=== PATIENT | female | born 1945 | race Caucasian/White ===

== ENCOUNTER → 2020-05-18 10:53 | Outpatient (CLI) | payer OTHER, SELFPAY ==
--- NOTE | ~2020-05-18 | CT_ITS ---
EXAMINATION: CT lung screening DATE: 05/18/2020 11:32 INDICATION: Personal history of tobacco dependence, current smoker with 56 pack year history TECHNIQUE: Computed tomography (CT) of the chest was performed without intravenous contrast. The dose -length product (DLP) was 35.74 mGy-cm. Automated exposure control and iterative reconstruction techn ique were employed. COMPARISON: 11/15/2017 FINDINGS: The previously described 12 mm subsolid nodule of the left lower lobe has enlarged and is n ow predominantly solid measuring 1.7 x 1.5 cm. An approximately 7 mm subsolid nodule adjacent to the major fissure in the superior segment of the left lower lobe is not significantly changed in size. Sc arring is present in the lung apices. There are subsolid nodules of the right middle lobe measuring 4 mm and 5 mm on images 72 and 78, respectively. There is no pleural effusion or pneumothorax. The hea rt size is normal. There is calcified coronary artery atherosclerosis. No pathologically enlarged tho racic lymph nodes are identified. There is mild thoracic spondylosis. IMPRESSION: 1. Lung-RADS category 4B: Findings for which additional diagnostic testing and/or tissue sampling is recommended. PET/CT and/or CT-guided biopsy of the enlarging left lower lobe nodule is recommended. These findings and recommendations were discussed with Tiffany Padilla NP at 1317 hours on 05/18/2020 . Reviewed, dictated and finalized at location A. IMPRESSION: 1. Lung-RADS category 4B: Findings for which additional diagnostic testing and/ or tissue sampling is recommended. PET/CT and/or CT-guided biopsy of the enlarg ing left lower lobe nodule is recommended. These findings and recommendations were discussed with Tiffany Padilla NP at 13 17 hours on 05/18/2020.
== END ==
PROVIDERS: PCP Nurse Practitioner; Visit Provider Nurse Practitioner Family
DX: Z12.2 Encounter for screening for malignant neoplasm of respiratory organs (principal); Z87.891 Personal history of nicotine dependence; R91.1 Solitary pulmonary nodule
CPT/HCPCS: G0297

== ENCOUNTER 2020-05-26 01:31 | Outpatient (CLI) | payer OTHER, SELFPAY ==
[2020-05-26 18:17] LABS: SARS-CoV-2 RNA PCR Negative
== END 2020-05-26 01:32 | disposition home or self-care (01) ==
LOC: ANHCOVIDDT 01:32
PROVIDERS: PCP Nurse Practitioner; Visit Provider Nurse Practitioner Family
DX: Z01.812 Encounter for preprocedural laboratory examination (principal); Z20.828 Contact with and (suspected) exposure to other viral communicable diseases
CPT/HCPCS: 87635; C9803; U0003

== ENCOUNTER 2020-05-28 08:57 | Outpatient (CLI) | payer OTHER, SELFPAY ==
[2020-05-21 14:13] VITALS: BMI 16.7
[2020-05-28] VITALS (11 sets, daily range): BP systolic 129–168; BP diastolic 67–83; PULSE 55–69; RESP 16–18; O2SAT 96–100
--- NOTE | ~2020-05-28 | XR_ITS ---
EXAMINATION: XR chest 1V portable DATE: 05/28/2020 14:45 INDICATION: Left lung nodule status post percutaneous biopsy. TECHNIQUE: A single frontal view of the chest was obtained. COMPARISON: Chest single view at 12:35 PM FINDINGS: There are mild airspace opacities in left lower lobe. No pleural effusion or pneumothorax. The heart size is normal. IMPRESSION: 1. Mild airspace opacities in left lower lobe with interval improvement, consistent with iatrogenic h emorrhage. Reviewed, dictated and finalized at location A. IMPRESSION: 1. Mild airspace opacities in left lower lobe with interval improvement, consis tent with iatrogenic hemorrhage.
--- NOTE | ~2020-05-28 | CT_ITS ---
EXAMINATION: CT biopsy lung DATE: 05/28/2020 12:00 INDICATION: Left lung lower lobe nodule. TECHNIQUE: The procedure including the risks, benefits, and alternatives and possibility of chest tub e placement were discussed with the patient. Risks discussed included infection, approximately 1/20 r isk of symptomatic hemorrhage beyond mild hemoptysis, approximately 1/3 risk of pneumothorax, approxi mately 1/10 risk of pneumothorax severe enough to warrant chest tube placement, and rarely . The patient understood the risks and agreed to proceed. The patient was placed prone. The skin overlyin g the left lung lower lobe was prepped and draped in sterile fashion. Anesthetic was administered wi th 1% lidocaine subcutaneously. A 19 gauge outer needle was advanced under CT guidance to the lesion of interest. A 20 gauge core biopsy needle was then used to obtain 2 core biopsy specimens. The need le was removed and the entry site was cleaned and dressed. The mA was adjusted according to patient s ize. Iterative reconstruction technique was employed. The dose-length product was 146.31 mGy-cm. The re were no immediate complications. FINDINGS: CT images demonstrate the outer needle tip adjacent to a 1.7 cm nodule in left lung lower l obe. IMPRESSION: 1. CT-guided core needle biopsy of a nodule in left lung lower lobe. Reviewed, dictated and finalized at location A.
--- NOTE | ~2020-05-28 | XR_ITS ---
EXAMINATION: XR chest 1V portable DATE: 05/28/2020 12:47 INDICATION: Left lung nodule status post percutaneous biopsy. TECHNIQUE: A single frontal view of the chest was obtained on 2 radiographs. COMPARISON: Chest single view at 11:46 AM FINDINGS: There are airspace opacities in left lower lobe. No pleural effusion or pneumothorax. The h eart size is normal. IMPRESSION: 1. Mildly worsened airspace opacities in left lower lobe, consistent with iatrogenic hemorrhage. Reviewed, dictated and finalized at location A. IMPRESSION: 1. Mildly worsened airspace opacities in left lower lobe, consistent with iatro genic hemorrhage.
--- NOTE | ~2020-05-28 | XR_ITS ---
EXAMINATION: XR chest 1V DATE: 05/28/2020 11:50 INDICATION: Left lung lower lobe nodule status post percutaneous biopsy. TECHNIQUE: A single frontal view of the chest was obtained. COMPARISON: Chest CT 04/2520 FINDINGS: There is mild scarring at the lung apices. Skinfolds overlie left chest. There are airspace opacities in superior segment left lower lobe. No pleural effusion or pneumothorax. The heart size i s normal. IMPRESSION: 1. Airspace opacities in superior segment left lower lobe, consistent with iatrogenic hemorrhage. Reviewed, dictated and finalized at location A. IMPRESSION: 1. Airspace opacities in superior segment left lower lobe, consistent with iatr ogenic hemorrhage.
[2020-05-28 09:27] LABS: Platelet Count Result 329 k/mm3 (150-375)
[2020-05-28 09:36] LABS: INR 0.9; Prothrombin Time 12.3 Seconds (11.1-14.7)
--- NOTE | 2020-05-28 18:07 | SUR.PHASEII ---
0781 DR ELLIS WAS NOTIFIED THAT PT IS STABLE AND DRESSING ON RIGHT UPPER BACK IS STILL CLEAN WITH ONLY SMALL AMOUNT OF SHADOWING THE SIZE OF A PENCIL ERASER THAT HAS REMAINED STABLE.
== END 2020-05-28 15:00 | disposition home or self-care (01) ==
PROVIDERS: Radiology Diagnostic Radiology; PCP Family Medicine; Visit Provider Nurse Practitioner Family
DX: R91.1 Solitary pulmonary nodule (principal)
CPT/HCPCS: 32405; 36415; 71045; 77012; 85049; 85610; 88305

== ENCOUNTER 2020-06-14 12:41 | Outpatient (CLI) | payer OTHER, SELFPAY ==
[2020-06-14 12:55] LABS: Basophils Percent Auto 0.5 % (0.2-1.2); Eosinophils Percent Auto 0.4 % (0-4.4); Hematocrit 40.8 % (37.0-47.0); Hemoglobin 13.3 g/dL (12.0-15.0); Immature Granulocyte Absolute 0.02 K/mm3 (0.00-0.031); Immature Granulocyte Percent A 0.3 % (0-0.5); Lymphocytes Absolute Auto 1.51 K/mm3 (0.9-3.2); Lymphocytes Percent Auto 19.2 % (18.3-44.2); Mean Corpuscular HGB Conc 32.6 g/dl (32-36); Mean Corpuscular Hemoglobin 31.3 pg (26-34); Mean Platelet Volume 8.6 fl (7.4-10.4); Monocytes Absolute Auto 0.5 K/mm3 (0.1-0.6); Monocytes Percent Auto 6.9 % (2.6-8.5); Neutrophils Absolute Auto 5.7 K/mm3 (1.3-6.7); Neutrophils Percent Auto 72.7 % (45.5-73.1); Platelet Count Result 356 k/mm3 (150-375); Red Blood Count 4.25 M/mm3 (4.2-5.4); Red Cell Distribution Width 13.7 % (11.5-14.5); White Blood Count 7.9 K/mm3 (4.5-10.0)
[2020-06-14 16:33] LABS: Alanine Aminotransferase 46 U/L (4-35); Albumin Level 4.5 g/dL (3.5-5.1); Alkaline Phosphatase 114 U/L (38-126); Anion Gap 6 mmol/L (8-16); Aspartate Amino Transferase 42 U/L (14-36); Bilirubin,Total 0.4 mg/dL (0.2-1.3); Blood Urea Nitrogen 14 mg/dL (7-17); Calcium 10.3 mg/dL (8.4-10.2); Carbon Dioxide 33 mmol/L (22-30); Chloride 100 mmol/L (98-107); Estimated Glomerular Filt Rate > 60; Glucose 92 mg/dL (65-105); Potassium 4.6 mmol/L (3.4-5.0); Sodium 139 mmol/L (137-145)
== END 2020-06-14 12:42 | disposition home or self-care (01) ==
LOC: ANHLAB 12:42
PROVIDERS: PCP Family Medicine; Visit Provider Internal Medicine Hematology & Oncology
DX: C34.32 Malignant neoplasm of lower lobe, left bronchus or lung (principal)
CPT/HCPCS: 36415; 80053; 85025

== ENCOUNTER 2020-07-06 08:58 | Outpatient (CLI) | payer OTHER, SELFPAY ==
--- NOTE | ~2020-07-06 | PE_ITS ---
EXAMINATION: PET skull to mid thigh DATE: 07/06/2020 12:20 INDICATION: Malignant neoplasm of the left lower lobe TECHNIQUE: Blood glucose level was 98 mg/dL. 10.671 mCi of 18-fluorodeoxyglucose (18-FDG) was adminis tered i.v. Low dose computed tomography (CT) images were acquired from the base of the brain to the p roximal thighs for attenuation correction and anatomic localization. Positron emission tomography (PE T) images were acquired in the same distribution beginning 61 minutes after injection. The dose-lengt h product (DLP) was 202.54 mGy-cm. COMPARISON: 05/28/2020 FINDINGS: Head/neck: No abnormal FDG uptake is identified. Chest: There is a 1.8 x 1.5 cm left lower lobe nodule with abnormal FDG uptake and SUV max of 3.8. No additional suspicious abnormal FDG uptake is identified. Tiny groundglass nodules of the right lung described on the comparison CT are stable and without FDG uptake. Also seen is a stable cavitary nodu le in the superior segment of the left lower lobe without FDG uptake. There is no pleural effusion or pneumothorax. No pathologically enlarged thoracic lymph nodes are identified. The heart size is norm al. Calcified coronary artery atherosclerosis is present. Abdomen/pelvis/proximal thighs: No abnormal FDG uptake is identified. Physiologic FDG activity is pre sent in the bowel and urinary tract. The liver, spleen, pancreas, gallbladder, and adrenal glands are normal. The kidneys are unremarkable. No pathologically enlarged abdominal or pelvic lymph nodes are identified. There is calcified atherosclerosis of the aorta and many of the other arteries. There is no free intraperitoneal gas or evidence of bowel obstruction. Musculoskeletal: No abnormal FDG uptake is identified. IMPRESSION: 1. Left lower lobe nodule with abnormal FDG uptake, consistent with biopsy-proven adenocarcinoma. No evidence of metastatic disease although absence of FDG uptake in small subsolid nodules could relate to their size and composition and attention on follow-up examination is recommended. Reviewed, dictated and finalized at location A. [employer] TRIAL SPECIALIST IMPRESSION: 1. Left lower lobe nodule with abnormal FDG uptake, consistent with biopsy-prov en adenocarcinoma. No evidence of metastatic disease although absence of FDG up take in small subsolid nodules could relate to their size and composition and a ttention on follow-up examination is recommended.
[2020-07-06 10:53] LABS: Glucose Point of Care 98 (65-105)
--- NOTE | 2020-07-16 12:19 | WPDPFTINT ---
PFT Interpretation PFT Interpretation: This PFT met all criteria for ATS standards and reproducibility FEV/FVC 66% FEV1 60% or 1.26 liters FVC 64% or 1.92 liters No bronchodilator challenge was given TLC 114% RV 189% RV/TLC 68% DLCO 72% when adjusted for alveolar volume but not adjusted for hemoglobin Flow volume loops showed significant expiratory coving Impression: Moderate airflow obstruction with air trapping and mildly decreased diffusion capacity. No bronchodilator challenge was given. This pattern is suggestive of COPD but I cannot rule out an Asthma component. Clinical correlation is advised.
== END 2020-07-06 08:59 | disposition home or self-care (01) ==
PROVIDERS: PCP Family Medicine; Visit Provider Internal Medicine Hematology & Oncology
DX: C34.32 Malignant neoplasm of lower lobe, left bronchus or lung (principal)
CPT/HCPCS: 78815; 94375; 94726; 94729; A9552

== ENCOUNTER 2020-08-10 08:04 | Outpatient (CLI) | payer OTHER, SELFPAY ==
--- NOTE | 2020-08-10 08:10 | ECHO_ITS ---
Patient Info Name: Sharmila Azevedo Age: 75 years : 1945 Gender: Female Ht: 66 in Wt: 104 lbs BSA: 1.47 m2 HR: 67 bpm BP: 132 / 66 mmHg Technical Quality: Good Exam Date: 08/10/2020 8:26 AM Exam Location: [facility] Patient Status: Outpatient Admit Date: 08/10/2020 Staff Ordering Physician: Tiffany Padilla NP Network Support: Cristobal Murcia RDCS, RT Attending Provider: Tiffany Padilla NP Referring Physician: Valerie DELGADO; Exam Type: CA echo doppler color flow Study Info Indications R60.9 - Edema, unspecified Complete two-dimensional, color flow and Doppler transthoracic echocardiogram is performed. Strain analysis performed. Summary 1. Complete two-dimensional, color flow and Doppler transthoracic echocardiogram is performed. 2. Left ventricular chamber dimension is normal. 3. Left ventricular systolic function is normal, estimated at 65-70%. 4. The left ventricular diastolic function is grade I diastolic dysfunction. 5. E/e' 19 is elevated. 6. Global longitudinal strain is normal at -18.4%. 7. Left atrial chamber dimension is moderately enlarged. 8. There is mild aortic valve sclerosis. 9. The mitral valve has moderately calcified annulus. 10. There is mild to moderate mitral valve regurgitation. 11. There is mild to moderate tricuspid valve regurgitation. 12. Mild pulmonary hypertension, estimated pulmonary arterial systolic pressure is 42 mmHg. 13. There is trace pulmonic regurgitation. 14. Normal inferior vena cava with <50% collapse upon inspiration consistent with elevated right atrial pressure, 10 mmHg. Left Ventricle E/e' 19 is elevated. Global longitudinal strain is normal at -18.4%. Left ventricular chamber dimension is normal. Left ventricular systolic function is normal, estimated at 65-70%. The left ventricular diastolic function is grade I diastolic dysfunction. Right Ventricle Right ventricular chamber dimension is normal. Right ventricular systolic function is normal. Left Atria Left atrial chamber dimension is moderately enlarged. Right Atria Right atrial chamber dimension is normal. Aortic Valve The aortic valve is trileaflet. There is mild aortic valve sclerosis. There is no aortic valve stenosis. There is no aortic valve regurgitation. Pulmonic Valve There is trace pulmonic regurgitation. Mitral Valve The mitral valve has moderately calcified annulus. There is no mitral valve stenosis. There is mild to moderate mitral valve regurgitation. Tricuspid Valve There is mild to moderate tricuspid valve regurgitation. Mild pulmonary hypertension, estimated pulmonary arterial systolic pressure is 42 mmHg. Pericardium/Pleural There is no pericardial effusion. Inferior Vena Cava Normal inferior vena cava with <50% collapse upon inspiration consistent with elevated right atrial pressure, 10 mmHg. Aorta The aortic root size at the sinus of Valsalva is normal. Left Ventricular Outflow Tract Name Value Normal LVOT 2D LVOT Diameter 2.0 cm LVOT Doppler LVOT Peak Gradient 6 mmHg LVOT Mean Gradient 3
== END 2020-08-10 08:05 | disposition home or self-care (01) ==
PROVIDERS: PCP Family Medicine; Visit Provider Nurse Practitioner Family
DX: M79.89 Other specified soft tissue disorders (principal); I08.3 Combined rheumatic disorders of mitral, aortic and tricuspid valves
CPT/HCPCS: 93306

== ENCOUNTER 2020-10-04 01:13 | Day surgery (SDC) | payer OTHER, SELFPAY ==
[2020-09-29 15:16] VITALS: BMI 16.9
[2020-10-04] VITALS (15 sets, daily range): BP systolic 133–181; BP diastolic 57–80; PULSE 62–80; RESP 16–20; TEMP 35.9–36.9; O2SAT 84–100; BMI 16.5
--- NOTE | ~2020-10-04 | XR_ITS ---
EXAMINATION: XR chest 2V DATE: 10/05/2020 08:45 INDICATION: Right pneumothorax TECHNIQUE: AP and lateral views of the chest are obtained. COMPARISON: 10/04/2020 FINDINGS: There is a tiny persistent right apical pneumothorax without significant change. A right ch est tube is partially retracted. The chest tube demonstrates to side ports, one of which is in the pl eural space and the other is in the right chest wall. A right internal jugular Port-A-Cath ends with its tip in the distal superior vena cava. There are stable left basilar airspace opacities. A small l eft pleural effusion is present. The cardiomediastinal silhouette is normal. There is severe thoracic spondylosis. IMPRESSION: 1. Persistent small right apical pneumothorax without significant change. Right chest drain has been partially retracted with one of two side port is now seen in the chest wall. 2. Small left pleural effusion. 3. Stable left basilar airspace opacities, consistent with atelectasis versus pneumonia. Reviewed, dictated and finalized at location A. LE WRAPPER IMPRESSION: 1. Persistent small right apical pneumothorax without significant change. Right chest drain has been partially retracted with one of two side port is now seen in the chest wall. 2. Small left pleural effusion. 3. Stable left basilar airspace opacities, consistent with atelectasis versus p neumonia.
--- NOTE | ~2020-10-04 | XR_ITS ---
EXAMINATION: XR chest port-a-cath/central DATE: 10/04/2020 13:40 INDICATION: Port placement. TECHNIQUE: A single frontal view of the chest was obtained. COMPARISON: Chest single view 05/28/2020 FINDINGS: There is volume loss of left hemithorax, likely from left lower lobectomy. There is a small left pleural effusion. There is mild scarring at left lung apex. There are airspace opacities at lef t lung base. There is a small right pneumothorax. The heart size is normal. There is a right internal jugular port with tip in superior vena cava. IMPRESSION: 1. Small right pneumothorax. 2. Small left pleural effusion. 3. Airspace opacities at left lung base, consistent with atelectasis versus pneumonia. 4. Mild scarring at left lung apex. 5. Right internal jugular port with tip in superior vena cava. Reviewed, dictated and finalized at location A. RTISING CONSULTANT IMPRESSION: 1. Small right pneumothorax. 2. Small left pleural effusion. 3. Airspace opacities at left lung base, consistent with atelectasis versus pne umonia. 4. Mild scarring at left lung apex. 5. Right internal jugular port with tip in superior vena cava.
--- NOTE | ~2020-10-04 | XR_ITS ---
XR chest-chest tube insert/pos 10/04/2020 17:36 Indication: Post chest tube placement. Evaluate pneumothorax. Procedure: AP portable chest Comparison: Comparison to multiple prior studies sequentially, with oldest reviewed study dated 05/01. Findings: Interval placement of right chest tube with significantly decreased size of right pneumotho rax. Portacatheter tip in the SVC. Stable cardiomediastinal silhouette. There is focal consolidation the left lower lung with small left pleural effusion. Impression: 1: Decreased size of right pneumothorax post chest tube placement. 2: Left lower lobe airspace disease which may represent atelectasis and/or pneumonia. 3: Small left pleural effusion. Reviewed, dictated and finalized at location A. APEUTIC SPECIALIST Impression: 1: Decreased size of right pneumothorax post chest tube placement. 2: Left lower lobe airspace disease which may represent atelectasis and/or pneu monia. 3: Small left pleural effusion.
--- NOTE | ~2020-10-04 | XR_ITS ---
EXAMINATION: XR chest 2V DATE: 10/05/2020 12:04 INDICATION: Right pneumothorax TECHNIQUE: PA and lateral views of the chest are obtained. COMPARISON: 0843 hours FINDINGS: A small right apical pneumothorax persists without significant change. A right-sided chest tube is again seen with one side port remaining in the subcutaneous tissues of the right chest wall. The tip of the tube is within the thorax. The heart size is normal. A small left pleural effusions un changed. Left basilar airspace opacities are stable. Severe thoracic spondylosis is noted. IMPRESSION: 1. Small right apical pneumothorax without significant change. 2. Stable small left pleural effusion. Repeat. Stable left basilar airspace opacity, consistent with atelectasis versus pneumonia. Reviewed, dictated and finalized at location A. ENSARY TECHNICIAN IMPRESSION: 1. Small right apical pneumothorax without significant change. 2. Stable small left pleural effusion. Repeat. Stable left basilar airspace opa city, consistent with atelectasis versus pneumonia.
--- NOTE | ~2020-10-04 | XR_ITS ---
EXAMINATION: XR fl guide central line place EXAM DATE: 10/04/2020 13:29 INDICATION: Right-sided portacatheter placement. TECHNIQUE: Fluoroscopy used during XR fl guide central line place performed by Dr. Rhett Villareal MD. The DAP for this procedure was 0.02 mGym2. FINDINGS: Right IJ approach portacatheter identified, tip at the cavoatrial junction. Correlate wit h procedure note. IMPRESSION: Fluoroscopy used during portacatheter placement.. Reviewed, dictated and finalized at location B. TICE PERFORMANCE MANAGER
--- NOTE | ~2020-10-04 | XR_ITS ---
XR chest 1V portable 10/04/2020 15:34 Indication: AP portable chest Procedure: Comparison to multiple prior studies sequentially, with oldest reviewed study dated 05/28. Comparison: Comparison to multiple prior studies sequentially, with oldest reviewed study dated 05/01. Findings: Significant enlargement of large right pneumothorax shift to the left. Small left pleural e ffusion. Mild interstitial edema. Portacatheter tip in the SVC. Small amount of subcutaneous gas in t he left supraclavicular region correlate for recent intervention. Impression: 1: Enlarging right pneumothorax with mediastinal shift to the left. 2: Mild interstitial edema. 3: Small left pleural effusion. Reviewed, dictated and finalized at location A. COOK Impression: 1: Enlarging right pneumothorax with mediastinal shift to the left. 2: Mild interstitial edema. 3: Small left pleural effusion.
--- NOTE | 2020-10-04 08:25 | PM.HPGS ---
History of Present Illness History of Present Illness Consent: Risks, benefits, and alternatives of placement of a Port-A-Cath have been discussed and questions answered. Patient agrees to proceed with procedure. Chief complaint: Malignant Neoplasm LLL Of Lung Narrative: Sharmila Azevedo is a 75 year old female who was recently found to have a malignant neoplasm of the lower lobe left lung. Further treatment including chemotherapy is planned. Therefore she has been referred for placement of a Port-A-Cath. Pt has had a lung lobectomy on the left about 3 weeks ago and has recovered well form that. She has some Tramadol at home to use for pain. Review of Systems Constitutional: Constitutional: Reports no additional constitutional complaints, Reports fatigue and Denies malaise Eyes: Eyes: Denies change in vision and Denies loss of vision ENT: Reports Normal hearing present, Denies change in voice, Denies dizziness, Denies hoarseness, Denies sore throat and Reports other (no scars from previous surgery. ) Cardiovascular: Cardiovascular: Denies chest pain, Denies leg edema and Denies dyspnea Respiratory: Respiratory: Denies cough, Reports dyspnea ( Mild with exertion) and Denies wheezing Comments: Long history of smoking 1 pack a day. Pt had a Thorocospy and left lower lobe lung resection for CAncer at [facility] in [facility] about 3 weeks ago. Gastrointestinal: Gastrointestinal: Denies hematochezia, Denies change in bowel habits and Denies heartburn Genitourinary: Genitourinary: Denies urinary frequency and Denies urinary incontinence Neurologic: Reports Normal hearing present, Denies confusion, Denies dizziness, Denies loss of vision, Denies memory loss and Denies seizure-like activity Psychiatric: Psychiatric: Denies confusion, Denies depression and Denies memory loss Endocrine: Endocrine: Denies cold intolerance and Reports fatigue Hematologic/Lymphatic: Hematologic/Lymphatic: Denies easy bleeding and Denies easy bruising Allergic/Immunologic: Allergic/Immunologic: Denies wheezing PMFSH Past Medical History Medical History Abnormal echocardiogram Adenocarcinoma of lung (~07/2020) Chronic migraine with aura Essential hypertension (Unknown) Surgical History Surgical History History of colonoscopy with polypectomy (~07/2018) Dr Ritter - repeat in 5 years History of lung biopsy (~05/2020) Family History Family History Mother Hypertension Cerebrovascular accident Sibling Asthma Social History Social History Smoking status: Former smoker Tobacco type: cigarettes Second hand tobacco smoke exposure: Yes Additional smoking assessment comments: STATES 1PK/DAY/SINCE AGE 18 - NONE SINCE 09/12/20 Alcohol intake: former Drinks per week: 10 Alcohol use details: STATES NONE SINCE 09/12/20 Substance use: never Substance use type: does not use Living arrangements: alone Additional living arrangements comments: [facility] CURRENT[facility] IN [facility] Spiritual care concerns: No Meds Home Medications and Allergies Home Medications Medication Instructions Recorded Confirmed Type aspirin 81 mg chewable tablet 81 mg PO DAILY #30 tablet 06/04/19 10/04/20 Rx alendronate 70 mg tablet 70 mg PO WEEKLY #14 tablet 03/30/20 10/04/20 Rx calcium carbonate [Calcium 600] 1,200 mg PO DAILY 05/21/20 10/04/20 History cholecalciferol (vitamin D3) 50 50 mcg PO DAILY 07/15/20 10/04/20 History mcg (2,000 unit) capsule B-complex with vitamin C [Vitamin 1 tablet PO DAILY 09/29/20 10/04/20 History B Complex-C] acetaminophen [Tylenol] 650 mg PO Q6H PRN 09/29/20 10/04/20 History apixaban [Eliquis] See Rx Instructions .ROUTE .COMPLEX 09/29/20 10/04/20 History docusate sodium [Colace] 100 mg PO B
--- NOTE | 2020-10-04 08:56 | ECG_ITS ---
Measurements Intervals [place] Rate: 68 P: 62 LA: 137 QRS: 68 QRSD: 87 T: 66 QT: 406 QTc: 432 Interpretive Statements SINUS RHYTHM WITH SINUS ARRHYTHMIA POSSIBLE LEFT ATRIAL ENLARGEMENT BASELINE ARTIFACT- I, III, AVR, AVL, AVF BORDERLINE ECG Electronically Signed On 10-04-2020 11:48:55 CITY EDITOR by Abdoulaye Amaro D.O.
[2020-10-04] MEDS: KETOROLAC 15 MG/ML VIAL (*BKC) IV PUSH (11:24)
[2020-10-04] MEDS: LACTATED RINGERS 1,000 ML 30 ML IV CONT (11:24)
[2020-10-04 11:38] LABS: INR 0.9; Prothrombin Time 12.3 Seconds (11.1-14.7)
[2020-10-04 11:39] LABS: Partial Thromboplastin Time 29.5 SECONDS (22.3-36.8)
--- NOTE | 2020-10-04 12:13 | WPDANESEPPF ---
Anes - Initial Pre Proc Eval Procedure: Operation Date: 10/04/20 12:30 Proposed Procedures p Insertion Kenna Cath - Rhett Villareal MD Date/Time: 10/04/20 12:13 Surgeon: Rhett Villareal MD Pre Op Diagnosis: Malignant Neoplasm LLL Of Lung Patient Data Age: 75 Gender: F Height: 5 ft 6 in Weight: 44.25 kg Last Vital Signs Temp 36.8 C 10/04/20 10:48 Pulse 76 10/04/20 10:48 Resp 16 10/04/20 10:48 BP 133/57 L 10/04/20 10:48 Pulse Ox 100 10/04/20 10:48 Allergies Allergy/AdvReac Type Severity Reaction Status Date / Time No Known Allergies Allergy Unverified 10/04/20 11:00 Home Medications Medication Instructions Recorded Confirmed Type aspirin 81 mg chewable tablet 81 mg PO DAILY #30 tablet 06/04/19 10/04/20 Rx alendronate 70 mg tablet 70 mg PO WEEKLY #14 tablet 03/30/20 10/04/20 Rx calcium carbonate [Calcium 600] 1,200 mg PO DAILY 05/21/20 10/04/20 History cholecalciferol (vitamin D3) 50 50 mcg PO DAILY 07/15/20 10/04/20 History mcg (2,000 unit) capsule B-complex with vitamin C [Vitamin 1 tablet PO DAILY 09/29/20 10/04/20 History B Complex-C] acetaminophen [Tylenol] 650 mg PO Q6H PRN 09/29/20 10/04/20 History apixaban [Eliquis] See Rx Instructions .ROUTE .COMPLEX 09/29/20 10/04/20 History docusate sodium [Colace] 100 mg PO BID 09/29/20 10/04/20 History gabapentin 100 mg PO TID PRN 09/29/20 10/04/20 History lisinopril 5 mg PO DAILY 09/29/20 10/04/20 History Laboratory Tests 10/04/20 11:04 PT 12.3 Seconds Seconds (11.1-14.7) INR 0.9 APTT 29.5 SECONDS SECONDS (22.3-36.8) Patient hx anesthesia problems: none Family hx anesthesia problems: none PMFSH Past Medical History Medical History Abnormal echocardiogram Adenocarcinoma of lung (~07/2020) Chronic migraine with aura Essential hypertension (Unknown) Surgical History Surgical History History of colonoscopy with polypectomy (~07/2018) Dr Ritter - repeat in 5 years History of lung biopsy (~05/2020) Family History Family History Mother Hypertension Cerebrovascular accident Sibling Asthma Social History Social History Smoking status: Former smoker Tobacco type: cigarettes Second hand tobacco smoke exposure: Yes Additional smoking assessment comments: STATES 1PK/DAY/SINCE AGE 18 - NONE SINCE 09/12/20 Alcohol intake: former Drinks per week: 10 Alcohol use details: STATES NONE SINCE 09/12/20 Substance use: never Substance use type: does not use Living arrangements: alone Additional living arrangements comments: [facility] Spiritual care concerns: No Anes - Eval Final PreProcedure Day of Procedure 10/04/20 12:13 Patient weight: thin Heart: regular rate and rhythm Lungs: decreased breath sounds Airway: Mallampati scale class II Neurological: alert and oriented Last oral intake: >/= 8 hours ASA classification: III Emergent: no Anesthetic plan: proceed Anesthesia type and monitoring: general GIVS and standard monitoring Informed Consent: The patient's anesthetic plan and its attendant risks and benefits were discussed with the patient/family/POA. Questions were solicited and answers provided to the satisfaction of the patient/family/POA.
--- NOTE | 2020-10-04 12:42 | WPDHPUPDATE1 ---
History and Physical Update Update Date/Time: 10/04/20 12:42 History and Physical has been reviewed, including an updated exam of the patient. There are NO changes in the patient's condition. Risks, benefits, and alternatives of a US guided walker cath placement have been discussed and questions answered. Patient agrees to proceed with procedure.
[2020-10-04] MEDS: ceFAZolin 2 GM/D5W 50 ML 2 GM/50 ML BAG IVPB (12:48)
[2020-10-04] MEDS: BUPIVACAINE/EPINEPHRINE 0.5% 30 ML VIAL 50 ML INFILTRATE (13:25)
[2020-10-04] MEDS: HEPARIN SODIUM 5,000 UNITS/ML VIAL 5000 UNITS IRRIGATION (13:27)
--- NOTE | 2020-10-04 13:38 | PM.PROC ---
Procedure Note - Detailed Date of procedure: 10/04/20 Pre-op diagnosis: Malignant Neoplasm LLL Of Lung Post-op diagnosis: same Procedure performed: US guided placement of Port-A-Cath Description of procedure: Patient was seen and marked in the pre-op area prior to coming to the OR. Patient was brought to the operating room. He was placed supine on the operating table and general IV sedation was induced. The nurse vending technician provided oxygen and IV sedation. Patient's head was carefully turned to the left side while in the supine position and the patient's entire neck and anterior chest on both sides was prepped and draped in the usual sterile fashion. Following this the appropriate time-out was completed confirming procedure and patient. We confirmed that all the needed equipment was present in the room. Following this the ultrasound probe was draped into the field and using the probe we carefully identified the carotid artery and jugular vein on the right neck. I marked the skin directly over the Rt. internal jugular vein. Following this, using the continuous ultrasound guidance, a Cook needle was placed through the skin into this vein. I also did take 1 image X and saved to the chart with respect to the patient's right neck vascular anatomy. I then was able to draw back good dark blood. Once this was completed a guidewire using a J-tip was advanced through the needle and then the needle and the guidewire cover were withdrawn. C-arm fluoroscopy was used to confirm that the guidewire was nicely in the venous system. Once this was confirmed with the C - arm I preceded on by making the pocket for the port on the patient's anterior right chest approximately 3 centimeters below the clavicle overlying the chest wall. Local anesthetic was infiltrated into the skin where there was a transverse incision marked out. Incision was made and we made a pocket inferior to the incision with just a little dissection superior. The low-profile port was tried in the pocket and seemed to fit well. Following this the catheter which had been placed on a tunneling device was tunneled from the port site on the anterior right chest up to the right neck where a small incision had been made with an #11 blade knife. Then the catheter was pulled through so that we would have 15 centimeters to put into the central venous system once the dilation took place. Following this we placed the dilator and sheath over the guidewire in the jugular vein and carefully dilated the tract into the central venous system. The guidewire and dilator were then removed, carefully covering the end of the sheath to prevent air embolus. The end of the catheter which had been cut off straight across and the tip checked was then inserted into the sheath and into the neck. I then carefully pulled the 2 arms of the tear-away sheath away as the curriculum assistant principal held the catheter in position with a DeBakey forceps. Following this we checked the position of the catheter with C-arm fluoroscopy confirming that the tip seemed to be in the distal superior vena cava near the junction with the right atrium. I felt that it was in good position and so the rest of the catheter was pulled down toward the feet into the port site. We then measured to the appropriate position to cut the catheter to attach it to the port stem. Then the connector sealing device for the catheter port was placed onto the catheter and then the catheter cut to the appropriate length and inserted onto the stem of the port. Then the connector was advanced onto the stem over the catheter sealing it to the port. A single 3- 0 Prolene suture was also used during this to suture the connector to the port and to the underlying musculature. Following this at one other site the port was sutured to the underlying musculature with the 3-0 Proline. Both prior to connecting the catheter to the port and then using a straight Munoz needle following this connection, the port
--- NOTE | 2020-10-04 14:47 | SUR.PHASEII ---
1436 - pt called out for nursing staff in regards to SOB. after getting dressed, pt became SOB. o2 sat at 84% on RA. pt placed on 2l/nc. pt remains alert and oriented x3. dr. spears called and updated. orders received. daughter called and updated.
--- NOTE | 2020-10-04 15:08 | SUR.PHASEII ---
1505 - dr. spears called for update on pt. no change in pt status. o2 sat mainly between 90-94% on o2 at 2l/nc.
--- NOTE | 2020-10-04 16:01 | SUR.PHASEII ---
6472 - dr. patino called with chest xray results. dr. spears called 1600 - dr. spears in room talking with pt
--- NOTE | 2020-10-04 16:24 | SUR.OPER ---
Procedure done on an OR stretcher in the PACU
--- NOTE | 2020-10-04 16:24 | SUR.PHASEII ---
1620 - pt to PACU for chest tube placement.
[2020-10-04] MEDS: LIDO 1%/EPINEPHRINE 1:100,000 50 ML VIAL 10 ML INFILTRATE (16:29)
--- NOTE | 2020-10-04 17:05 | SUR.PHASEII ---
1700 s/p chest insertion. pt awake. pt narayan procedure well. pt states that she doesnt feel SOB like before. o2 sat maintaining at 100% on o2 at 2l/nc. waiting chest xray results and will transfer to floor. pt's daughter updated.
--- NOTE | 2020-10-04 17:11 | PM.PROC ---
Procedure Note - Detailed Date of procedure: 10/04/20 Pre-op diagnosis: Malignant Neoplasm LLL Of Lung 1. Right pneumothorax status post Port-A-Cath placement Post-op diagnosis: same Procedure performed: Placement of right-sided 16 [place] Thal Quick cath chest tube. Description of procedure: Patient was moved to the recovery room and a gown applied. New saline lock was placed by her nurse. Following this with the help of some of the OR staff we did a time-out and we prepped the entire right side of her chest from the nipple to the bed and into the axilla. Her right arm was up above her head. Following this after coaching the patient about local anesthetic, I used 2% xylocaine with epinephrine to instill some local anesthetic over about the 5th rib and around the mid axillary line parallel with the right nipple. Following this a small incision was made with 11 blade knife about half a cm. Following this the hemostat was used to spread the tissue and I felt the rib. I put more local anesthetic in and then we put 18 gauge needle just over this rib finding a good air green occurred and a guidewire was advanced into the chest cavity. Following this we used 3 dilators 12, 14, and 16 [place] and then a 16 [place] chest tube was placed over the wire into the chest cavity such that about 8 cm of the tube would be into the chesst past the last hole in the chest tube in the chest cavity on the right. Patient tolerated the procedure very well. Following this the inner cannulas were removed and the chest tube was connected to Pleur-Evac water-seal. With coughing the patient had good bubbling over through the Pleur-Evac chest tube system. Patient's shortness of breath resolved. She went from being about 92% O2 pulse oximetry on 4 L of oxygen to 100%. Chest tube was then sutured in the place with a 2- 0 silk suture in standard fashion throwing 1 throw and then wrapping the suture around the tube such that it will be used as a sealing suture when we remove the chest tube. Three pieces of nylon 1 inch tape were used to secure the chest tube to the chest wall after placing Xeroform gauze and a split 2 x 2 around the chest tube exit site. Patient tolerated the procedure well. Post procedure CXR ordered. Implants: 16 [place] chest tube right chest cavity Anesthesia: local (2% xylocaine with epinephrine) and other Surgeon: Rhett Villareal MD Outside Sales Representative: BERTRAND Nowak, OR 1st assist Estimated blood loss (mL): 2 Drains: Yes (Right 16 [place] chest tube tube Pleur-Evac and on the floor to suction.) Packing: No Pathology: none sent Complications: No immediate complications Condition: stable Disposition: PACU Findings: A green of air was achieved with needle catheterization laterally at the mid axillary line just over the 5th rib followed by guidewire followed by 2 dilators and then the 16 [place] chest tube sutured to the skin at approximately 8 cm from the last opening.
[2020-10-04] MEDS: ACETAMINOPHEN 500 MG TABLET 1000 MG PO (17:19)
--- NOTE | 2020-10-04 17:31 | PM.PNGS ---
Progress Note: A&P Assessment and Plan (1) Pneumothorax, right: Code(s): J93.9 - Pneumothorax, unspecified Status: Acute Assessment and Plan: This is most likely secondary to todays procedure even though I felt like I was high in the neck and did not draw back any air with aspiration while obtaining venous access. Will plan to check a 2 veiw CXR in AM with the CT on water seal. Pt knows we may need to wait one or two days for this air leak to seal. (2) Adenocarcinoma of lung: Onset Date: ~07/2020 Qualifiers: Laterality: left Qualified Code(s): C34.92 - Malignant neoplasm of unspecified part of left bronchus or lung Code(s): C34.90 - Malignant neoplasm of unspecified part of unspecified bronchus or lung Status: Acute Assessment and Plan: Currently 3 weeks S/P left lower lobectomy and planning for chemotheraphy. (3) Current tobacco use: Code(s): Z72.0 - Tobacco use Status: Acute (4) Essential hypertension: Onset Date: Unknown Code(s): I10 - Essential (primary) hypertension Status: Chronic Assessment and Plan: Continue pts. home medications. Subjective Subjective Date/Time Seen: 10/04/20 17:31 Post Op day: Same day o Patient reports: feels better Interval history: The patient was getting ready to leave the post-op area when she noticed some shortness of breath and on the postop chest x-ray a small right pneumothorax was noted by the Radiolgist. Therefore, she was watched for 1.5 hours and repeat chest x-ray showed a larger pneumothorax on the right with some left-sided shift. Therefore, I decided to put a right-sided chest tube in. This was discussed with the patient and her daughter and they consented for same. Chest tube was placed in the recovery room before the patient went to her room for an at least admission for overnight. Patient wants to be a full code. She is admitted overnight and I will repeat a chest x-ray tomorrow morning on water seal. Will keep the Pleur-Evac on suction overnight to let the lung completely re-expand. Postop chest x-ray was checked in the recovery room after tube placement by me and the Rt. pneumothorax and symptoms significantly resolved but not completely at the apex. (See radiology report to come later). Review of Systems Constitutional: Constitutional: Reports no additional constitutional complaints ENT: Reports other (Mucous Membranes moist.) Cardiovascular: Cardiovascular: Denies dyspnea Respiratory: Respiratory: Denies pain on inspiration and Denies dyspnea Musculoskeletal: Musculoskeletal: Reports other (No calf swelling or edema) Integumentary/Breasts: Skin/Breast: Reports system reviewed and no additional complaints, except as docu Exam Const: General: cooperative, no acute distress, alert and awake Orientation/consciousness: patient oriented x3 HENMT: Mouth: Yes moist mucous membranes Neck: Neck: normal visual inspection Chest: Chest palpation & inspection: normal inspection of the chest Breast/axilla palpation: other (No palpable crepitus) Other: Small right-sided chest tube in position and nicely sealed in place with dressing and nylon tape. Incisions from her previous Lt. throacoscopy and from today's Port-a- cath are dry and intact. Resp: Effort & Inspection: normal respiratory effort Auscultation: clear to auscultation bilaterally Cardio: Jugular venous distension: no JVD Rate: regular rate Rhythm: regular rhythm GI: Rectal Exam: deferred Neuro: General: patient oriented x3 and moves all extremities Speech: normal speech Extrem: General: normal exam except as noted Psych: Mental Status: mental status grossly normal Speech and movement: Normal speech and movement present Affect: normal affect Thought content: Yes Normal thought content present Objective Data Vital Signs Vital Signs: Vital Signs - 24 hr 10/04/20 10:48 10/04/20 13:40 10/04/20 14:00 Te
--- NOTE | 2020-10-04 17:52 | SUR.PHASEII ---
1750 - chest xray noted. pt to room
--- NOTE | 2020-10-04 18:03 | PC.NURSE ---
This patient, Sharmila Azevedo, was admitted to Medical Room 345-. Patient/family oriented to hospital policies and general routines including ID bracelet, bed and alarms, visiting hours, pain management, procedures, bathroom and other care routines, personal items, smoking policy, room service/diet, and visiting hours. Information on how to activate the Rapid Response Team has been discussed. Patient/Family are encouraged to report perceived risks to care and to ask questions if they do not understand what they are told or what they should do.
[2020-10-04] MEDS: DOCUSATE SODIUM 100 MG CAPSULE PO (18:49)
[2020-10-04] MEDS: GABAPENTIN 100 MG CAPSULE PO (21:27)
[2020-10-04] MEDS: HYDROcodone/acetaminophen (*CRX) 5-325 MG TABLET 1 TAB PO (22:21)
[2020-10-05] VITALS: BP 148/65; PULSE 64; RESP 16; TEMP 36.6; O2SAT 100
[2020-10-05 04:00] VITALS: BP 152/63; PULSE 63; RESP 16; TEMP 36.6; O2SAT 100
[2020-10-05] MEDS: HYDROcodone/acetaminophen (*CRX) 5-325 MG TABLET 1 TAB PO (05:12)
[2020-10-05 06:11] LABS: Basophils Absolute Auto 0.1 K/mm3 (0.0-0.1); Basophils Percent Auto 0.6 % (0.2-1.2); Eosinophils Absolute Auto 0.1 K/mm3 (0-0.3); Eosinophils Percent Auto 1.2 % (0-4.4); Hemoglobin 9.5 g/dL (12.0-15.0); Immature Granulocyte Absolute 0.06 K/mm3 (0.00-0.031); Immature Granulocyte Percent A 0.6 % (0-0.5); Lymphocytes Absolute Auto 1.19 K/mm3 (0.9-3.2); Mean Corpuscular HGB Conc 31.7 g/dl (32-36); Mean Corpuscular Hemoglobin 30.5 pg (26-34); Mean Corpuscular Volume 96.5 fl (80-100); Mean Platelet Volume 8.8 fl (7.4-10.4); Monocytes Absolute Auto 0.9 K/mm3 (0.1-0.6); Neutrophils Absolute Auto 8.5 K/mm3 (1.3-6.7); Neutrophils Percent Auto 78.6 % (45.5-73.1); Platelet Count Result 592 k/mm3 (150-375); Red Blood Count 3.11 M/mm3 (4.2-5.4); Red Cell Distribution Width 12.9 % (11.5-14.5); White Blood Count 10.8 K/mm3 (4.5-10.0)
[2020-10-05 06:20] LABS: Alanine Aminotransferase 28 U/L (4-35); Albumin Level 3.5 g/dL (3.5-5.1); Alkaline Phosphatase 242 U/L (38-126); Anion Gap 1 mmol/L (8-16); Aspartate Amino Transferase 30 U/L (14-36); Bilirubin,Total 0.3 mg/dL (0.2-1.3); Blood Urea Nitrogen 16 mg/dL (7-17); Calcium 8.4 mg/dL (8.4-10.2); Carbon Dioxide 32 mmol/L (22-30); Chloride 101 mmol/L (98-107); Estimated CRCL calculation 52 ml/min; Estimated Glomerular Filt Rate > 60; Glucose 87 mg/dL (65-105); Magnesium 2.1 mg/dL (1.6-2.3); Potassium 4.2 mmol/L (3.4-5.0); Sodium 134 mmol/L (137-145)
[2020-10-05 08:00] VITALS: O2SAT 99
[2020-10-05] MEDS: ASPIRIN 81 MG CHEWABLE TABLET PO (08:03)
[2020-10-05] MEDS: lisinopriL 5 MG TABLET PO (08:03)
[2020-10-05] MEDS: DOCUSATE SODIUM 100 MG CAPSULE PO (08:03)
[2020-10-05] MEDS: GABAPENTIN 100 MG CAPSULE PO ×2 (08:03→12:34)
--- NOTE | 2020-10-05 10:22 | PM.PNGS ---
Progress Note: A&P Assessment and Plan (1) Pneumothorax, right: Code(s): J93.9 - Pneumothorax, unspecified Status: Acute Assessment and Plan: Suspected to be secondary to port placement. Chest x-ray this morning showed persistent small right apical pneumothorax without significant change. The right chest tube appeared to be partially retracted with one of two side port now seen in the chest wall. Patient stable on exam. Will clamp the chest tube for 2 hours and repeat the chest x-ray. If the right pneumothorax is unchanged on the repeat chest x-ray, then we will remove it. Encouraged IS use. (2) Port-A-Cath in place: Code(s): Z95.828 - Presence of other vascular implants and grafts Status: Acute Assessment and Plan: POD#1 - Incisions look good today. Leave open to air. (3) Adenocarcinoma of lung: Onset Date: ~07/2020 Qualifiers: Laterality: left Qualified Code(s): C34.92 - Malignant neoplasm of unspecified part of left bronchus or lung Code(s): C34.90 - Malignant neoplasm of unspecified part of unspecified bronchus or lung Status: Acute Additional Plan Discussed the plan of care with Dr. Villareal. Subjective Subjective Date/Time Seen: 10/05/20 10:22 Post Op day: 1 Patient reports: no new complaints Interval history: Patient with no complaints of shortness of breath this morning. Reports having some pain at the chest tube that she felt made her nauseated once overnight, but no vomiting. No other complaints. Review of Systems Review of Systems: All systems reviewed & are unremarkable except as noted in HPI and below Exam Const: General: cooperative, comfortable and no acute distress Orientation/consciousness: patient oriented x3 Resp: Effort & Inspection: normal respiratory effort and able to speak in complete sentences Auscultation: clear to auscultation bilaterally Other: Right-sided chest tube on water seasl with dressing clean and dry. No air leak. No obvious crepitus. Chest tube at 10 cm just outside the skin on my exam. Cardio: Rate: regular rate Rhythm: regular rhythm Skin: General skin exam: normal color Other: Right chest and neck incision clean and dry, with glue intact. Mild ecchymosis at chest incision. Neuro: General: moves all extremities and no focal motor deficits Extrem: General: normal to inspection, no clubbing, cyanosis or edema and no calf tenderness Psych: Mental Status: mental status grossly normal Insight: Good insight present (Psych) Judgement: Good judgement present (Psych) Objective Data Vital Signs Vital Signs: Vital Signs - 24 hr 10/04/20 10:48 10/04/20 13:40 10/04/20 14:00 Temperature 98.2 F Pulse Rate 76 62 62 Respiratory Rate 16 16 20 Blood Pressure 133/57 L 133/68 147/71 H Pulse Oximetry 100 100 100 10/04/20 14:25 10/04/20 14:30 10/04/20 14:35 Temperature Pulse Rate 73 75 Respiratory Rate 20 20 20 Blood Pressure 148/60 H 150/80 H 150/77 H Pulse Oximetry 84 L 95 10/04/20 15:00 10/04/20 15:30 10/04/20 17:00 Temperature Pulse Rate 72 80 63 Respiratory Rate 20 20 20 Blood Pressure 155/72 H 156/74 H Pulse Oximetry 96 92 100 10/04/20 17:30 10/04/20 18:10 10/04/20 18:25 Temperature 96.7 F L 98.5 F Pulse Rate 64 64 68 Respiratory Rate 20 17 20 Blood Pressure 181/79 H 167/75 H Pulse Oximetry 100 100 100 10/04/20 19:06 10/04/20 19:55 10/04/20 20:00 Temperature 98.5 F 97.7 F Pulse Rate 74 66 Respiratory Rate 20 18 Blood Pressure 167/72 H 173/71 H Pulse Oximetry 100 100 100 10/05/20 00:00 10/05/20 04:00 10/05/20 08:00 Temperature 97.8 F 97.9 F Pulse Rate 64 63 Respiratory Rate 16 16 Blood Pressure 148/65 H 152/63 H Pulse Oximetry 100 100 99 Intake/Output Intake/Output: Intake & Output 10/02/20 10/03/20 10/04/20 10/05/20 23:59 23:59 23:59 23:59 Intake Total 590 300 Output Total 450 Balance 590 -150 Meds/Results Medications: A
[2020-10-05 12:33] VITALS: BP 143/66; PULSE 64; RESP 20; TEMP 36.7; O2SAT 100
--- NOTE | 2020-10-05 13:26 | PCDIET ---
Dietitian Screen for BMI: 16.5 underweight. Spoke with patient today, she states to eating a regular diet at home. She does drink Ensure once daily at home, she refused diet supplements today. Oral intake has been 70-90% of meals. Breakfast meal today: fruit, eggs,toast and coffee. Recommend to liberalize diet order to regular diet. No further nutritional interventions.
[2020-10-05 14:00] VITALS: BP 129/63; PULSE 73; RESP 16; TEMP 36.8; O2SAT 98
--- NOTE | 2020-10-05 15:56 | PM.DS ---
DS: Admitting Diagnosis Admitting Diagnosis Admitting Diagnosis: Adenocarcinoma of the lung S/p port-a-cath placement Right pneumothorax HTN DS: Discharge Diagnosis Discharge Diagnosis (1) Pneumothorax, right: Code(s): J93.9 - Pneumothorax, unspecified Status: Acute (2) Port-A-Cath in place: Code(s): Z95.828 - Presence of other vascular implants and grafts Status: Acute Assessment and Plan: 10/04/20 US Guided Port-a-cath placement by Dr. Villareal (3) Adenocarcinoma of lung: Onset Date: ~07/2020 Qualifiers: Laterality: left Qualified Code(s): C34.92 - Malignant neoplasm of unspecified part of left bronchus or lung Code(s): C34.90 - Malignant neoplasm of unspecified part of unspecified bronchus or lung Status: Acute (4) Essential hypertension: Onset Date: Unknown Code(s): I10 - Essential (primary) hypertension Status: Chronic DS: Summary Hospital Course Reason for hospitalization: Sharmila Azevedo is a 75 year old female who was recently found to have a malignant neoplasm of the lower lobe left lung. Further treatment including chemotherapy is planned. Therefore she has been referred for placement of a Port-A-Cath. Pt has had a lung lobectomy on the left about 3 weeks ago and recovered well from that. She underwent an Ultrasound guided Port-a-cath placement by Dr. Villareal yesterday and was found to have a small right pneumothorax on the post procedure chest x-ray. She was placed on oxygen and monitored for the next few hours, when she then had a repeat chest x-ray. The repeat films showed an enlarging right pneumothorax with mediastinal shift to the left. At that time, it was decided to have a chest tube placed and admit the patient for observation. Hospital Course: Yesterday, a right-sided chest tube was placed by Dr. Villareal after the above events. This was initially placed to wall suction and she was on oxygen overnight. Incentive spirometry was ordered and the patient was instructed to use this. A repeat chest x-ray was taken this morning with the chest tube on water seal and showed persistent small right apical pneumothorax. Right chest drain has been partially retracted with one of two side port seen in the chest wall. The patient was evaluated and clinically stable. Oxygen was weaned off today and her O2 sats were stable on room air. I discussed the case with Dr. Villareal and we clamped the chest tube and repeated a chest x-ray 2 hours later. The repeat chest x-ray showed no change in the small right pneumothorax. At that time, Dr. Villareal and myself went to evaluate the patient. There was no air leak and she was clinically stable. No shortness of breath. We then removed the chest tube at the bedside and left on suture in place at the incision. A sterile occlusive dressing was placed immediately upon removal of the chest tube. The patient tolerated this well. I then went to reassess the patient a few hours after removal and she continued to be stable on room air and was tolerating activity without shortness of breath or complaints. Discussed again with Dr. Villareal, who is okay with discharge home and f/u in our office in 10 days. I discussed with the patient d/c instructions and reasons to return to the ER. Status at Discharge Functional status at discharge: independent ambulation Overall status at discharge: patient is progressing back to baseline Time Spent with Patient Time attestation: Total time spent providing and/or coordinating discharge services: Time spent: Greater than 30 minutes Exam Const: General: cooperative, comfortable and no acute distress Orientation/consciousness: patient oriented x3 Chest: Other: Right chest occlusive dressing clean and dry. Resp: Effort & Inspection: normal respiratory effort and able to speak in complete sentences Auscultation: clear to auscultation bilaterally Cardio: Rate: regular rate Rhythm: regular rhythm Skin: G
== END 2020-10-05 17:25 | disposition home health service (06) ==
LOC: ANHSURGERY 16:12 → ANH3MED 18:01
PROVIDERS: PCP Family Medicine; Visit Provider Surgery
PROC: (CPT 36561; principal; 2020-10-04 12:30)
DX: C34.32 Malignant neoplasm of lower lobe, left bronchus or lung (principal); J95.811 Postprocedural pneumothorax; Y83.8 Other surgical procedures as the cause of abnormal reaction of the patient, or of later complication, without mention of misadventure at the time of the procedure; I10 Essential (primary) hypertension; R93.1 Abnormal findings on diagnostic imaging of heart and coronary circulation; Z90.2 Acquired absence of lung [part of]; Z87.891 Personal history of nicotine dependence; Z79.01 Long term (current) use of anticoagulants; Z79.82 Long term (current) use of aspirin
CPT/HCPCS: 36561; 32551; 36415; 71045; 71046; 77001; 80053; 83735; 85025; 85610; 85730; 93005; A9270; C1729; C1788; J0690; J1644; J1885; J2704; J3010; J7030; J7120

== ENCOUNTER 2020-10-11 11:42 | Outpatient (CLI) | payer OTHER, MEDICARE, SELFPAY | END 2020-10-11 11:43 | disposition home or self-care (01) | LOC: ANHCOVIDVC 11:42 | PROVIDERS: PCP Family Medicine | DX: Z23 Encounter for immunization (principal) | CPT/HCPCS: 0001A; 91300 ==

== ENCOUNTER 2020-11-01 11:40 | Outpatient (CLI) | payer OTHER, MEDICARE, SELFPAY | END 2020-11-01 11:41 | disposition home or self-care (01) | LOC: ANHCOVIDVC 11:41 | PROVIDERS: PCP Family Medicine | DX: Z23 Encounter for immunization (principal) | CPT/HCPCS: 0002A; 91300 ==

== ENCOUNTER 2021-02-19 15:18 | Inpatient (IN) | payer OTHER, SELFPAY ==
[2021-02-19] VITALS (7 sets, daily range): BP systolic 144–188; BP diastolic 65–89; PULSE 70–96; RESP 18–20; TEMP 36.7–36.8; O2SAT 97–99; BMI 16.8
--- NOTE | ~2021-02-19 | XR_ITS ---
XR shoulder LT min 2V DATE: 02/19/2021 22:55 INDICATION: Left arm weakness TECHNIQUE: Portable 4 view examination COMPARISON: None FINDINGS: There is osteopenia. No fracture, dislocation, periosteal reaction or bone destruction or abnormal soft tissue calcificati on of the left shoulder. Right sided internal jugular central venous catheter is partially imaged. IMPRESSION: Osteopenia Reviewed, dictated and finalized at location A. IMPRESSION: Osteopenia
--- NOTE | ~2021-02-19 | XR_ITS ---
EXAMINATION: XR chest 1V portable EXAM DATE: 02/19/2021 17:46 INDICATION: Altered mental status, history lung cancer, lobectomy in August. TECHNIQUE: Portable AP frontal chest x-ray was obtained. Comparison is made to prior examination from 10/05/2020. FINDINGS: There is a right-sided Chemo-Port. Line is intact. Evidence of partial left pneumonectomy. No confluent consolidation, pneumothorax or pleural effusion suspected. Mild cardiomegaly. Hyperinfla tion. Mild scoliosis. IMPRESSION: 1. Mild cardiomegaly. 2. Hyperinflation. Reviewed, dictated and finalized at location A.
--- NOTE | ~2021-02-19 | CT_ITS ---
EXAMINATION: CTA brain carotid EXAM DATE: 02/19/2021 17:28 INDICATION: Confusion, altered mental status. Lung cancer. TECHNIQUE: Spiral CTA of the carotid arteries was performed with intravenous injection 100 cc of Om nipaque 350. Axial, coronal, sagittal reformatted images reviewed. Additional reformatted images cre ated on dedicated 3-D workstation. NASCET comparable standard used to assess the degree of arterial stenosis. Spiral CT angiogram cerebral arteries performed with the same intravenous injection of con trast. Source images of the brain CTA transferred to dedicated workstation for 3-D rotational image c reation. Coronal, sagittal maximum intensity pixel images also reviewed. The dose-length product (D LP) for this examination was 917.58 mGy-cm. The exposure was tailored according to patient size, an d iterative reconstruction (ASIR) was used as additional dose reduction technique. Correlation is mad e to noncontrast head CT earlier same date. FINDINGS: Mild right carotid bulb arteriosclerosis, 0% stenosis bilaterally. The vertebral arteries a re codominant. Fenestrated basilar artery, congenital variant. There is no carotid or vertebral basil ar arterial dissection or fibromuscular dysplasia. There are no cerebral artery aneurysms. There is s ymmetric cerebral artery arborization. The sagittal, transverse and sigmoid sinuses enhance normally, no venous sinus thrombosis. Internal cerebral veins also enhance normally. Incidental Findings: Punctate old left caudate head lacunar infarction. No enhancing brain metastatic lesions. Right-sided Chemo-Port. Moderate disc disease C5-6 and 6-7. IMPRESSION: 1. No acute carotid or intracranial findings. 2. Bilateral carotid 0% stenosis. Reviewed, dictated and finalized at location A.
--- NOTE | ~2021-02-19 | MR_ITS ---
EXAMINATION: MR brain/brain stem wo con EXAM DATE: 02/20/2021 11:08 INDICATION: Headache, alteration of awareness. TECHNIQUE: Magnetic resonance imaging (MRI) of the brain/brain stem obtained without contrast. Sagitt al T1, axial diffusion, gradient echo (T2*), T1, T2, FLAIR sequences obtained. Correlation is made t o CTA brain carotid exam from 02/19/2021. FINDINGS: There are no areas of restricted diffusion to suggest acute infarction. There is no acute hemorrhage seen on the T2*, a hemosiderin sensitive sequence. No intraparenchymal brain mass lesion. There is mild periventricular and subcortical T2/FLAIR signal hyperintensity, nonspecific but probab ly related to small vessel ischemic disease (microangiopathy). There is prominence of the sulci and ventricles related to cerebral atrophy. There are no extra-axial collections. Flow voids are seen in the cerebral arteries on the T2-weighted sequences consistent with their expected patency. The o rbits are unremarkable. Soft tissue is unremarkable. IMPRESSION: 1. No acute intracranial findings. 2. Mild microangiopathy. Reviewed, dictated and finalized at location A.
--- NOTE | ~2021-02-19 | CT_ITS ---
EXAMINATION: CT brain wo con EXAM DATE: 02/19/2021 17:02 INDICATION: Confusion, altered mental status. Lung cancer. TECHNIQUE: Spiral CT of the head was performed without contrast. Axial, coronal and sagittal images were reviewed. The dose-length product (DLP) for this examination was 605.33 mGy-cm. The exposure w as tailored according to patient size, and iterative reconstruction (ASIR) was used as additional dos e reduction technique. There is no prior study for comparison. FINDINGS: There is no acute intraparenchymal hemorrhage. No evidence of intraparenchymal brain mass lesion. No evidence of acute infarction. Please note that initial head CT has limited sensitivity f or small or acute infarctions. Punctate old left caudate head lacunar infarction. There is mild per iventricular and subcortical hypodensity, nonspecific but probably related to small vessel ischemic d isease. There is mild prominence of the sulci and ventricles related to cerebral atrophy. There i s intracranial carotid arteriosclerosis. There are no extra-axial collections. There is no mass eff ect or midline shift. The orbits are unremarkable. Soft tissue is unremarkable. The visualized sin uses and mastoid air cells are well aerated. IMPRESSION: 1. No acute intracranial findings. 2. Chronic age related findings. 3. Punctate old left caudate head lacunar infarction. Reviewed, dictated and finalized at location A.
--- NOTE | 2021-02-19 15:27 | ECG_ITS ---
Measurements Intervals Howard Rate: 70 P: 4 IA: 139 QRS: 84 QRSD: 85 T: 68 QT: 388 QTc: 420 Interpretive Statements SINUS RHYTHM INCOMPLETE RIGHT BUNDLE BRANCH BLOCK BASELINE ARTIFACT- I, II, III, AVR, AVL, AVF, V1-V6 BORDERLINE ECG Electronically Signed On 02-19-2021 17:08:02 CDT by Abdoulaye Amaro D.O.
[2021-02-19 15:45] LABS: Basophils Percent Auto 0.2 % (0.2-1.2); Hematocrit 35.9 % (37.0-47.0); Hemoglobin 11.5 g/dL (12.0-15.0); Immature Granulocyte Absolute 0.05 K/mm3 (0.00-0.031); Immature Granulocyte Percent A 0.4 % (0-0.5); Lymphocytes Absolute Auto 0.78 K/mm3 (0.9-3.2); Lymphocytes Percent Auto 6.4 % (18.3-44.2); Mean Corpuscular Hemoglobin 30.3 pg (26-34); Mean Corpuscular Volume 94.5 fl (80-100); Mean Platelet Volume 9.4 fl (7.4-10.4); Monocytes Absolute Auto 0.3 K/mm3 (0.1-0.6); Monocytes Percent Auto 2.5 % (2.6-8.5); Neutrophils Absolute Auto 11.1 K/mm3 (1.3-6.7); Neutrophils Percent Auto 90.5 % (45.5-73.1); Platelet Count Result 315 k/mm3 (150-375); Red Cell Distribution Width 17.1 % (11.5-14.5); White Blood Count 12.2 K/mm3 (4.5-10.0)
[2021-02-19 15:49] LABS: Add Urine Microscopic? YES; Appearance Urine Clear (Clear); Bilirubin Urine Negative (Negative); Blood Urine 1+ (Negative); Color Urine Yellow (Yellow); Glucose Urine UA Negative (Negative); Ketones Urine Trace mg/dL (Negative); Leukocyte Esterase Ur Negative LEU/UL (Negative); Nitrate Urine Negative (Negative); Protein Urine Negative (Negative); Specific Grav Ur 1.016 (1.001-1.035); Squamous Epithelial Cell Urine Rare /hpf (Few); Urobilinogen Urine Negative mg/dL (<2.0); WBC Urine 0-3 /hpf
[2021-02-19 16:41] LABS: Alanine Aminotransferase 23 U/L (4-35); Albumin Level 4.7 g/dL (3.5-5.1); Alkaline Phosphatase 65 U/L (38-126); Anion Gap 8 mmol/L (8-16); Aspartate Amino Transferase 37 U/L (14-36); Bilirubin,Total 0.5 mg/dL (0.2-1.3); Blood Urea Nitrogen 16 mg/dL (7-17); Calcium 9.6 mg/dL (8.4-10.2); Carbon Dioxide 27 mmol/L (22-30); Chloride 96 mmol/L (98-107); Estimated CRCL calculation 48 ml/min; Estimated Glomerular Filt Rate > 60; Glucose 122 mg/dL (65-110); Potassium 4.6 mmol/L (3.4-5.0); Sodium 131 mmol/L (137-145)
--- NOTE | 2021-02-19 16:54 | ED.AMS ---
HPI - Altered Mental Status General Chief Complaint: Altered Mental Status Stated Complaint: ams/confusion Time Seen by Provider: 02/19/21 16:41 History of Present Illness HPI narrative: 75 yo female w/ h/o lung cancer s/p chemotherapy presents to the ED for AMS. Her daughter was not able to get ahold of her for a few hours this morning. When she went to check on her she found that her home was a mess and she was acting strangely. She was able to answer specific question appropriately, but she could not give detailed descriptions or follow commands well. No recent illness. This is a new problem. Related Data Home Medications Medication Instructions Recorded Confirmed calcium carbonate [Calcium 600] 1,200 mg PO DAILY 05/21/20 02/19/21 acetaminophen 325 mg capsule 500 mg PO Q6H PRN cap 10/08/20 02/19/21 ondansetron 8 mg PO Q8H PRN 11/16/20 02/19/21 cyanocobalamin (vitamin B-12) 1,000 mcg PO DAILY 12/28/20 02/19/21 ferrous sulfate 325 mg (65 mg 325 mg PO DAILY 02/18/21 02/19/21 iron) tablet perindopril erbumine 8 mg tablet 8 mg PO BID tablet 02/18/21 02/19/21 metoprolol succinate 50 mg PO DAILY 02/19/21 02/19/21 Allergies Allergy/AdvReac Type Severity Reaction Status Date / Time No Known Allergies Allergy Verified 02/19/21 21:32 Review of Systems Review of Systems: ROS unobtainable: Yes unobtainable due to mental status PMFSH Past Medical History Medical History Cancer of left lung Status post left lower lobectomy and chemotherapy. Chronic anemia Diastolic dysfunction Essential hypertension Paroxysmal supraventricular tachycardia Transient atrial fibrillation Post left lower lobectomy. Surgical History Surgical History History of colonoscopy with polypectomy (~07/2018) Dr Ritter - repeat in 5 years History of lobectomy of lung (~08/2020) Left lower lobe. History of lung biopsy (~05/2020) Port-A-Cath in place Family History Family History Mother Hypertension Cerebrovascular accident Sibling Asthma Social History Social History Social History: Surrogate decision maker: Sabrina Moon, daughter. Code status: Full code. Smoking packs per day: 1 Smoking cigarettes per day: 20.0 Years smoked: 57 Smoking pack-years: 57.00 Smoking status: Former smoker Tobacco type: cigarettes Second hand tobacco smoke exposure: Yes Alcohol intake: current Drinks per week: 4 Substance use: never Substance use type: does not use Additional living arrangements comments: The patient lives in her own home in [place]. Her a couple of months ago from lung cancer. Additional occupation/education comments: Former educator. Sexual Orientation (if Verbalized by the Patient): Straight or Heterosexual Spiritual care concerns: No Exam Const: General: no acute distress Nutritional Appearance: thin Orientation/consciousness: patient oriented x3 Other: somnolent HENMT: Head: normal to inspection Eyes: Pupils: Equal, round and reactive pupils present Resp: Effort & Inspection: normal respiratory effort Auscultation: clear to auscultation bilaterally Cardio: Rate: regular rate Rhythm: regular rhythm GI: GI Palp: Yes Soft to palpation and No Tenderness to palpation present (GI) Skin: General skin exam: normal color Neuro: General: patient oriented x3 and moves all extremities Cranial nerves: Yes facial symmetry and Yes Midline tongue present Cognition (Neuro): abnormal cognition Speech: normal speech Other: Left sided neglect. 5/5 strength throughout. Extrem: General: normal to inspection Course Vital Signs Vital signs: Vital Signs Temperature 36.7 C 02/19/21 15:17 Pulse Rate 73 02/19/21 15:17 Respiratory Rate 18 02/19/21 15:17 Bloo
[2021-02-19] MEDS: SODIUM CHLORIDE 0.9% IV 500 ML 999 ML IV CONT (17:13)
--- NOTE | 2021-02-19 19:30 | PM.IMHP ---
H&P: HPI History of Present Illness Date/Time: 02/19/21 19:30 Chief Complaint: Altered mental status. Narrative: This is a 75-year-old female with hypertension and lung cancer who presented to the emergency department earlier this afternoon via EMS from home for evaluation of altered mental status. The patient is alert and oriented to self but is not able to give a good history as to what occurred today, at times she seems more lucid than others although she does not offer information she will answer questions briefly. Her daughter Sabrina is at bedside and she gives additional information, with the patient's permission. Sabrina began calling her mother around noon today and when she did not pick pulling machine tender repeat phone call, Sabrina went to check on her. She entered the residence through the garage door and the patient was noted to be standing in the kitchen and she seemed a bit disoriented. In fact the kitchen was in disarray and it looks like the patient had spilled milk and coffee and tried to clean it up the was unsuccessful. A broken coffee mug and remote controls were also found scattered on the floor. The patient acknowledged her daughter but proceeded to walk down the morillo to her bedroom where she lay down. The only history Sabrina could get from her is that she awoke from sleep at approximately 03:00 with a headache. She was still wearing a T-shirt and a robe and was not dressed for the day though she had makeup on. Workup in the emergency department was unrevealing though a punctate old left caudate head lacunar infarction was noted on brain CT. She seems to have left-sided errol-neglect but at times was noted to reach out and grab her left forearm with her right hand intentionally however the left arm remains flaccid when I lift it for her. With further questioning it sounds as though she had an episode of paroxysmal atrial fibrillation after her left lower lobectomy in August 2020. Patient does indicate to me that she will on occasion feel her heart racing or skipping beats but that is not often. She was prescribed Eliquis after that surgery though she tells me she never took it. Her only complaint is of a mild headache. She denies vertigo, auditory and visual changes, paresthesias, and dysphagia. Review of Systems Review of Systems: Narrative: A complete review of systems was attempted but is limited given the patient's clinical condition as detailed above and I am not certain how accurate of a historian she is at this time. Except as documented HPI all other systems were negative. [facility] Past Medical History Medical History (Updated 02/19/21 @ 22:04 by Enedina Key PA-C) Cancer of left lung Status post left lower lobectomy and chemotherapy. Chronic anemia Diastolic dysfunction Essential hypertension Paroxysmal supraventricular tachycardia Transient atrial fibrillation Post left lower lobectomy. Surgical History Surgical History (Updated 02/19/21 @ 21:51 by Enedina Key PA-C) History of colonoscopy with polypectomy (~07/2018) Dr Ritter - repeat in 5 years History of lobectomy of lung (~08/2020) Left lower lobe. History of lung biopsy (~05/2020) Port-A-Cath in place Family History Family History Mother Hypertension Cerebrovascular accident Sibling Asthma Social History Social History (Updated 02/19/21 @ 22:13 by Enedina Key PA-C) Social History: Surrogate decision maker: Sabrina Moon, daughter. Code status: Full code. Smoking packs per day: 1 Smoking cigarettes per day: 20.0 Years smoked: 57 Smoking pack-years: 57.00 Smoking status: Former smoker Tobacco type: cigarettes Second hand tobacco smoke exposure: Yes Alcohol intake: current Drinks per week: 4 Substance use: never Substance use type: does not use Additional living arrangements comments: The patient lives in her own home in [place]. Her kaela
--- NOTE | 2021-02-19 20:17 | ADMGEN ---
This patient, Sharmila Azevedo, was admitted to Medical Room 343-01. Patient/family oriented to hospital policies and general routines including ID bracelet, bed and alarms, visiting hours, pain management, procedures, bathroom and other care routines, personal items, smoking policy, room service/diet, and visiting hours. Information on how to activate the Rapid Response Team has been discussed. Patient/Family are encouraged to report perceived risks to care and to ask questions if they do not understand what they are told or what they should do.
[2021-02-19] MEDS: SODIUM CHLORIDE 0.9% IV 1,000 ML 75 ML IV CONT (20:40)
[2021-02-19 22:52] LABS: Anion Gap 10 mmol/L (8-16); Blood Urea Nitrogen 12 mg/dL (7-17); Calcium 9.2 mg/dL (8.4-10.2); Carbon Dioxide 25 mmol/L (22-30); Chloride 93 mmol/L (98-107); Creatine Kinase 72 U/L (30-135); Estimated CRCL calculation 46 ml/min; Estimated Glomerular Filt Rate > 60; Glucose 119 mg/dL (65-110); Potassium 3.8 mmol/L (3.4-5.0); Sodium 128 mmol/L (137-145)
[2021-02-19] MEDS: lisinopriL 20 MG TABLET PO (23:03)
[2021-02-19] MEDS: ASPIRIN 81 MG CHEWABLE TABLET 324 MG PO (23:04)
[2021-02-19 23:51] LABS: Thyroid Stimulating Hormone Reflex 0.192 uIU/mL (0.465-4.68)
[2021-02-20] VITALS (10 sets, daily range): BP systolic 132–135; BP diastolic 59–71; PULSE 56–76; RESP 16; TEMP 36.1–36.9; O2SAT 97–98
[2021-02-20 00:13] LABS: Folic Acid > 20.0 ng/mL (2.76->20)
[2021-02-20 00:55] LABS: Free T4 Free Thyroxine Reflex 1.05 ng/dL (0.78-2.19)
[2021-02-20 04:35] LABS: Total Triiodothyronine (T3) 0.79 NG/ML (0.97-1.69)
[2021-02-20 06:26] LABS: Hematocrit 31.7 % (37.0-47.0); Hemoglobin 10.4 g/dL (12.0-15.0); Mean Corpuscular HGB Conc 32.8 g/dl (32-36); Mean Corpuscular Hemoglobin 30.3 pg (26-34); Mean Corpuscular Volume 92.4 fl (80-100); Mean Platelet Volume 9.4 fl (7.4-10.4); Platelet Count Result 282 k/mm3 (150-375); Red Blood Count 3.43 M/mm3 (4.2-5.4); Red Cell Distribution Width 17.2 % (11.5-14.5); White Blood Count 12.5 K/mm3 (4.5-10.0)
[2021-02-20 06:38] LABS: Anion Gap 9 mmol/L (8-16); Blood Urea Nitrogen 15 mg/dL (7-17); Calcium 9.2 mg/dL (8.4-10.2); Carbon Dioxide 26 mmol/L (22-30); Chloride 94 mmol/L (98-107); Cholesterol 167 mg/dL (0-200); Estimated CRCL calculation 47 ml/min; Estimated Glomerular Filt Rate > 60; Glucose 103 mg/dL (65-110); HDL Direct 78 mg/dL; Magnesium 1.7 mg/dL (1.6-2.3); Potassium 3.7 mmol/L (3.4-5.0); Sodium 129 mmol/L (137-145); Triglycerides 64 mg/dL (<150)
[2021-02-20 06:48] LABS: LDL Cholesterol Direct 60 mg/dL
[2021-02-20] MEDS: CYANOCOBALAMIN 1,000 MCG TABLET 1000 MCG PO (08:31)
[2021-02-20] MEDS: FERROUS SULFATE 324 MG TABLET PO (08:31)
[2021-02-20] MEDS: CALCIUM CARBONATE (OSCAL) 500 MG TABLET 1000 MG PO (08:31)
[2021-02-20] MEDS: ASPIRIN 81 MG CHEWABLE TABLET PO (08:31)
[2021-02-20] MEDS: METOPROLOL SUCCINATE EXT REL 50 MG TABCR PO (08:32)
[2021-02-20] MEDS: lisinopriL 20 MG TABLET PO ×2 (08:32→20:06)
--- NOTE | 2021-02-20 11:19 | PM.IMPN ---
Progress Note: A&P Assessment and Plan (1) Altered mental status: Code(s): R41.82 - Altered mental status, unspecified Status: Acute Assessment and Plan: 02/20 patient has remained clinically stable poor historian, spoke speech therapy concern for swallow patient will need modified swallow study once more cognitive able, patient is scheduled to have MRI later today will follow up, there is a concerned patient has proximal atrial fibrillation and has been not taking anticoagulation, EKG done today does not show any arrhythmias, will follow-up on MRI, will continue aspirin, patient be seen by Neurology and further recommendation to follow. (2) Stroke-like symptoms: Code(s): R29.90 - Unspecified symptoms and signs involving the nervous system Status: Acute Assessment and Plan: CT scan of the head and CTA of the head and neck did not show any acute pathology or stenosis, will follow up MRI (3) Essential hypertension: Code(s): I10 - Essential (primary) hypertension Status: Chronic Assessment and Plan: will continue home regimen and permissively monitor blood pressure (4) Chronic anemia: Code(s): D64.9 - Anemia, unspecified Status: Acute Assessment and Plan: will continue to (5) Hyponatremia: Code(s): E87.1 - Hypo-osmolality and hyponatremia Status: Acute Assessment and Plan: will continue levothyroxine Additional Plan The patient presents today with altered mental status as detailed in HPI. She is exhibiting symptoms concerning for stroke to include left upper extremity weakness with apparent neglect. Unfortunately she is not a candidate for tPA given unknown last known well time. CT of the head and neck and brain CT did not show any acute findings. She will be monitored on telemetry overnight and she should probably be discharged home on an event monitor given her history of transient atrial fibrillation after her lobectomy in August. Brain MRI and echocardiogram have been ordered for further evaluation. Continue neurologic checks q.4 hours. Initiate fall precautions. PT/OT/ST consulted. Dr. Turner has been consulted and his input is appreciated. Blood pressures were reviewed and they are not at goal though I doubt the patient took her medications this morning. Her antihypertensives will be resumed are blood pressures will be monitored closely. Allow permissive hypertension due to possible stroke. Hemoglobin and hematocrit are stable on review of previous labs in her iron will be continued. She does not appear dehydrated thus will discontinue IV fluids I will simply repeat sodium level in a.m. Check TSH, osmolalities, and urine creatinine and sodium. Subjective Date/time seen: 02/20/21 11:19 Initial assessment and planing from H&P:The patient presents today with altered mental status as detailed in HPI. She is exhibiting symptoms concerning for stroke to include left upper extremity weakness with apparent neglect. Unfortunately she is not a candidate for tPA given unknown last known well time. CT of the head and neck and brain CT did not show any acute findings. She will be monitored on telemetry overnight and she should probably be discharged home on an event monitor given her history of transient atrial fibrillation after her lobectomy in August. Brain MRI and echocardiogram have been ordered for further evaluation. Continue neurologic checks q.4 hours. Initiate fall precautions. PT/OT/ST consulted. Dr. Turner has been consulted and his input is appreciated. Blood pressures were reviewed and they are not at goal though I doubt the patient took her medications this morning. Her antihypertensives will be resumed are blood pressures will be monitored closely. Allow permissive hypertension due to possible stroke. Hemoglobin and hematocrit are stable on review of previous labs in her iron will be continued. She does not appear dehydrated thus will disc
--- NOTE | 2021-02-20 11:27 | PCPTNOTE ---
Attempted to see this morning - unable to arouse pt. Will try again later today.
--- NOTE | 2021-02-20 11:53 | PCSTNOTE ---
Bedside swallow evaluation completed. Please see ST evaluation for details and recommendations.
--- NOTE | 2021-02-20 11:56 | PCOTNOTE ---
Attempted for occupational therapy at this time, unable to arouse patient at this time. will follow and attempt at later time.
[2021-02-20 19:23] LABS: Add Urine Microscopic? YES; Appearance Urine Cloudy (Clear); Bacteria Urine Trace /hpf; Bilirubin Urine Negative (Negative); Blood Urine 2+ (Negative); Color Urine Yellow (Yellow); Glucose Urine UA Negative (Negative); Ketones Urine Trace mg/dL (Negative); Leukocyte Esterase Ur 1+ LEU/UL (Negative); Nitrate Urine Negative (Negative); Protein Urine 1+ mg/dL (Negative); Specific Grav Ur 1.021 (1.001-1.035); Squamous Epithelial Cell Urine Few /hpf (Few); Urobilinogen Urine Negative mg/dL (<2.0); WBC Urine 16-20 /hpf
[2021-02-21] VITALS (10 sets, daily range): BP systolic 115–144; BP diastolic 61–65; PULSE 55–69; RESP 16–17; TEMP 35.9–36.8; O2SAT 98–100; BMI 17.0
--- NOTE | 2021-02-21 | ECHO_ITS ---
Patient Info Name: Sharmila Azevedo Age: 75 years : 1945 Gender: Female Ht: 66 in Wt: 104 lbs BSA: 1.47 m2 HR: 69 bpm BP: 144 / 65 mmHg Exam Date: 02/21/2021 11:06 AM Exam Location: [facility] Patient Status: Inpatient Admit Date: 02/20/2021 Staff Ordering Physician: Enedina Key PA-C Roll Shop Supervisor: Cristoabl Murcia RDCS, RT Attending Provider: Justyna Hollins DO Referring Physician: Shahid VILLASEÑOR; Exam Type: CA echo doppler color flow Study Info Indications R27.9 - Unspecified lack of coordination I11.0 - Hypertensive heart disease with heart failure Complete two-dimensional, color flow and Doppler transthoracic echocardiogram is performed. Strain analysis performed. Summary 1. Complete two-dimensional, color flow and Doppler transthoracic echocardiogram is performed. 2. Left ventricular chamber dimension is normal. 3. Left ventricular systolic function is normal, estimated at 65-70%. 4. There is mildly increased left ventricular wall thickness. 5. The left ventricular diastolic function is grade I diastolic dysfunction. 6. E/e' 19 is elevated. 7. Global longitudinal strain is normal at -17.1%. 8. Left atrial chamber dimension is mildly enlarged. 9. The mitral valve has moderately calcified annulus. 10. There is mild mitral valve regurgitation. 11. There is moderate tricuspid valve regurgitation. 12. Mild pulmonary hypertension, estimated pulmonary arterial systolic pressure is 41 mmHg. 13. There is trace pulmonic regurgitation. 14. Small atheroma in anterior aortic root. Left Ventricle E/e' 19 is elevated. Global longitudinal strain is normal at -17.1%. Left ventricular chamber dimension is normal. Left ventricular systolic function is normal, estimated at 65-70%. There is mildly increased left ventricular wall thickness. The left ventricular diastolic function is grade I diastolic dysfunction. Right Ventricle Right ventricular systolic function is normal and with normal TAPSE 2.0 cm. Right ventricular chamber dimension is normal. Left Atria Left atrial chamber dimension is mildly enlarged. Right Atria Right atrial chamber dimension is normal. Aortic Valve The aortic valve is trileaflet. There is no aortic valve stenosis. There is no aortic valve regurgitation. Pulmonic Valve There is trace pulmonic regurgitation. Mitral Valve The mitral valve has moderately calcified annulus. There is no mitral valve stenosis. There is mild mitral valve regurgitation. Tricuspid Valve There is moderate tricuspid valve regurgitation. Mild pulmonary hypertension, estimated pulmonary arterial systolic pressure is 41 mmHg. Pericardium/Pleural There is no pericardial effusion. Inferior Vena Cava Normal inferior vena cava with >50% collapse upon inspiration consistent with normal right atrial pressure, 5 mmHg. Aorta Small atheroma in anterior aortic root. The aortic root size at the sinus of Valsalva is normal. Left Ventricular Outflow Tract Name Value Normal LVOT 2D LVOT Diameter 2.0 cm LVOT Doppler LVOT Peak Gradient 5 mmHg L
[2021-02-21] MEDS: ASPIRIN 81 MG CHEWABLE TABLET PO (08:06)
[2021-02-21] MEDS: lisinopriL 20 MG TABLET PO ×2 (08:06→21:02)
[2021-02-21] MEDS: FERROUS SULFATE 324 MG TABLET PO (08:06)
[2021-02-21] MEDS: METOPROLOL SUCCINATE EXT REL 50 MG TABCR PO (08:06)
[2021-02-21] MEDS: CYANOCOBALAMIN 1,000 MCG TABLET 1000 MCG PO (08:06)
[2021-02-21 09:16] LABS: Hematocrit 36.8 % (37.0-47.0); Hemoglobin 12.2 g/dL (12.0-15.0); Mean Corpuscular HGB Conc 33.2 g/dl (32-36); Mean Corpuscular Hemoglobin 30.7 pg (26-34); Mean Corpuscular Volume 92.7 fl (80-100); Mean Platelet Volume 9.3 fl (7.4-10.4); Platelet Count Result 293 k/mm3 (150-375); Red Blood Count 3.97 M/mm3 (4.2-5.4); Red Cell Distribution Width 17.1 % (11.5-14.5); White Blood Count 9.4 K/mm3 (4.5-10.0)
[2021-02-21 09:28] LABS: Albumin Level 4.3 g/dL (3.5-5.1); Anion Gap 8 mmol/L (8-16); Blood Urea Nitrogen 19 mg/dL (7-17); Calcium 9.3 mg/dL (8.4-10.2); Carbon Dioxide 27 mmol/L (22-30); Chloride 96 mmol/L (98-107); Estimated CRCL calculation 54 ml/min; Estimated Glomerular Filt Rate > 60; Glucose 106 mg/dL (65-110); Phosphorus 3.6 mg/dL (2.5-4.5); Sodium 131 mmol/L (137-145)
--- NOTE | 2021-02-21 10:21 | WPDNEURCNPN ---
Assessment and Plan Additional Plan generalized deconditioning with cognitive deficit with history of paroxysmal atrial fibrillation and no anticoagulation therapy could very well be TIA and will benefit from the therapy along with the anticoagulation Consult date: 02/21/21 Time Seen: 09:30 HPI: Sharmila Azevedo is a 75 year old female admitted to the hospital for the complaints of change in mental status in addition to ongoing history of 1. Hypertension 2. Carcinoma of the lung she was brought to the ER by the EMS from home and was found to be intermittently lucid as admission available from the daughter who enter the house through the garage door and found her mother standing in the kitchen disoriented in time and place broken coughing ericka and remote controls were also disarray she did acknowledge her daughter but laid down in the bedroom she mention to her daughter that she woke up around 3:00 p.m. 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 Chronic anemia Diastolic dysfunction Essential hypertension Paroxysmal supraventricular tachycardia Transient atrial fibrillation Post left lower lobectomy. Surgical History Surgical History History of colonoscopy with polypectomy (~07/2018) Dr Ritter - repeat in 5 years History of lobectomy of lung (~08/2020) Left lower lobe. History of lung biopsy (~05/2020) Port-A-Cath in place Family History Family History Mother Hypertension Cerebrovascular accident Sibling Asthma Social History Social History Social History: Surrogate decision maker: Sabrina Moon, daughter. Code status: Full code. Smoking packs per day: 1 Smoking cigarettes per day: 20.0 Years smoked: 57 Smoking pack-years: 57.00 Smoking status: Former smoker Tobacco type: cigarettes Second hand tobacco smoke exposure: Yes Alcohol intake: current Drinks per week: 4 Substance use: never Substance use type: does not use Additional living arrangements comments: The patient lives in her own home in [place]. Her a couple of months ago from lung cancer. Additional occupation/education comments: Former educator. Sexual Orientation (if Verbalized by the Patient): Straight or Heterosexual Meds Home Medications and Allergies Home Medications Medication Instructions Recorded Confirmed Type aspirin 81 mg chewable tablet 81 mg PO DAILY #30 tablet 06/04/19 02/19/21 Rx alendronate 70 mg tablet 70 mg PO WEEKLY #14 tablet 03/30/20 02/19/21 Rx calcium carbonate [Calcium 600] 1,200 mg PO DAILY 05/21/20 02/19/21 History acetaminophen 325 mg capsule 500 mg PO Q6H PRN cap 10/08/20 02/19/21 History ondansetron 8 mg PO Q8H PRN 11/16/20 02/19/21 History cyanocobalamin (vitamin B-12) 1,000 mcg PO DAILY 12/28/20 02/19/21 History ferrous sulfate 325 mg (65 mg 325 mg PO DAILY 02/18/21 02/19/21 History iron) tablet perindopril erbumine 8 mg tablet 8 mg PO BID tablet 02/18/21 02/19/21 History metoprolol succinate 50 mg PO DAILY 02/19/21 02/19/21 History Allergies Allergy/AdvReac Type Severity Reaction Status Date / Time No Known Allergies Allergy Verif
--- NOTE | 2021-02-21 11:53 | PCNSR ---
On 02/21/21, the student,Marilu Hodge, provided care and [facility] on [facility]. I have reviewed the student's documentation and agree with the findings.
--- NOTE | 2021-02-21 14:18 | PM.IMPN ---
Progress Note: A&P Assessment and Plan (1) Altered mental status: Code(s): R41.82 - Altered mental status, unspecified Status: Acute Assessment and Plan: 02/21/21 14:18 02/20 patient has remained clinically stable poor historian, spoke speech therapy concern for swallow patient will need modified swallow study once more cognitive able, patient is scheduled to have MRI later today will follow up, there is a concerned patient has proximal atrial fibrillation and has been not taking anticoagulation, EKG done today does not show any arrhythmias, will follow-up on MRI, will continue aspirin, patient be seen by Neurology and further recommendation to follow. 02/21 today patient is little more alert and communicates today however still somewhat confused we do not know the baseline, CT scan of the head and MRI of the brain are negative for any acute injury, patient was seen by speech able to swallow, patient has urinary retention but denies any dysuria or frequency of urination, patient is a poor historian, her UA showed elevated white counts, we have started the patient empirically on Rocephin, suspect patient confusion may be related to UTI, will continue to monitor will have a PT OT evaluate the patient and further recommendation to follow. (2) Stroke-like symptoms: Code(s): R29.90 - Unspecified symptoms and signs involving the nervous system Status: Acute Assessment and Plan: CT scan of the head and CTA of the head and neck did not show any acute pathology or stenosis, will follow up MRI (3) Essential hypertension: Code(s): I10 - Essential (primary) hypertension Status: Chronic Assessment and Plan: will continue home regimen and permissively monitor blood pressure (4) Chronic anemia: Code(s): D64.9 - Anemia, unspecified Status: Acute Assessment and Plan: will continue to (5) Hyponatremia: Code(s): E87.1 - Hypo-osmolality and hyponatremia Status: Acute Assessment and Plan: will continue levothyroxine Additional Plan The patient presents today with altered mental status as detailed in HPI. She is exhibiting symptoms concerning for stroke to include left upper extremity weakness with apparent neglect. Unfortunately she is not a candidate for tPA given unknown last known well time. CT of the head and neck and brain CT did not show any acute findings. She will be monitored on telemetry overnight and she should probably be discharged home on an event monitor given her history of transient atrial fibrillation after her lobectomy in August. Brain MRI and echocardiogram have been ordered for further evaluation. Continue neurologic checks q.4 hours. Initiate fall precautions. PT/OT/ST consulted. Dr. [place] has been consulted and his input is appreciated. Blood pressures were reviewed and they are not at goal though I doubt the patient took her medications this morning. Her antihypertensives will be resumed are blood pressures will be monitored closely. Allow permissive hypertension due to possible stroke. Hemoglobin and hematocrit are stable on review of previous labs in her iron will be continued. She does not appear dehydrated thus will discontinue IV fluids I will simply repeat sodium level in a.m. Check TSH, osmolalities, and urine creatinine and sodium. Subjective Date/time seen: 02/21/21 14:18 02/20 patient has remained clinically stable poor historian, spoke speech therapy concern for swallow patient will need modified swallow study once more cognitive able, patient is scheduled to have MRI later today will follow up, there is a concerned patient has proximal atrial fibrillation and has been not taking anticoagulation, EKG done today does not show any arrhythmias, will follow-up on MRI, will continue aspirin, patient be seen by Neurology and further recommendation to follow. 02/21 today patient is little more alert and communicates today however st
[2021-02-22] VITALS (11 sets, daily range): BP systolic 110–144; BP diastolic 60–68; PULSE 53–65; RESP 16–18; TEMP 35.7–36.6; O2SAT 96–100
[2021-02-22] MEDS: CALCIUM CARBONATE (OSCAL) 500 MG TABLET 1000 MG PO (08:25)
[2021-02-22] MEDS: lisinopriL 20 MG TABLET PO ×2 (08:25→21:16)
[2021-02-22] MEDS: METOPROLOL SUCCINATE EXT REL 50 MG TABCR PO (08:25)
[2021-02-22] MEDS: CYANOCOBALAMIN 1,000 MCG TABLET 1000 MCG PO (08:25)
[2021-02-22] MEDS: ASPIRIN 81 MG CHEWABLE TABLET PO (08:25)
[2021-02-22] MEDS: FERROUS SULFATE 324 MG TABLET PO (08:25)
--- NOTE | 2021-02-22 15:08 | PM.IMPN ---
Progress Note: A&P Assessment and Plan (1) Altered mental status: Code(s): R41.82 - Altered mental status, unspecified Status: Acute Assessment and Plan: 02/21/21 14:18 02/20 patient has remained clinically stable poor historian, spoke speech therapy concern for swallow patient will need modified swallow study once more cognitive able, patient is scheduled to have MRI later today will follow up, there is a concerned patient has proximal atrial fibrillation and has been not taking anticoagulation, EKG done today does not show any arrhythmias, will follow-up on MRI, will continue aspirin, patient be seen by Neurology and further recommendation to follow. 02/21 today patient is little more alert and communicates today however still somewhat confused we do not know the baseline, CT scan of the head and MRI of the brain are negative for any acute injury, patient was seen by speech able to swallow, patient has urinary retention but denies any dysuria or frequency of urination, patient is a poor historian, her UA showed elevated white counts, we have started the patient empirically on Rocephin, suspect patient confusion may be related to UTI, will continue to monitor will have a PT OT evaluate the patient and further recommendation to follow. 02/22 more alert and communicative however confusion persist. Imaging studies with CT and MRI has been negative. She does have evidence of urinary tract infection with leukocytosis was empirically started on Rocephin. Urine culture growing Enterococcus along with the gram-negative bacilli. Will continue IV Rocephin and await urine culture to finalize. We will also add vancomycin IV to cover for Enterococcus. (2) Stroke-like symptoms: Code(s): R29.90 - Unspecified symptoms and signs involving the nervous system Status: Acute Assessment and Plan: CT scan of the head and CTA of the head and neck did not show any acute pathology or stenosis, MRI negative for acute stroke (3) Essential hypertension: Code(s): I10 - Essential (primary) hypertension Status: Chronic Assessment and Plan: will continue home regimen and permissively monitor blood pressure (4) Chronic anemia: Code(s): D64.9 - Anemia, unspecified Status: Acute Assessment and Plan: will continue to (5) Hyponatremia: Code(s): E87.1 - Hypo-osmolality and hyponatremia Status: Acute Assessment and Plan: will continue levothyroxine Hyponatremia improving Subjective Date/time seen: 02/22/21 15:08 Interval history: No overnight events.Feeling better. She went for a walk on the hallways today. No fever chills shortness of breath chest pain eating okay Review of Systems Review of Systems: Narrative: - CONSTITUTIONAL: Denies weight loss, fever and chills. - HEENT: Denies changes in vision and hearing - RESPIRATORY: Denies SOB and cough. - CV: Denies palpitations and CP - GI: Denies abdominal pain, nausea, vomiting and diarrhea. - : Denies dysuria and urinary frequency. - MSK: Denies myalgia and joint pain. - SKIN: Denies rash and pruritus. - NEUROLOGICAL: Denies headache and syncope. - PSYCHIATRIC: Denies recent changes in mood. Denies anxiety and depression. All systems reviewed & are unremarkable except as noted in HPI and below Exam Narrative: Exam Narrative: Patient is comfortable, NAD HEENT: eyes are clear and none icteric LUNGS:CTA HEART: RR S1S2 ABD: BS+, Soft and nontender Lower extremities: no edema SKIN: nonjaundiced Neuro: unable to exam patient is not cooperative. Objective Data Vital Signs Vital Signs: Vital Signs - 24 hr 02/21/21 16:00 02/21/21 19:33 02/21/21 20:00 Temperature 97.6 F Pulse Rate 63 62 62 Respiratory Rate 17 Blood Pressure 115/61 Pulse Oximetry 100 02/22/21 00:00 02/22/21 04:00 02/22/21 04:20 Temperature 97.8 F Pulse Rate 55 L 53 L 62 Respiratory Rate 18
[2021-02-23] VITALS (8 sets, daily range): BP systolic 125–150; BP diastolic 66–76; PULSE 52–106; RESP 16–17; TEMP 35.7–36.6; O2SAT 100
[2021-02-23 06:06] LABS: Basophils Percent Auto 0.6 % (0.2-1.2); Eosinophils Absolute Auto 0.1 K/mm3 (0-0.3); Eosinophils Percent Auto 1.2 % (0-4.4); Hematocrit 38.6 % (37.0-47.0); Hemoglobin 12.3 g/dL (12.0-15.0); Immature Granulocyte Absolute 0.04 K/mm3 (0.00-0.031); Immature Granulocyte Percent A 0.6 % (0-0.5); Lymphocytes Absolute Auto 1.31 K/mm3 (0.9-3.2); Mean Corpuscular HGB Conc 31.9 g/dl (32-36); Mean Corpuscular Hemoglobin 30.4 pg (26-34); Mean Corpuscular Volume 95.5 fl (80-100); Mean Platelet Volume 9.5 fl (7.4-10.4); Monocytes Absolute Auto 0.7 K/mm3 (0.1-0.6); Monocytes Percent Auto 10.6 % (2.6-8.5); Neutrophils Absolute Auto 4.7 K/mm3 (1.3-6.7); Platelet Count Result 278 k/mm3 (150-375); Red Blood Count 4.04 M/mm3 (4.2-5.4); Red Cell Distribution Width 16.3 % (11.5-14.5); White Blood Count 6.9 K/mm3 (4.5-10.0)
[2021-02-23 06:09] LABS: Anion Gap 6 mmol/L (8-16); Blood Urea Nitrogen 23 mg/dL (7-17); Calcium 9.8 mg/dL (8.4-10.2); Carbon Dioxide 27 mmol/L (22-30); Chloride 99 mmol/L (98-107); Estimated CRCL calculation 42 ml/min; Estimated Glomerular Filt Rate > 60; Glucose 76 mg/dL (65-110); Potassium 4.8 mmol/L (3.4-5.0); Sodium 132 mmol/L (137-145)
[2021-02-23] MEDS: FERROUS SULFATE 324 MG TABLET PO (08:03)
[2021-02-23] MEDS: ASPIRIN 81 MG CHEWABLE TABLET PO (08:03)
[2021-02-23] MEDS: lisinopriL 20 MG TABLET PO (08:04)
[2021-02-23] MEDS: METOPROLOL SUCCINATE EXT REL 50 MG TABCR PO (08:04)
[2021-02-23] MEDS: CYANOCOBALAMIN 1,000 MCG TABLET 1000 MCG PO (08:04)
[2021-02-23] MEDS: CALCIUM CARBONATE (OSCAL) 500 MG TABLET 1000 MG PO (08:04)
--- NOTE | 2021-02-23 09:54 | PM.IMPN ---
Progress Note: A&P Assessment and Plan (1) Altered mental status: Code(s): R41.82 - Altered mental status, unspecified Status: Acute Assessment and Plan: 02/21/21 14:18 02/20 patient has remained clinically stable poor historian, spoke speech therapy concern for swallow patient will need modified swallow study once more cognitive able, patient is scheduled to have MRI later today will follow up, there is a concerned patient has proximal atrial fibrillation and has been not taking anticoagulation, EKG done today does not show any arrhythmias, will follow-up on MRI, will continue aspirin, patient be seen by Neurology and further recommendation to follow. 02/21 today patient is little more alert and communicates today however still somewhat confused we do not know the baseline, CT scan of the head and MRI of the brain are negative for any acute injury, patient was seen by speech able to swallow, patient has urinary retention but denies any dysuria or frequency of urination, patient is a poor historian, her UA showed elevated white counts, we have started the patient empirically on Rocephin, suspect patient confusion may be related to UTI, will continue to monitor will have a PT OT evaluate the patient and further recommendation to follow. 02/22 more alert and communicative however confusion persist. Imaging studies with CT and MRI has been negative. She does have evidence of urinary tract infection with leukocytosis was empirically started on Rocephin. Urine culture growing Enterococcus along with the gram-negative bacilli. Will continue IV Rocephin and await urine culture to finalize. We will also add vancomycin IV to cover for Enterococcus. 02/23 more alert and communicative. Mild confusion persist. Stroke workup has a neck negative likely related to underlying UTI urine culture showing Gram-negative bacilli and Enterococcus. Gram-negative bacilli yet to be identified. vancomycin and Rocephin will await final urine culture. Physical therapy and occupational therapy evaluated spoke with physical therapy plans for home health arrangements at discharge. Family is going to stay with her for next few days at the time of discharge (2) Stroke-like symptoms: Code(s): R29.90 - Unspecified symptoms and signs involving the nervous system Status: Acute Assessment and Plan: CT scan of the head and CTA of the head and neck did not show any acute pathology or stenosis. MRI negative for acute stroke (3) Essential hypertension: Code(s): I10 - Essential (primary) hypertension Status: Chronic Assessment and Plan: will continue home regimen and permissively monitor blood pressure (4) Chronic anemia: Code(s): D64.9 - Anemia, unspecified Status: Acute Assessment and Plan: will continue to (5) Hyponatremia: Code(s): E87.1 - Hypo-osmolality and hyponatremia Status: Acute Assessment and Plan: will continue levothyroxine Hyponatremia improving Subjective Date/time seen: 02/23/21 09:54 Interval history: no overnight events. Feeling better. She work with therapy today which I discussed with. She has improved significantly since the day of admission physical fagan. She still has mild confusion on and off. She denies any shortness of breath or chest pain no fever chills Review of Systems Review of Systems: All systems reviewed & are unremarkable except as noted in HPI and below Exam Narrative: Exam Narrative: Patient is comfortable, NAD HEENT: eyes are clear and none icteric LUNGS:CTA HEART: RR S1S2 ABD: BS+, Soft and nontender Lower extremities: no edema SKIN: nonjaundiced Neuro: alert and oriented x3, no gross motor deficits Objective Data Vital Signs Vital Signs: Vital Signs - 24 hr 02/22/21 12:00 02/22/21 15:11 02/22/21 16:00 Temperature 96.2 F L Pulse Rate 63 61 58 L Respiratory Rate 16 Blood Pressure 110/61 Puls
--- NOTE | 2021-02-23 11:04 | PCNFU ---
Nutrition Follow-Up Complete: Inadequate oral food intake related to left neglect as evidence by consuming 50% of meals and a BMI of 17.1. Goal: Meet estimated nutritional needs. Patient is progressing towards goal. We will continue current goal. Pt current nutrition is Heart Healthy with Ensure compact BID Last recorded weight is 48.3 kg-stable. Bowel Motility:+BM reported-02/22 Labs Reviewed:BUN 23, Na 132 Meds Noted:Toprol, Oscal, Prinvil,Rocephin. Additional Notes: Nutrition follow up. Patient eating 100% of health healthy diet. Patient requested Ensure drinks to be made into shake with vanilla ice cream. Request sent to diet office. Agree with diet orders. Monitoring: Follow up in 5 days.
--- NOTE | 2021-02-23 15:08 | PM.DS ---
DS: Admitting Diagnosis Admitting Diagnosis Confusion DS: Discharge Diagnosis Discharge Diagnosis (1) Hyponatremia: Code(s): E87.1 - Hypo-osmolality and hyponatremia Status: Acute (2) Chronic anemia: Code(s): D64.9 - Anemia, unspecified Status: Acute (3) Stroke-like symptoms: Code(s): R29.90 - Unspecified symptoms and signs involving the nervous system Status: Acute (4) Altered mental status: Code(s): R41.82 - Altered mental status, unspecified Status: Acute (5) Urinary tract infection: Code(s): N39.0 - Urinary tract infection, site not specified Status: Acute DS: Summary Hospital Course Hospital Course: This is a 75-year-old female with hypertension and lung cancer who presented to the emergency department via EMS from home for evaluation of altered mental status. her daughter Sabrina began calling her mother around noon and when she did not greens picker repeat phone call, Sabrina went to check on her. She entered the residence through the garage door and the patient was noted to be standing in the kitchen and she seemed a bit disoriented. In fact the kitchen was in disarray and it looks like the patient had spilled milk and coffee and tried to clean it up the was unsuccessful. A broken coffee mug and remote controls were also found scattered on the floor. The patient acknowledged her daughter but proceeded to walk down the [place] to her bedroom where she lay down. The only history Sabrina could get from her is that she awoke from sleep at approximately 03:00 with a headache. She was still wearing a T-shirt and a robe and was not dressed for the day though she had makeup on. Workup in the emergency department was unrevealing though a punctate old left caudate head lacunar infarction was noted on brain CT. She seems to have left-sided errol-neglect but at times was noted to reach out and grab her left forearm with her right hand intentionally however the left arm remains flaccid. With further questioning it sounds as though she had an episode of paroxysmal atrial fibrillation after her left lower lobectomy in August 2020. Patient does indicate to me that she will on occasion feel her heart racing or skipping beats but that is not often. She was prescribed Eliquis after that surgery though she never took it. Her only complaint is of a mild headache. She denies vertigo, auditory and visual changes, paresthesias, and dysphagia. she was evaluated for possible stroke on admission along with neurology consultation. She had a CTA head and neck along with MRI brain which came back negative for acute stroke. She was also showing evidence of urinary tract infection on admission and was started on Rocephin. She improved significantly with IV antibiotic therapy has considered her mental status to be due to urine tract infection. She also had hyponatremia on admission which could be 1 of the contributory factors as well. Her urine culture grew Enterococcus and E coli for which initially we added vancomycin empirically however since Enterococcus was ampicillin sensitive it was decided to discharge her arm Augmentin which covers both the bacteria. She worked with physical therapy and occupational therapy during the hospital stay and improved significantly and suggested home health to continue at the time of discharge which was arranged. Discussed with the daughter at the bedside at the time of discharge. She will follow-up with primary care doctor in 1 week for continued follow-up evaluation. Status at Discharge Functional status at discharge: independent ambulation Overall status at discharge: patient is progressing back to baseline Time Spent with Patient Time attestation: Total time spent providing and/or coordinating discharge services: 45 minutes Exam Narrative: Patient is comfortable, NAD HEENT: eyes are clear and none icteric LUNGS:CTA HEART: RR S1S2 ABD: BS+, Soft and nontender Lower
[2021-02-25 07:01] LABS: Osmolality, Urine 526 mOsm/kg (50-1200)
== END 2021-02-23 18:15 | disposition home health service (06) | DRG 690 ==
LOC: ANHED 16:41 → ANH3MED 20:06
PROVIDERS: Family Medicine; Physician Assistant; Admitting Provider Internal Medicine; Emergency Provider Emergency Medicine; PCP Family Medicine; Visit Provider Internal Medicine
DX: N39.0 Urinary tract infection, site not specified (principal); E87.1 Hypo-osmolality and hyponatremia; F05 Delirium due to known physiological condition; Z85.118 Personal history of other malignant neoplasm of bronchus and lung; Z92.21 Personal history of antineoplastic chemotherapy; R29.90 Unspecified symptoms and signs involving the nervous system; I10 Essential (primary) hypertension; Z87.891 Personal history of nicotine dependence; F03.90 Unspecified dementia, unspecified severity, without behavioral disturbance, psychotic disturbance, mood disturbance, and anxiety; I48.0 Paroxysmal atrial fibrillation; D64.9 Anemia, unspecified; R33.9 Retention of urine, unspecified; B95.2 Enterococcus as the cause of diseases classified elsewhere; Z91.14 Patient's other noncompliance with medication regimen; B96.20 Unspecified Escherichia coli [E. coli] as the cause of diseases classified elsewhere
CPT/HCPCS: 36415; 51701; 70450; 70496; 70498; 70551; 71045; 73030; 80048; 80053; 80061; 80069; 81001; 82550; 82570; 82607; 82746; 83735; 83930; 83935; 84439; 84443; 84480; 85025; 85027; 87077; 87086; 87088; 87186; 92507; 92523; 92610; 93005; 93306; 96361; 96365; 96367; 97110; 97116; 97129; 97130; 97162; 97165; 97530; 97535; 99285; A9270; G0378; J0696; J3370; J7030; J7040; Q9967

== ENCOUNTER 2021-02-28 08:43 | Outpatient (CLI) | payer OTHER, SELFPAY ==
--- NOTE | ~2021-02-28 | CT_ITS ---
EXAMINATION: CT diagnostic chest w con DATE: 02/28/2021 09:16 INDICATION: Left lung cancer TECHNIQUE: Transaxial computed tomographic images of the chest were obtained after the administration of 75 cc of Omnipaque 350 intravenous contrast. The dose-length product (DLP) was 134.19 mGy-cm. Ite rative reconstruction was used. COMPARISON: 07/06/2020 FINDINGS: There are changes of interval left lower lobectomy. There is a small left pleural effusion. There is scarring of the lung apices. There is a 3 mm nodule of the right lower lobe on image 62. Th ere is mild emphysema. There is no pneumothorax. A right internal jugular Port-A-Cath ends with its t ip in the distal superior vena cava. The heart size is normal. There are no pathologically enlarged t horacic lymph nodes. There is levoscoliosis and moderate spondylosis of the thoracic spine. IMPRESSION: 1. Changes of interval left lower lobectomy with small left pleural effusion now present. 2. 3 mm nodule of the right lower lobe, indeterminate. Attention on follow-up examination is recommen ded. Reviewed, dictated and finalized at location A. IMPRESSION: 1. Changes of interval left lower lobectomy with small left pleural effusion no w present. 2. 3 mm nodule of the right lower lobe, indeterminate. Attention on follow-up e xamination is recommended.
== END 2021-02-28 08:44 | disposition home or self-care (01) ==
LOC: ANHIMG 08:44
PROVIDERS: PCP Family Medicine; Visit Provider Internal Medicine Hematology & Oncology
DX: C34.92 Malignant neoplasm of unspecified part of left bronchus or lung (principal)
CPT/HCPCS: 71260; Q9967

== ENCOUNTER → 2021-05-19 16:19 | Outpatient (CLI) | payer OTHER, SELFPAY ==
--- NOTE | ~2021-05-19 | MM_ITS ---
EXAMINATION: MM screening desi BI w dean HISTORY: Screening mammogram TECHNIQUE: Craniocaudal and mediolateral oblique 3-D tomosynthesis images were obtained and synthetic 2-D images were generated. CAD analysis was submitted and interpreted. COMPARISON: 07/25/2019, 11/15/2017 bilateral digital screening mammogram examinations BREAST PARENCHYMAL COMPOSITION: The breasts are heterogeneously dense, which may obscure small masses . FINDINGS: There is a biopsy marker on the left; history of prior benign left breast stereotactic biop sy. Occasional benign calcifications are noted bilaterally. There is no evidence of suspicious mass, calcification, or architectural distortion to suggest malignancy in either breast. There has been no suspicious interval change. IMPRESSION: 1. No mammographic evidence of malignancy. 2. Recommend routine screening mammography in one year. BI-RADS Category 2: Benign finding(s). Reviewed, dictated and finalized at location A.
== END ==
PROVIDERS: PCP Family Medicine; Visit Provider Nurse Practitioner Family
DX: Z12.31 Encounter for screening mammogram for malignant neoplasm of breast (principal)
CPT/HCPCS: 77063; 77067

== ENCOUNTER 2021-05-30 07:59 | Outpatient (CLI) | payer OTHER, SELFPAY ==
--- NOTE | ~2021-05-30 | CT_ITS ---
EXAMINATION: CT diagnostic chest w con DATE: 05/30/2021 08:38 INDICATION: Non-small cell cancer of the left lung TECHNIQUE: Transaxial computed tomographic images of the chest were obtained after the administration of 75 cc of Omnipaque 350 intravenous contrast. The dose-length product (DLP) was 140.62 mGy-cm. Ite rative reconstruction was used. COMPARISON: 02/28/2021, 07/18/2020, 11/15/2017 FINDINGS: There are changes of left lower lobectomy. A small left pleural effusion persists without s ignificant change. There is moderate emphysema. A 3 mm nodule of the right lower lobe is stable, cons istent with old granulomatous disease. There is scarring of the lung apices. No new focal airspace op acities are identified. There is no pneumothorax. A right internal jugular Port-A-Cath ends with its tip in the distal superior vena cava. No pathologically enlarged thoracic lymph nodes are identified. The heart size is normal. IMPRESSION: 1. Stable changes of left lower lobectomy and small chronic left pleural effusion. 2. Stable 3 mm nodule of the right lower lobe, consistent with old granulomatous disease. Reviewed, dictated and finalized at location B. IMPRESSION: 1. Stable changes of left lower lobectomy and small chronic left pleural effusi on. 2. Stable 3 mm nodule of the right lower lobe, consistent with old granulomatou s disease.
[2021-05-30 08:28] LABS: Estimated Glomerular Filt Rate > 60
== END 2021-05-30 08:00 | disposition home or self-care (01) ==
PROVIDERS: PCP Family Medicine; Visit Provider Internal Medicine Hematology & Oncology
DX: C34.92 Malignant neoplasm of unspecified part of left bronchus or lung (principal)
CPT/HCPCS: 71260; Q9967

== ENCOUNTER 2021-09-27 07:58 | Outpatient (CLI) | payer OTHER, SELFPAY ==
--- NOTE | ~2021-09-27 | CT_ITS ---
EXAMINATION: CT diagnostic chest w con EXAM DATE: 09/27/2021 08:47 INDICATION: Non-Small Cell Cancer Of Left Lung TECHNIQUE: Spiral CT of the chest following intravenous injection of 75 mL Omnipaque 350. Axial, cor onal and sagittal images of the chest were reviewed. Coronal maximum intensity pixel images of chest reviewed. The dose-length product (DLP) for this examination was 132.19 mGy-cm. The exposure was t ailored according to patient size (auto mA exposure control), and iterative reconstruction (ASIR) was used as additional dose reduction technique. Comparison is made to prior examination from 05/30/2021. FINDINGS: Mild emphysema. Surgical changes from left lower lobectomy appear stable. No new or suspic ious pulmonary nodules. There are no pleural or pericardial effusions. Tracheobronchial tree is pat ent. There is no mediastinal, hilar or axillary lymphadenopathy. There is no pneumothorax. Hear t normal in size. Upper abdomen is unremarkable. There is thoracic spondylosis without osteoblast ic or osteolytic lesions identified. IMPRESSION: Stable left lung surgical changes. Mild emphysema. Reviewed, dictated and finalized at location G. RUMENT PERSON
[2021-09-27 08:35] LABS: Estimated Glomerular Filt Rate > 60
== END 2021-09-27 07:59 | disposition home or self-care (01) ==
LOC: ANHIMG 08:03
PROVIDERS: PCP Family Medicine; Visit Provider Internal Medicine Hematology & Oncology
DX: C34.92 Malignant neoplasm of unspecified part of left bronchus or lung (principal); J43.9 Emphysema, unspecified
CPT/HCPCS: 71260; Q9967

== ENCOUNTER 2021-12-01 11:33 | Emergency (ER) | payer OTHER, SELFPAY ==
--- NOTE | ~2021-12-01 | XR_ITS ---
EXAMINATION: XR chest 2V DATE: 12/01/2021 12:30 INDICATION: Cough TECHNIQUE: PA and lateral views of the chest are obtained. COMPARISON: 02/19/2021 FINDINGS: The lungs are hyperinflated but free of acute opacities. A right internal jugular Port-A-Ca th ends with its tip in the distal superior vena cava. There is no pleural effusion or pneumothorax. The cardiomediastinal silhouette is normal. There is moderate thoracic spondylosis. IMPRESSION: 1. No acute cardiopulmonary abnormality. Reviewed, dictated and finalized at location B.
[2021-12-01 11:42] VITALS: BP 127/61; PULSE 81; RESP 16; TEMP 37.4; O2SAT 97
--- NOTE | 2021-12-01 11:53 | ED.URI ---
HPI - URI/Sore Throat General Chief Complaint: Upper Respiratory Infection Stated Complaint: cough, congestion, fever, fatigued Time Seen by Provider: 12/01/21 11:54 Source: patient, RN notes reviewed and old records reviewed Mode of arrival: ambulatory Limitations: no limitations History of Present Illness HPI Narrative: 76-year-old female who presents to [facility] with complaints of fever up to 101F,body aches, chest congestion with more shortness of breath than usual and no energy since Sunday. Patient reports that she has had Covid vaccinations and Booster and also Flu shot this season. Patient does have history of left lower lobe lobectomy in August 2020 with chemotherapy. Patient reports that she has not taken any medication OTC for her symptoms. MD elicited complaint: fever, cough and other (fatigue) Pertinent past history: other (lobectomy for cancer) Onset (ago): day(s) (3 days) Consistency: constant Related Data Home Medications Medication Instructions Recorded Confirmed calcium carbonate [Calcium 600] 1,200 mg PO DAILY 05/21/20 09/13/21 acetaminophen 325 mg capsule 500 mg PO Q6H PRN cap 10/08/20 09/13/21 cyanocobalamin (vitamin B-12) 1,000 mcg PO DAILY 12/28/20 09/13/21 ferrous sulfate 325 mg (65 mg 325 mg PO DAILY 02/18/21 09/13/21 iron) tablet Bacillus coagulans 250 million cell PO 03/07/21 09/13/21 cell chewable tablet cholecalciferol (vitamin D3) 50 50 mcg PO DAILY 03/07/21 09/13/21 mcg (2,000 unit) capsule Allergies Allergy/AdvReac Type Severity Reaction Status Date / Time No Known Allergies Allergy Verified 12/01/21 11:42 Review of Systems Review of Systems: CONSTITUTIONAL: positive for fever, chills, or sweats. EYES: Denies visual changes, redness, or discharge. ENT: Positive for rhinorrhea, congestion, no sore throat, or otalgia. CARDIOVASCULAR: Denies chest pain, palpitations, or edema. RESPIRATORY: Positive for cough denies any acute dyspnea, states does have some mild dyspnea with activity. GASTROINTESTINAL: Denies abdominal pain, nausea, vomiting, or diarrhea. GENITOURINARY: Denies dysuria or hematuria. SKIN: Denies rash or itching. MUSCULOSKELETAL: Denies back pain, joint pain, Positive for body aches. NEUROLOGIC: Denies headache, numbness, or weakness. PSYCHIATRIC: Denies anxiety or depression. All systems reviewed & are unremarkable except as noted in HPI and below PMFSH Past Medical History Medical History Cancer of left lung Status post left lower lobectomy and chemotherapy. Chronic anemia Diastolic dysfunction Essential hypertension History of skin cancer Osteopenia Paroxysmal supraventricular tachycardia Transient atrial fibrillation Post left lower lobectomy. Surgical History Surgical History History of colonoscopy with polypectomy (~07/2018) Dr Ritter - repeat in 5 years History of lobectomy of lung (~08/2020) Left lower lobe. History of lung biopsy (~05/2020) Port-A-Cath in place Family History Family History Mother Hypertension Cerebrovascular accident Sibling Asthma Social History Social History Social History: Surrogate decision maker: Sabrina Moon, daughter. Code status: Full code. Smoking packs per day: 1 Smoking cigarettes per day: 20.0 Years smoked: 57 Smoking pack-years: 57.00 Smoking status: Never smoker Tobacco type: cigarettes Second hand tobacco smoke exposure: Yes Smoking end date: 09/13/20 Alcohol intake: current Drinks per week: 4 Substance use: never Substance use type: does not use Additional living arrangements comments: The patient lives in her own home in [place]. Her 11/2020 from lung cancer. Additional occupation/education comments: Former educa
== END 2021-12-01 12:56 | disposition home or self-care (01) ==
PROVIDERS: Emergency Provider Registered Nurse; PCP Family Medicine
DX: J10.1 Influenza due to other identified influenza virus with other respiratory manifestations (principal); I10 Essential (primary) hypertension; F17.210 Nicotine dependence, cigarettes, uncomplicated; Z85.118 Personal history of other malignant neoplasm of bronchus and lung
CPT/HCPCS: 71046; 87804; 99213; G0463

== ENCOUNTER 2021-12-17 16:18 | Emergency (ER) | payer OTHER, SELFPAY ==
[2021-12-17 16:23] VITALS: BP 172/78; PULSE 68; RESP 16; TEMP 36.2; O2SAT 99
--- NOTE | 2021-12-17 17:00 | ED.GENADULT ---
HPI - General Adult General Chief complaint: Dental/Oral Stated complaint: tooth infection Source: patient Mode of arrival: ambulatory Limitations: no limitations History of Present Illness HPI narrative: Pt presents for evaluation of right sided facial swelling for the past two hours. She states she was sitting at her computer when she felt irritation on right side of her face. She noted swelling in affected area shortly thereafter. She had similar symptoms in the past and was told that it originated from a dental problem. She states that she lost a tooth on the right upper side in the past. No fever, chills, nausea, vomiting, difficulty breathing/swallowing. In fact, she denies any associated pain. She called her dentist and was unable to initially reach them. However, she received a call back upon her arrival here and was told that she would likely need abx. Related Data Home Medications Medication Instructions Recorded Confirmed calcium carbonate [Calcium 600] 1,200 mg PO DAILY 05/21/20 12/17/21 acetaminophen 325 mg capsule 500 mg PO Q6H PRN cap 10/08/20 12/17/21 cyanocobalamin (vitamin B-12) 1,000 mcg PO DAILY 12/28/20 12/17/21 ferrous sulfate 325 mg (65 mg 325 mg PO DAILY 02/18/21 12/17/21 iron) tablet Bacillus coagulans 250 million 250 cell PO DAILY 03/07/21 12/17/21 cell chewable tablet cholecalciferol (vitamin D3) 50 50 mcg PO DAILY 03/07/21 12/17/21 mcg (2,000 unit) capsule Allergies Allergy/AdvReac Type Severity Reaction Status Date / Time No Known Allergies Allergy Verified 12/17/21 16:26 Review of Systems Review of Systems: CONSTITUTIONAL: Denies fever, chills, or sweats. EYES: Denies visual changes, redness, or discharge. ENT: Reports right sided facial swelling. Denies rhinorrhea, congestion, sore throat, or otalgia. CARDIOVASCULAR: Denies chest pain, palpitations, or edema. RESPIRATORY: Denies cough or dyspnea. GASTROINTESTINAL: Denies abdominal pain, nausea, vomiting, or diarrhea. GENITOURINARY: Denies dysuria or hematuria. SKIN: Denies rash or itching. MUSCULOSKELETAL: Denies back pain, joint pain, or myalgia. NEUROLOGIC: Denies headache, numbness, dizziness, or weakness. PSYCHIATRIC: Denies anxiety or depression. PMFSH Past Medical History Medical History Cancer of left lung Status post left lower lobectomy and chemotherapy. Chronic anemia Diastolic dysfunction Essential hypertension History of skin cancer Osteopenia Paroxysmal supraventricular tachycardia Transient atrial fibrillation Post left lower lobectomy. Surgical History Surgical History History of colonoscopy with polypectomy (~07/2018) Dr Ritter - repeat in 5 years History of lobectomy of lung (~08/2020) Left lower lobe. History of lung biopsy (~05/2020) Port-A-Cath in place Family History Family History Mother Hypertension Cerebrovascular accident Sibling Asthma Social History Social History Social History: Surrogate decision maker: Sabrina Moon, daughter. Code status: Full code. Smoking packs per day: 1 Smoking cigarettes per day: 20.0 Years smoked: 57 Smoking pack-years: 57.00 Smoking status: Never smoker Tobacco type: cigarettes Second hand tobacco smoke exposure: Yes Smoking end date: 09/13/20 Alcohol intake: current Drinks per week: 4 Substance use: never Substance use type: does not use Additional living arrangements comments: The patient lives in her own home in [place]. Her 11/2020 from lung cancer. Additional occupation/education comments: Former educator. Sexual Orientation (if Verbalized by the Patient): Straight or Heterosexual Spiritual care concerns: No Exam Narrative:
== END 2021-12-17 17:00 | disposition home or self-care (01) ==
PROVIDERS: Emergency Provider Nurse Practitioner; PCP Family Medicine
DX: K08.89 Other specified disorders of teeth and supporting structures (principal); K08.409 Partial loss of teeth, unspecified cause, unspecified class; R22.0 Localized swelling, mass and lump, head; I10 Essential (primary) hypertension; M85.80 Other specified disorders of bone density and structure, unspecified site; I48.91 Unspecified atrial fibrillation; Z85.118 Personal history of other malignant neoplasm of bronchus and lung; Z85.828 Personal history of other malignant neoplasm of skin; Z90.2 Acquired absence of lung [part of]
CPT/HCPCS: 99213; G0463

== ENCOUNTER 2022-06-09 08:02 | Outpatient (CLI) | payer OTHER, SELFPAY ==
--- NOTE | ~2022-06-09 | CT_ITS ---
EXAMINATION: CT diagnostic chest w con DATE: 06/09/2022 08:33 INDICATION: History of non-small cell lung cancer TECHNIQUE: Transaxial computed tomographic images of the chest were obtained after the administration of 75 cc of Omnipaque 350 intravenous contrast. The dose-length product (DLP) was 09/27/2021 mGy-cm. I terative reconstruction was used. COMPARISON: 09/27/2021 FINDINGS: There is mild emphysema. Changes of partial left pneumonectomy are again noted. There is a stable 2 mm nodule in the right lower lobe. There is a small chronic left pleural effusion. No pneumo thorax is identified. A right internal jugular Port-A-Cath ends with its tip in the distal superior v nirav cava. No pathologically enlarged thoracic lymph nodes are identified. The heart size is normal. T here is thoracic levoscoliosis and moderate spondylosis. IMPRESSION: 1. Stable changes of partial left pneumonectomy without evidence of residual or recurrent disease. Reviewed, dictated and finalized at location B. MACY CUST[employer]ER CARE SPECIALIST
[2022-06-09 08:31] LABS: Estimated Glomerular Filt Rate > 60
== END 2022-06-09 08:03 | disposition home or self-care (01) ==
PROVIDERS: PCP Family Medicine; Visit Provider Internal Medicine Hematology & Oncology
DX: C34.92 Malignant neoplasm of unspecified part of left bronchus or lung (principal)
CPT/HCPCS: 71260; Q9967

== ENCOUNTER → 2022-09-08 13:20 | Outpatient (CLI) | payer OTHER, SELFPAY ==
--- NOTE | ~2022-09-08 | DEXA_ITS ---
Bone Density Report Name: BETZY MART Age: 77 Sex: Female Ethnicity: White Date of : 1945 Indication: osteopenia; monitoring treatment; height loss; postmenopausal Referring Provider: Tiffany Padilla Study: Bone densitometry was performed. Exam Date: September 08, 2022 Accession number: [id number] Bone Density: Region BMD T-score Z-score Classification AP Spine (L1-L4) 0.847 -1.8 0.6 Osteopenia Femoral Neck (Left) 0.642 -1.9 0.2 Osteopenia Total Hip (Left) 0.652 -2.4 -0.6 Osteopenia Femoral Neck (Right) 0.666 -1.6 0.4 Osteopenia Total Hip (Right) 0.669 -2.2 -0.5 Osteopenia Total Hip Mean 0.661 -2.3 -0.6 Osteopenia World Health Organization criteria for BMD impression classify patients as: Normal (T-score at or above -1.0), Osteopenia (T-score between -1.0 and -2.5), or Osteoporosis (T-score at or below -2.5). 10-year Fracture Risk: FRAX not reported because: Treated for osteoporosis Previous Exams: Region Exam Age BMD T-score BMD Change BMD Change Date g/cm2 vs Baseline vs Previous AP Spine(L1-L4) 09/08/2022 77 0.847 -1.8 0.085* 0.018 07/25/2019 74 0.828 -2.0 0.067* 0.067* 09/29/2016 71 0.762 -2.6 Total Hip(Left) 09/08/2022 77 0.652 -2.4 -0.006 0.002 07/25/2019 74 0.650 -2.4 -0.008 -0.008 09/29/2016 71 0.658 -2.3 Total Hip(Right) 09/08/2022 77 0.669 -2.2 0.013 0.024 07/25/2019 74 0.644 -2.4 -0.011 -0.011 09/29/2016 71 0.656 -2.3 *Denotes significance at 95% confidence level, LSC for AP Spine = 0.022 g/cm2, LSC for Total Hip = 0.027 g/cm2 Clinical Information Provided by Patient: Smokes Is being treated for osteoporosis Has used the following medications: Fosamax (i.e. alendronate), Vitamin D, Calcium Patient maximum height was 66.75 Menopause Age: 52 No regular weight bearing exercise Drinks caffeinated beverages Onset of menses at age 16 Number of children 2 Impression: The patient has low bone mass, based on the Left Total Hip T-score. The patient has risk factors, including: smoking. No significant bone loss was observed. Discussion: PATIENT UNDER TREATMENT WITH NO SIGNIFICANT BMD LOSS SINCE LAST EXAM. In an untreated patient, BMD typically declines with age. A lack of decline or gain is usually a sign that treatment is efficacious and fracture risk is reduced. It is important to ask
--- NOTE | ~2022-09-08 | MM_ITS ---
EXAMINATION: MM screening desi BI w dean HISTORY: Screening mammogram TECHNIQUE: Craniocaudal and mediolateral oblique 3-D tomosynthesis images were obtained and synthetic 2-D images were generated. CAD analysis was submitted and interpreted. COMPARISON: 05/19/2021, 07/25/2019, 11/15/2017 bilateral screening mammogram examinations BREAST PARENCHYMAL COMPOSITION: The breasts are heterogeneously dense, which may obscure small masses . FINDINGS: Possible 2.5 mm mass in posterior mid to upper outer left breast (MLO Tomosynthesis image 1 ). Diagnostic left mammogram and left breast ultrasound examination are recommended. Otherwise there is no evidence of suspicious mass, calcification, or architectural distortion to sugg est malignancy in either breast. There has been no other suspicious interval change. IMPRESSION: 1. Possible new 2.5 mm left breast mass, posterior mid to upper outer breast 2. Diagnostic left mammogram and left breast ultrasound examination are recommended BI-RADS Category 0: Incomplete: Needs additional imaging evaluation. Reviewed, dictated and finalized at location A. D MOLDER IMPRESSION: 1. Possible new 2.5 mm left breast mass, posterior mid to upper outer breast 2. Diagnostic left mammogram and left breast ultrasound examination are recomme nded BI-RADS Category 0: Incomplete: Needs additional imaging evaluation.
== END ==
PROVIDERS: PCP Family Medicine; Visit Provider Nurse Practitioner Family
DX: Z12.31 Encounter for screening mammogram for malignant neoplasm of breast (principal); Z78.0 Asymptomatic menopausal state; R92.8 Other abnormal and inconclusive findings on diagnostic imaging of breast; M85.88 Other specified disorders of bone density and structure, other site; M85.852 Other specified disorders of bone density and structure, left thigh; M85.851 Other specified disorders of bone density and structure, right thigh
CPT/HCPCS: 77063; 77067; 77080

== ENCOUNTER → 2022-09-26 09:25 | Outpatient (CLI) | payer OTHER, SELFPAY ==
--- NOTE | ~2022-09-26 | MMUS_ITS ---
EXAMINATION: MM diagnostic desi LT w dean, US breast LT limited HISTORY: Possible 2.5 mm mass reported in posterior mid to upper outer left breast on September 08 screening mammogram TECHNIQUE: Additional 3-D tomosynthesis images of left breast were performed and synthetic 2-D images were generated. CAD analysis was submitted and interpreted. High resolution upper outer and lower-ou ter quadrant left breast ultrasound was performed. COMPARISON: June 08, 2020 bilateral screening mammogram FINDINGS: MAMMOGRAPHIC FINDINGS: No suspicious mass or architectural distortion is evident. A biopsy marker is noted in the lower outer left breast. Minimal benign calcification. ULTRASOUND: 3:00 4 cm from nipple: Parallel circumscribed hypoechoic 1.9 x 3.8 x 3.7 mm lesion is noted with cent ral linear fat density. No internal vascularity or posterior shadowing. This appears benign, possibly a small intramammary lymph node. IMPRESSION: 1. No mammographic or sonographic evidence of left breast malignancy 2. Routine annual mammographic screening is recommended. BI-RADS Category 2: Benign finding(s). Reviewed, dictated and finalized at location A. TOR OF EDUCATION IMPRESSION: 1. No mammographic or sonographic evidence of left breast malignancy 2. Routine annual mammographic screening is recommended. BI-RADS Category 2: Benign finding(s).
== END ==
PROVIDERS: PCP Nurse Practitioner; Visit Provider Nurse Practitioner
DX: R92.8 Other abnormal and inconclusive findings on diagnostic imaging of breast (principal)
CPT/HCPCS: 76642; 77061; 77065; G0279

== ENCOUNTER 2022-12-14 08:39 | Outpatient (CLI) | payer OTHER, SELFPAY ==
--- NOTE | ~2022-12-14 | CT_ITS ---
Clinical Indication: Non-small cell carcinoma of the left lung CT Scan of the Chest with Contrast: Technique: Contiguous sections were acquired throughout the chest after intravenous administration of 75 cc of Omnipaque 350. Dose reduction technique was used on this scan by utilizing automated exposu re control and iterative reconstruction technique. The dose-length product (DLP) was 137.07 mGy-cm. COMPARISON: 06/09/2022 Findings: There is no evidence of any significant mediastinal, hilar or axillary lymphadenopathy. There are ath erosclerotic calcifications of the aorta and coronary arteries. There is no filling defect in the pul monary arterial tree to suggest pulmonary embolus. There is no evidence of aortic dissection or aneur ysm. There is no evidence of pleural or pericardial effusion. There is evidence of prior left lower lobectomy. There is associated left-sided volume loss. There is mild biapical scarring. There is additional probable mild postoperative scarring at the left lung ba se. Images through the upper abdomen reveal no abnormalities. Impression: No evidence for active malignancy or metastatic disease. Stable postoperative changes of the left lung. Reviewed, dictated and finalized at location . Impression: No evidence for active malignancy or metastatic disease. Stable postoperative changes of the left lung.
== END 2022-12-14 08:40 | disposition home or self-care (01) ==
PROVIDERS: PCP Family Medicine; Visit Provider Internal Medicine Hematology & Oncology
DX: C34.92 Malignant neoplasm of unspecified part of left bronchus or lung (principal)
CPT/HCPCS: 71260; Q9967

== ENCOUNTER 2023-06-04 06:48 | Outpatient (CLI) | payer OTHER, SELFPAY ==
--- NOTE | ~2023-06-04 | CT_ITS ---
Clinical Indication: Lung cancer CT Scan of the Chest with Contrast: Technique: Contiguous sections were acquired throughout the chest after intravenous administration of 75 cc of Omnipaque 350. Dose reduction technique was used on this scan by utilizing automated exposu re control and iterative reconstruction technique. The dose-length product (DLP) was 134.63 mGy-cm. COMPARISON: 12/14/2022 Findings: There is no evidence of any significant mediastinal, hilar or axillary lymphadenopathy. There is no f illing defect in the pulmonary arterial tree to suggest pulmonary embolus. There is no evidence of ao rtic dissection or aneurysm. There are atherosclerotic calcifications of the aorta and coronary arter ies. There is no evidence of pleural or pericardial effusion. There is mild emphysema and mild biapical scarring. Evidence of prior left lower lobectomy. Stable lowe bcentimeter peripheral right upper lobe pulmonary nodules, likely postinflammatory in nature. Images through the upper abdomen reveal no abnormalities. Impression: No evidence for active malignancy or metastatic disease. Status post left lower lobectomy. Stable mild emphysema and biapical scarring. Reviewed, dictated and finalized at location . VABLE PROSTHODONTIST Impression: No evidence for active malignancy or metastatic disease. Status post left lower lobectomy. Stable mild emphysema and biapical scarring.
[2023-06-04 07:24] LABS: Estimated Glomerular Filt Rate > 60
== END 2023-06-04 06:49 | disposition home or self-care (01) ==
PROVIDERS: PCP Family Medicine; Visit Provider Internal Medicine Hematology & Oncology
DX: C34.92 Malignant neoplasm of unspecified part of left bronchus or lung (principal); J43.9 Emphysema, unspecified
CPT/HCPCS: 71260; Q9967

== ENCOUNTER 2023-06-27 01:14 | Day surgery (SDC) | payer OTHER, SELFPAY ==
[2023-06-19 13:26] VITALS: BMI 20.7
--- NOTE | 2023-06-25 10:30 | SUR.PREOP ---
Patient called regarding upcoming procedure. Reviewed preop instructions, appointment times, and procedure prep.
[2023-06-27 09:07] VITALS: BP 149/60; PULSE 71; RESP 16; TEMP 36.2; O2SAT 97
[2023-06-27] MEDS: LACTATED RINGERS 1,000 ML 150 ML IV CONT (09:09)
--- NOTE | 2023-06-27 09:45 | WPDANESEPPF ---
Anes - Initial Pre Proc Eval Procedure: Operation Date: 06/27/23 10:30 Proposed Procedures p Colonoscopy - Jose Francisco Rodriguez MD Date/Time: 06/27/23 09:45 Surgeon: Jose Francisco Rodriguez MD Pre Op Diagnosis: hx colon polyps Patient Data Age: 77 Gender: F Height: 1.69 m Weight: 58 kg Last Vital Signs Temp 97.2 F L 06/27/23 09:07 Pulse 71 06/27/23 09:07 Resp 16 06/27/23 09:07 BP 149/60 H 06/27/23 09:07 Pulse Ox 97 06/27/23 09:07 O2 Del Method Room Air 06/27/23 09:07 Allergies Allergy/AdvReac Type Severity Reaction Status Date / Time No Known Allergies Allergy Verified 06/27/23 09:04 Home Medications Medication Instructions Recorded Confirmed Type aspirin 81 mg chewable tablet 81 mg PO DAILY #30 tabs 06/04/19 06/27/23 Rx calcium carbonate 600 mg calcium 1,200 mg PO DAILY 05/21/20 06/27/23 History (1,500 mg) tablet (Calcium) acetaminophen 325 mg capsule 500 mg PO Q6H PRN Pain 10/08/20 06/27/23 History (Tylenol) cyanocobalamin (vitamin B-12) 500 1,000 mcg PO DAILY 12/28/20 06/27/23 History mcg tablet ferrous sulfate 325 mg (65 mg 325 mg PO DAILY 02/18/21 06/27/23 History iron) tablet Bacillus coagulans 250 million 250 cell PO DAILY 03/07/21 06/27/23 History cell chewable tablet (Probiotic (B. coagulans)) cholecalciferol (vitamin D3) 50 50 mcg PO DAILY 03/07/21 06/27/23 History mcg (2,000 unit) capsule perindopril erbumine 8 mg tablet 8 mg PO BID #180 tabs 04/11/23 06/27/23 Rx vitamin B complex 1 cap PO DAILY 06/19/23 06/27/23 History metoprolol succinate 25 mg 25 mg PO DAILY 06/27/23 06/27/23 History tablet,extended release 24 hr Patient hx anesthesia problems: none Family hx anesthesia problems: none Results Review: All pre-operative results and documents have been reviewed as part of the pre-operative evaluation. PMFSH Past Medical History Medical History (Updated 05/04/23 @ 10:24 by Sena Clements APRN) Cancer of left lung Status post left lower lobectomy and chemotherapy. Chronic anemia Diastolic dysfunction Essential hypertension History of skin cancer Osteopenia Paroxysmal supraventricular tachycardia Personal history of colonic polyps Transient atrial fibrillation Post left lower lobectomy. Surgical History Surgical History History of colonoscopy with polypectomy (~07/2018) Dr Ritter - repeat in 5 years History of lobectomy of lung (~08/2020) Left lower lobe. History of lung biopsy (~05/2020) Port-A-Cath in place Family History Family History Mother Hypertension Cerebrovascular accident Sibling Asthma Social History Social History Social History: Surrogate decision maker: Sabrina Moon, daughter. Code status: Full code. Smoking packs per day: 1.5 Smoking cigarettes per day: 30.0 Years smoked: 57 Smoking pack-years: 85.50 Smoking status: Former smoker Tobacco type: cigarettes Second hand tobacco smoke exposure: Yes Smoking end date: 09/13/20 Alcohol intake: current Drinks per week: 10 Alcohol use details: beer Substance use: never Substance use type: does not use Lack of Transportation: No Lack of Food: Never True Current Housing: I Have Housing Concerned About Future Housing: No Difficulty Paying Gas/Electric Bills: No Difficulty Paying for Meds: No Currently Unemployed: No Difficulty w/ Childcare or Family Care: No Living arrangements: alone Additional living arrangements comments: The patient lives in her own home in [place]. Her 11/2020 from lung cancer. 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 Gender identity (if verbalized by the patient): Female Sexual Orientation (if Verbalized by the Patient)
--- NOTE | 2023-06-27 09:49 | PM.HPGS ---
History of Present Illness History of Present Illness Consent: Risks, benefits, and alternatives have been discussed and questions answered. Patient agrees to proceed with procedure. Chief complaint: hx colon polyps Narrative: Sharmila Azevedo is a 77 year old female with colon polyp 5 years ago Review of Systems Constitutional: Constitutional: Denies headache(s) and Denies weakness Eyes: Eyes: Denies blurry vision ENT: Reports Normal hearing present, Denies headache(s) and Denies neck pain Cardiovascular: Cardiovascular: Denies chest pain and Denies dyspnea Respiratory: Respiratory: Denies dyspnea Gastrointestinal: Gastrointestinal: Reports no additional gastrointestinal complaints Genitourinary: Genitourinary: Denies dysuria Musculoskeletal: Musculoskeletal: Denies neck pain Integumentary/Breasts: Skin/Breast: Denies dry skin Neurologic: Reports Normal hearing present, Denies headache(s) and Denies weakness Psychiatric: Psychiatric: Denies anxiety Endocrine: Endocrine: Denies change in body appearance Hematologic/Lymphatic: Hematologic/Lymphatic: Denies easy bleeding Allergic/Immunologic: Allergic/Immunologic: Denies urticaria PMFSH Past Medical History Medical History (Updated 05/04/23 @ 10:24 by Sena Clements, SELAM) Cancer of left lung Status post left lower lobectomy and chemotherapy. Chronic anemia Diastolic dysfunction Essential hypertension History of skin cancer Osteopenia Paroxysmal supraventricular tachycardia Personal history of colonic polyps Transient atrial fibrillation Post left lower lobectomy. Surgical History Surgical History History of colonoscopy with polypectomy (~07/2018) Dr Ritter - repeat in 5 years History of lobectomy of lung (~08/2020) Left lower lobe. History of lung biopsy (~05/2020) Port-A-Cath in place Family History Family History Mother Hypertension Cerebrovascular accident Sibling Asthma Social History Social History Social History: Surrogate decision maker: Sabrina Moon, daughter. Code status: Full code. Smoking packs per day: 1.5 Smoking cigarettes per day: 30.0 Years smoked: 57 Smoking pack-years: 85.50 Smoking status: Former smoker Tobacco type: cigarettes Second hand tobacco smoke exposure: Yes Smoking end date: 09/13/20 Alcohol intake: current Drinks per week: 10 Alcohol use details: beer Substance use: never Substance use type: does not use Lack of Transportation: No Lack of Food: Never True Current Housing: I Have Housing Concerned About Future Housing: No Difficulty Paying Gas/Electric Bills: No Difficulty Paying for Meds: No Currently Unemployed: No Difficulty w/ Childcare or Family Care: No Living arrangements: alone Additional living arrangements comments: The patient lives in her own home in [place]. Her 11/2020 from lung cancer. 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 Gender identity (if verbalized by the patient): Female Sexual Orientation (if Verbalized by the Patient): Straight or Heterosexual Spiritual care concerns: No Agree to blood products: Yes Meds Home Medications and Allergies Home Medications Medication Instructions Recorded Confirmed Type aspirin 81 mg chewable tablet 81 mg PO DAILY #30 tabs 06/04/19 06/27/23 Rx calcium carbonate 600 mg calcium 1,200 mg PO DAILY 05/21/20 06/27/23 History (1,500 mg) tablet (Calcium) acetaminophen 325 mg capsule 500 mg PO Q6H PRN Pain 10/08/20 06/27/23 History (Tylenol) cyanocobalamin (vitamin B-12) 500 1,000 mcg PO DAILY 12/28/20 06/27/23 History mcg tablet ferrous sulfate 325 mg (65 mg 325 mg PO DAILY 02/18/21 06/27/23 History iron) tablet Bacillus coagu
[2023-06-27 10:13] VITALS: BP 108/63; PULSE 69; RESP 18; O2SAT 97
[2023-06-27 10:23] VITALS: BP 114/69; PULSE 83; RESP 13; O2SAT 97
== END 2023-06-27 10:44 | disposition home or self-care (01) ==
PROVIDERS: PCP Family Medicine; Visit Provider Internal Medicine Gastroenterology
PROC: 0DJD8ZZ Inspection of Lower Intestinal Tract, Via Natural or Artificial Opening Endoscopic (ICD-10-PCS; CPT 45378; principal; 2023-06-27 10:30)
DX: Z12.11 Encounter for screening for malignant neoplasm of colon (principal); K57.30 Diverticulosis of large intestine without perforation or abscess without bleeding; I10 Essential (primary) hypertension; D64.89 Other specified anemias; M85.80 Other specified disorders of bone density and structure, unspecified site; Z79.82 Long term (current) use of aspirin; Z86.010 Personal history of colon polyps; Z85.118 Personal history of other malignant neoplasm of bronchus and lung; Z86.79 Personal history of other diseases of the circulatory system; Z87.891 Personal history of nicotine dependence; Z90.2 Acquired absence of lung [part of]; Z45.2 Encounter for adjustment and management of vascular access device; Z82.49 Family history of ischemic heart disease and other diseases of the circulatory system
CPT/HCPCS: G0105; J2704; J7120

== ENCOUNTER 2023-09-25 12:13 | Emergency (ER) | payer OTHER, SELFPAY ==
[2023-09-25 12:23] VITALS: BP 103/59; PULSE 72; RESP 16; TEMP 36.8; O2SAT 100
--- NOTE | 2023-09-25 13:14 | ED.NAVMDI ---
HPI - Nausea/Vomiting/Diarrhea General Chief complaint: Nausea/Vomiting/Diarrhea Stated complaint: Blood in stool/n/v/ low blood pressure Time Seen by Provider: 09/25/23 13:05 Source: patient Mode of arrival: ambulatory Limitations: no limitations History of Present Illness HPI Narrative: 78-year-old female who presents to [facility] with complaints starting with nausea and vomiting late Sunday night progressing and to bloody diarrhea on Sunday and yesterday and once this morning. Patient states she ate out on Sunday evening and her daughter had the same thing and they both have had diarrhea but daughter only mild. Patient reports it is bright red bleeding denies any history of known hemorrhoids. has had colon polyps in past, last colonoscopy in May. Patient reports she checked her blood pressure this morning systolic was 85. Patient denies any fevers,no body aches or headaches, does have some tenderness across middle abdomen she reports. Patient reports that she has drank fluids but appetite has been down MD elicited complaint: nausea, vomiting, diarrhea, abdominal pain (tenderness across middle abdomen) and other (bloody diarrhea) Pertinent past history: other (colon polyp) Onset (ago): day(s) (4) Description of diarrhea: blood (bright red noted in stool) and watery Associated nausea: Yes Associated abdominal pain: Yes Location of pain: other (across mid abdomen) Pain consistency: intermittent and colicky Severity: mild Pain scale (0-10): 2 Related Data Home Medications Medication Instructions Recorded Confirmed calcium carbonate 600 mg calcium 1,200 mg PO DAILY 05/21/20 09/25/23 (1,500 mg) tablet (Calcium) acetaminophen 325 mg capsule 500 mg PO Q6H PRN Pain 10/08/20 09/25/23 (Tylenol) cyanocobalamin (vitamin B-12) 500 1,000 mcg PO DAILY 12/28/20 09/25/23 mcg tablet ferrous sulfate 325 mg (65 mg 325 mg PO DAILY 02/18/21 09/25/23 iron) tablet Bacillus coagulans 250 million 250 cell PO DAILY 03/07/21 09/25/23 cell chewable tablet (Probiotic (B. coagulans)) cholecalciferol (vitamin D3) 50 50 mcg PO DAILY 03/07/21 09/25/23 mcg (2,000 unit) capsule vitamin B complex 1 cap PO DAILY 06/19/23 09/25/23 metoprolol succinate 25 mg 25 mg PO DAILY 06/27/23 09/25/23 tablet,extended release 24 hr Allergies Allergy/AdvReac Type Severity Reaction Status Date / Time No Known Allergies Allergy Verified 09/25/23 14:27 Review of Systems Review of Systems: CONSTITUTIONAL: Denies fever, chills, or sweats. EYES: Denies visual changes, redness, or discharge. ENT: Denies rhinorrhea, congestion, sore throat, or otalgia. CARDIOVASCULAR: Denies chest pain, palpitations, or edema. RESPIRATORY: Denies cough or dyspnea. GASTROINTESTINAL:across mid abdominal pain,positive for nausea, vomiting, bloody diarrhea. GENITOURINARY: Denies dysuria or hematuria. SKIN: Denies rash or itching. MUSCULOSKELETAL: Denies back pain, joint pain, or myalgia. NEUROLOGIC: Denies headache, numbness, or weakness. PSYCHIATRIC: Denies anxiety or depression. All systems reviewed & are unremarkable except as noted in HPI and below PMFSH Past Medical History Medical History Cancer of left lung Status post left lower lobectomy and chemotherapy. Chronic anemia Diastolic dysfunction Essential hypertension History of skin cancer Osteopenia Paroxysmal supraventricular tachycardia Personal history of colonic polyps Transient atrial fibrillation Post left lower lobectomy. Surgical History Surgical History History of colonoscopy with polypectomy (~07/2018) Dr Ritter - repeat in 5 years History of lobectomy of lung (~08/2020) Left lower lobe. History of lung biopsy (~05/2020) Port-A-Cath in place Family History Family History Mother Hypertension Cerebrovascul
== END 2023-09-25 13:58 | disposition short-term general hospital (02) ==
PROVIDERS: Emergency Provider Registered Nurse; PCP Family Medicine
DX: K92.1 Melena (principal); R19.7 Diarrhea, unspecified; R10.33 Periumbilical pain; I10 Essential (primary) hypertension; I48.91 Unspecified atrial fibrillation; Z79.899 Other long term (current) drug therapy; Z85.828 Personal history of other malignant neoplasm of skin; Z85.118 Personal history of other malignant neoplasm of bronchus and lung; Z87.891 Personal history of nicotine dependence
CPT/HCPCS: 99212; G0463

== ENCOUNTER 2023-09-25 14:26 | Emergency (ER) | payer OTHER, SELFPAY ==
--- NOTE | ~2023-09-25 | CT_ITS ---
EXAMINATION: CT abdomen pelvis w con DATE: 09/25/2023 18:25 INDICATION: lower abd pain, N/V/D, bloody stool TECHNIQUE: Computed tomography (CT) of the abdomen and pelvis was performed with 100 mL Omnipaque-350 intravenous contrast. Automated exposure control and iterative reconstruction technique were employe d. The dose-length product was 277.76 mGy-cm. COMPARISON: PET/CT 07/06/2020. FINDINGS: Lower thorax: Left basilar scar. Mitral and/or coronary artery calcification Liver: Normal. Biliary/Gallbladder: Mild gallbladder wall edema/inflammation with mucosal hyperemia. No bile duct di lation. Pancreas: No mass or duct dilation. Spleen: Normal. Adrenals:No mass. Kidneys: No suspicious mass, obstructing stone, or hydronephrosis. GI tract: Moderate distal esophageal and gastric wall edema. Uncomplicated duodenal diverticulum [place] wall edema with mild surrounding inflammatory change extending from the splenic flexure to the mi d sigmoid. No small or large bowel dilation. Normal appendix. Diverticulosis without diverticulitis. Mesentery/Peritoneum: No ascites, mass, or free air. Retroperitoneum: No mass. Atherosclerotic abdominal aortic and/or arterial calcifications. Pelvis: Pelvic organs are within normal limits. Prominent pelvic veins. Soft Tissues: Small fat-containing uncomplicated umbilical hernia. Bones: No acute osseous finding. IMPRESSION: Mild wall edema/inflammation of the gallbladder, no obstructing stone or biliary dilation. Correlate with symptoms of right upper quadrant pain and biliary labs. Descending colonic and proximal sigmoid colitis, likely on a infectious, inflammatory, or ischemic ba sis. Small volume free pelvic fluid. Prominent pelvic veins, as can be seen with pelvic congestion. Reviewed, dictated and finalized at location K. AR BASTER IMPRESSION: Mild wall edema/inflammation of the gallbladder, no obstructing stone or biliar y dilation. Correlate with symptoms of right upper quadrant pain and biliary la bs. Descending colonic and proximal sigmoid colitis, likely on a infectious, inflam matory, or ischemic basis. Small volume free pelvic fluid. Prominent pelvic veins, as can be seen with pelvic congestion.
[2023-09-25 14:37] VITALS: BP 137/55; PULSE 75; RESP 20; TEMP 36.3; O2SAT 97
--- NOTE | 2023-09-25 17:19 | ED.ABDPAIN ---
HPI - Abdominal Pain General Chief Complaint: Abdominal Pain <MYLES Turner Last Filed: 09/25/23 17:36> Stated Complaint: bloody stool, weak, abd pain <MYLES Turner Last Filed: 09/25/23 17:36> Time Seen by Provider: 09/25/23 17:15 <MYLES Turner Last Filed: 09/25/23 17:36> Focused HPI: Patient is a 78 y/o female who presents to the ED with c/o N/V/D. Patient reports she ate out at [facility] on Sunday and had a BLT. She developed nausea, vomiting, diarrhea hours later. She notes having several episodes of diarrhea with blood mixed in with the stool. Reports 5-6 episodes of bloody diarrhea that night. States symptoms improved yesterday, however patient woke up this morning with blood in her bowel movement again, which prompted her presentation. She otherwise feels improved currently. Denies any nausea currently. She did report having pain throughout her lower abdomen the last few days, described as a cramping and soreness. Denies any fevers, urinary sx's, cough/cold sx's. Daughter at bedside reports she ate the same thing on Sunday night and did have an episode of diarrhea that night. GENERAL: Well-appearing, well-nourished, and in no acute distress. HEAD: Normocephalic, atraumatic. CHEST: Clear to auscultation. ?No respiratory distress. HEART: Regular rate and rhythm.? ABD: Minimal tenderness throughout lower abdomen. NEURO: ?Alert and oriented x3. Patient screened in triage and initial orders placed.? ?Additional care and disposition to be based upon?diagnostic testing and treatment. <MYLES Turner Last Filed: 09/25/23 17:36> Source: patient <MYLES Turner Last Filed: 09/25/23 17:36> Mode of arrival: ambulatory <MYLES Turner Last Filed: 09/25/23 17:36> Limitations: no limitations <MYLES Turner Last Filed: 09/25/23 17:36> Related Data Home Medications: Home Medications Medication Instructions Recorded Confirmed calcium carbonate 600 mg calcium 1,200 mg PO DAILY 05/21/20 09/25/23 (1,500 mg) tablet (Calcium) acetaminophen 325 mg capsule 500 mg PO Q6H PRN Pain 10/08/20 09/25/23 (Tylenol) cyanocobalamin (vitamin B-12) 500 1,000 mcg PO DAILY 12/28/20 09/25/23 mcg tablet ferrous sulfate 325 mg (65 mg 325 mg PO DAILY 02/18/21 09/25/23 iron) tablet Bacillus coagulans 250 million 250 cell PO DAILY 03/07/21 09/25/23 cell chewable tablet (Probiotic (B. coagulans)) cholecalciferol (vitamin D3) 50 50 mcg PO DAILY 03/07/21 09/25/23 mcg (2,000 unit) capsule vitamin B complex 1 cap PO DAILY 06/19/23 09/25/23 metoprolol succinate 25 mg 25 mg PO DAILY 06/27/23 09/25/23 tablet,extended release 24 hr <MYLES Tunrer Last Filed: 09/25/23 17:36> Allergies/Adverse Reactions: Allergies Allergy/AdvReac Type Severity Reaction Status Date / Time No Known Allergies Allergy Verified 09/25/23 14:27 <MYLES Turner Last Filed: 09/25/23 17:36> Review of Systems Review of Systems: All systems as dictated in HPI <MYLES Kwon Last Filed: 09/25/23 21:01> [facility] Past Medical History Medical History: Medical History Cancer of left lung Status post left lower lobectomy and chemotherapy. Chronic anemia Diastolic dysfunction Essential hypertension History of skin cancer Osteopenia Paroxysmal supraventricular tachycardia Personal history of colonic polyps Transient atrial fibrillation Post left lower lobectomy. <MYLES Turner Last Filed: 09/25/23 17:36> Surgical History Surgical History: Surgical History History of colonoscopy with polypectomy (~07/2018) Dr Ritter - repeat in 5 years History of lobectomy of lung (~08/2020) Left lower lobe. History of lung
[2023-09-25 17:26] VITALS: BP 107/43; PULSE 64; RESP 14; TEMP 36.7; O2SAT 98
[2023-09-25 17:47] LABS: Alanine Aminotransferase 21 U/L (6-35); Alkaline Phosphatase 60 U/L (38-126); Anion Gap 3 mmol/L (8-16); Aspartate Amino Transferase 35 U/L (14-36); Bilirubin,Total 0.5 mg/dL (0.2-1.3); Blood Urea Nitrogen 11 mg/dL (7-17); Calcium 9.2 mg/dL (8.4-10.2); Carbon Dioxide 28 mmol/L (22-30); Chloride 102 mmol/L (98-107); Estimated CRCL calculation 55 ml/min; Estimated Glomerular Filt Rate > 60; Glucose 87 mg/dL (65-110); Lipase 48 U/L (23-300); Potassium 4.3 mmol/L (3.4-5.0); Sodium 133 mmol/L (137-145)
[2023-09-25 17:49] LABS: Basophils Absolute Auto 0.1 K/mm3 (0.0-0.1); Basophils Percent Auto 0.4 % (0.2-1.2); Eosinophils Absolute Auto 0.1 K/mm3 (0-0.3); Eosinophils Percent Auto 0.5 % (0-4.4); Hematocrit 33.5 % (37.0-47.0); Hemoglobin 10.9 g/dL (12.0-15.0); Immature Granulocyte Absolute 0.12 K/mm3 (0.00-0.031); Immature Granulocyte Percent A 0.7 % (0-0.5); Lymphocytes Absolute Auto 1.93 K/mm3 (0.9-3.2); Lymphocytes Percent Auto 10.5 % (18.3-44.2); Mean Corpuscular HGB Conc 32.5 g/dl (32-36); Mean Corpuscular Hemoglobin 30.5 pg (26-34); Mean Corpuscular Volume 93.8 fl (80-100); Mean Platelet Volume 9.9 fl (7.4-10.4); Monocytes Absolute Auto 0.9 K/mm3 (0.1-0.6); Monocytes Percent Auto 4.8 % (2.6-8.5); Neutrophils Absolute Auto 15.3 K/mm3 (1.3-6.7); Neutrophils Percent Auto 83.1 % (45.5-73.1); Platelet Count Result 292 k/mm3 (150-375); Red Blood Count 3.57 M/mm3 (4.2-5.4); Red Cell Distribution Width 14.1 % (11.5-14.5); White Blood Count 18.4 K/mm3 (4.5-10.0)
[2023-09-25 18:39] VITALS: BP 134/67; PULSE 66; RESP 16; TEMP 36.6; O2SAT 99
[2023-09-25] MEDS: SODIUM CHLORIDE 0.9% IV 1,000 ML 999 ML IV CONT (18:54)
--- NOTE | 2023-09-25 19:15 | PC.NURSE ---
Assumed care of pt from BERTRAND Mercer at this time.
[2023-09-25] MEDS: metroNIDAZOLE 500 MG TABLET PO (19:26)
[2023-09-25 20:01] VITALS: BP 140/65; PULSE 66; RESP 17; O2SAT 97
== END 2023-09-25 20:05 | disposition home or self-care (01) ==
PROVIDERS: Physician Assistant; Emergency Provider Physician Assistant; PCP Family Medicine
DX: A09 Infectious gastroenteritis and colitis, unspecified (principal); I10 Essential (primary) hypertension; I48.91 Unspecified atrial fibrillation; Z79.899 Other long term (current) drug therapy; Z85.118 Personal history of other malignant neoplasm of bronchus and lung; Z85.828 Personal history of other malignant neoplasm of skin; Z87.891 Personal history of nicotine dependence
CPT/HCPCS: 36415; 74177; 80053; 83605; 83690; 85025; 86850; 86900; 86901; 96365; 99284; A9270; J0696; J7030; Q9967

== ENCOUNTER 2023-12-10 08:03 | Outpatient (CLI) | payer OTHER, SELFPAY ==
--- NOTE | ~2023-12-10 | CT_ITS ---
EXAMINATION: CT diagnostic chest w con DATE: 12/10/2023 08:32 INDICATION: NON SMALL CELL CA OF LT LUNG TECHNIQUE: Computed tomography (CT) of the chest was performed without intravenous contrast. Addition al 3D reconstructions utilizing coronal maximum intensity projection (MIP) were performed. Automated exposure control and iterative reconstruction technique were employed. The dose-length product was 14 2.83 mGy-cm. COMPARISON: 06/04/2023 FINDINGS: Mild emphysema. Postoperative change of prior left thoracotomy and left lower lobectomy with mediasti nal and hilar surgical clips and suture lines. Stable appearance of mild scarring in the posterior in ferior left lower lobe. Again seen are several scattered <4 mm or smaller solid or semisolid nodules in the right lung. Stable appearance of moderate biapical pleural-parenchymal scarring. No pneumonia, pulmonary edema or pleural effusion. Heart size is normal. No pericardial effusion. Atherosclerotic coronary artery calcification. No pericardial effusion. Thoracic aorta is normal in caliber with no d issection. No pathologically enlarged thoracic lymphadenopathy. Thoracic dextroscoliosis. Chronic mil d anterior wedging of a few mid thoracic vertebral bodies with moderate spondylosis. IMPRESSION: 1. Mild emphysema. 2. Status post left lower lobectomy with stable appearance of moderate biapical pleural-parenchymal s carring and mild scarring in the posterior inferior left upper lobe. 3. No evident change in several scattered likely benign < 4 mm pulmonary nodules in the right lung. Reviewed, dictated and finalized at location B. IMPRESSION: 1. Mild emphysema. 2. Status post left lower lobectomy with stable appearance of moderate biapical pleural-parenchymal scarring and mild scarring in the posterior inferior left upper lobe. 3. No evident change in several scattered likely benign < 4 mm pulmonary nodule s in the right lung.
== END 2023-12-10 08:04 | disposition home or self-care (01) ==
LOC: ANHIMG 08:06
PROVIDERS: PCP Family Medicine; Visit Provider Internal Medicine Hematology & Oncology
DX: C34.92 Malignant neoplasm of unspecified part of left bronchus or lung (principal); J43.9 Emphysema, unspecified
CPT/HCPCS: 71260; Q9967

== ENCOUNTER 2024-01-26 08:52 | Outpatient (CLI) | payer OTHER, SELFPAY ==
--- NOTE | ~2024-01-26 | MM_ITS ---
EXAMINATION: MM screening desi BI w dean HISTORY: Screening mammogram, family history of breast cancer in her sister. TECHNIQUE: Craniocaudal and mediolateral oblique 3-D tomosynthesis images were obtained and synthetic 2-D images were generated. CAD analysis was submitted and interpreted. COMPARISON: 09/26/2022, 09/08/2022, 05/19/2021, 07/25/2019 BREAST PARENCHYMAL COMPOSITION:Not Dense. There are scattered areas of fibroglandular density. FINDINGS: No suspicious mass, calcification, or architectural distortion are identified in either colt ast to suggest malignancy. There has been no suspicious interval change. IMPRESSION: No mammographic evidence of malignancy. Recommend routine screening mammography in one year. BI-RADS Category 1: Negative Reviewed, dictated and finalized at location .
== END 2024-01-26 08:53 ==
LOC: MICIMG 08:53
PROVIDERS: PCP Family Medicine; Visit Provider Nurse Practitioner Family
DX: Z12.31 Encounter for screening mammogram for malignant neoplasm of breast (principal)
CPT/HCPCS: 77063; 77067

== ENCOUNTER 2024-07-31 09:23 | Outpatient (CLI) | payer OTHER, SELFPAY ==
--- NOTE | ~2024-07-31 | CT_ITS ---
EXAMINATION: CT diagnostic chest w con DATE: 07/31/2024 10:23 INDICATION: LUNG CANCER TECHNIQUE: Computed tomography (CT) of the chest was performed without intravenous contrast. with 100 mL Omnipaque-350 Automated exposure control and iterative reconstruction technique were employed. Th e dose-length product was 131.97 mGy-cm. COMPARISON: 12/10/2023 FINDINGS: Mild emphysema with moderate posterior biapical pleural-parenchymal scarring. Postoperative change of prior left thoracotomy and left lower lobectomy with mediastinal surgical clips and suture lines. In terval increase in size of a 1.8 x 0.8 x 1.5 cm groundglass opacity in the posterior inferior left up per lobe which currently measures 2.3 x 1.7 x 1.9 cm. No change in a cluster of a few <4 mm nodules i n the right upper lobe. There are also a few tiny calcified nodules at the bilateral apices consisten t with old granulomatous disease. Heart size is normal with biatrial enlargement. Atherosclerotic cor onary artery calcification. No pericardial effusion. Ectatic ascending thoracic aorta measuring up to 4.0 cm in maximal diameter. Distal tip of a right internal jugular central venous port catheter at t he superior cavoatrial junction. No pathologically enlarged thoracic lymphadenopathy. Visualized uppe r abdomen is unremarkable. Thoracic dextroscoliosis with moderate spondylosis. Chronic mild anterior wedging of a few mid thoracic vertebral bodies. IMPRESSION: 1. Mild emphysema with chronic biapical pleural-parenchymal scarring and changes of prior left lower lobectomy. 2. Interval increase in size of a previously 1.8 cm currently 2.3 cm subsolid groundglass nodule in t he posterior inferior left upper lobe which is concerning for primary bronchogenic carcinoma. Would c onsider CT-guided percutaneous biopsy. Reviewed, dictated and finalized at location B. R [employer]ODUCTS PRINTER IMPRESSION: 1. Mild emphysema with chronic biapical pleural-parenchymal scarring and change s of prior left lower lobectomy. 2. Interval increase in size of a previously 1.8 cm currently 2.3 cm subsolid g roundglass nodule in the posterior inferior left upper lobe which is concerning for primary bronchogenic carcinoma. Would consider CT-guided percutaneous biop sy.
[2024-07-31 09:59] LABS: Estimated Glomerular Filt Rate > 60
== END 2024-07-31 09:24 | disposition home or self-care (01) ==
LOC: ANHIMG 09:26
PROVIDERS: PCP Family Medicine; Visit Provider Internal Medicine Hematology & Oncology
DX: C34.92 Malignant neoplasm of unspecified part of left bronchus or lung (principal); J43.9 Emphysema, unspecified; Z98.890 Other specified postprocedural states
CPT/HCPCS: 71260; Q9967

== ENCOUNTER 2024-09-03 08:47 | Outpatient (CLI) | payer OTHER, SELFPAY ==
[2024-08-27 10:06] VITALS: BMI 21.3
--- NOTE | 2024-08-27 10:08 | PC.NURSE ---
Pre Radiology instructions Report to the outpatient [facility] on date __09/03/24___ at time _0900am for procedure Time: _1100am___ YOU MAY BE MONITORED AT HOSPITAL FOR UP TO 4 HOURS AFTER YOUR PROCEDURE. A visitor will be allowed to accompany the patient into the hospital. You and your visitor will be asked to self-screen and do not enter if you have any COVID symptoms. A mask is OPTIONAL within the hospital. Patients are to have no food or drink 6 hours prior to procedure time Driving will be restricted after the procedure, you must have a person to drive you home. Labs will be drawn in preop area and once reviewed, you will be taken to radiology area for procedure. When the procedure is completed, you will be taken to outpatient where you will be monitored for several hours. You may have one visitor in this area. Other than holding anti-coagulants, patient may take other medication(s) as scheduled. Prior to your appointment date patients are instructed to hold anti-coagulants after discussing with ordering provider to stop. If unable to discontinue anti-coagulants please notify radiologist. ? No aspirin or warfarin (Coumadin) for 7 days prior to the procedure. ? No clopidogrel (Plavix), ticagrelor (Brilinta), prasugrel (Effient) or dabigatran (Pradaxa) for 5 days prior to the procedure. ? No rivaroxaban (Xarelto), apixaban (Eliquis), dipyridamole (Aggrenox or Persantine) or cilostazol (Pletal) for 2 days prior to the procedure. Medications to discontinue per physician: ___Baby Aspirin Pt aware Date to take last dose: ___08/26/24 Please leave all valuables, including medications, at home the day of procedure. The hospital will not accept responsibility for valuables. Wear comfortable, loose fitting clothing.? Follow any additional instructions given to you from ordering provider. Telephone instructions given to _patient and asked if any additional questions and then verbalized understanding. Patient advised to call scheduling provider office or registration scheduling [phone] if any additional questions.
[2024-09-03] VITALS (8 sets, daily range): BP systolic 115–133; BP diastolic 50–58; PULSE 52–56; RESP 20; TEMP 36.9; O2SAT 98–100
--- NOTE | ~2024-09-03 | XR_ITS ---
EXAMINATION: XR chest 1V DATE: 09/03/2024 11:34 INDICATION: Left lung nodule status post percutaneous biopsy. TECHNIQUE: A single frontal view of the chest was obtained. COMPARISON: Chest 2 views 12/01/2021 FINDINGS: There is volume loss of left hemithorax status post left lower lobectomy. There is mild sca rring at the lung apices. There are airspace opacities in left midlung zone. No pleural effusion or p neumothorax. The heart size is normal. There is a right internal jugular port with tip in superior ve na cava. IMPRESSION: 1. Airspace opacities in left midlung zone, consistent with postbiopsy hemorrhage. Reviewed, dictated and finalized at location A. RAISING ASSISTANT IMPRESSION: 1. Airspace opacities in left midlung zone, consistent with postbiopsy hemorrha ge.
--- NOTE | ~2024-09-03 | XR_ITS ---
EXAMINATION: XR chest 1V portable DATE: 09/03/2024 12:54 INDICATION: Left lung nodule status post percutaneous biopsy. TECHNIQUE: A single frontal view of the chest was obtained. COMPARISON: Chest single view at 11:32 AM FINDINGS: There is volume loss of left hemithorax status post left lower lobectomy. There are airspac e opacities in left midlung zone. No pleural effusion or pneumothorax. The heart size is normal. Ther e is a right internal jugular port with tip in superior vena cava. IMPRESSION: 1. Stable airspace opacities in left midlung zone, consistent with postbiopsy hemorrhage. Reviewed, dictated and finalized at location A. N MEAT PACKER IMPRESSION: 1. Stable airspace opacities in left midlung zone, consistent with postbiopsy h emorrhage.
--- NOTE | ~2024-09-03 | XR_ITS ---
EXAMINATION: XR chest 1V portable DATE: 09/03/2024 14:27 INDICATION: Left lung nodule status post percutaneous biopsy. TECHNIQUE: A single frontal view of the chest was obtained. COMPARISON: Chest single view at 12:54 PM FINDINGS: There is volume loss of left hemithorax status post left lower lobectomy. There are airspac e opacities in left midlung zone. No pleural effusion or pneumothorax. The heart size is normal. Ther e is a right internal jugular port with tip in superior vena cava. IMPRESSION: 1. Stable airspace opacities in left midlung zone, consistent with postbiopsy hemorrhage. Reviewed, dictated and finalized at location A. CIPAL TECHNICAL ARCHITECT IMPRESSION: 1. Stable airspace opacities in left midlung zone, consistent with postbiopsy h emorrhage.
--- NOTE | ~2024-09-03 | CT_ITS ---
EXAMINATION: CT biopsy lung w/imaging DATE: 09/03/2024 11:33 INDICATION: Left lung nodule. TECHNIQUE: The procedure including the risks, benefits, and alternatives and possibility of chest tub e placement were discussed with the patient. Risks discussed included infection, hemorrhage, approxim ately 1/3 risk of pneumothorax, approximately 1/10 risk of pneumothorax severe enough to warrant ches t tube placement, and rarely . The patient understood the risks and agreed to proceed. The patie nt was placed prone. The skin overlying the left lung was prepped and draped in sterile fashion. An esthetic was administered with 1% lidocaine subcutaneously. A 19 gauge outer needle was advanced und er CT guidance to the lesion of interest. A 20 gauge core biopsy needle was then used to obtain 2 cor e biopsy specimens. The needle was removed and the entry site was cleaned and dressed. The mA was adj usted according to patient size. Iterative reconstruction technique was employed. The dose-length pro duct was 168.98 mGy-cm. There were no immediate complications. FINDINGS: CT images demonstrate the outer needle tip adjacent to a 2.0 cm part solid nodule in left l cesario upper lobe. Post biopsy images demonstrate hemorrhage around the biopsy site. IMPRESSION: 1. CT-guided core needle biopsy of a 2.0 cm part solid nodule in left lung upper lobe. Reviewed, dictated and finalized at location A. ODIAL AIDE IMPRESSION: 1. CT-guided core needle biopsy of a 2.0 cm part solid nodule in left lung upp er lobe.
--- OUTSIDE RECORDS SUMMARY | 2024-09-03 09:01 | XMS_ITS | Clinical Summary ---
Author Organization [facility] Pablo Knowles Address [address] [place] [address] Care Team Providers Care Acid Bleacher Name Role Phone Shilpi Christianson MD Primary Care Provider Allergies No known active allergies Medications perindopril erbumine (ACEON) 8 mg Tablet Take 8 mg by mouth daily. Taking 2 timeS daily 1 Active B-complex + vitamin C (SUPER B-C) Tablet Take 1 Tablet by mouth daily at bedtime. Active cholecalcifero l, Vitamin D3, (D3 DOTS) 50 mcg (2,000 unit) Tablet Take 2,000 Units by mouth daily. Active calcium carbonate + vitamin D (CALTRATE+D) 600 mg(1,500mg) -400 unit Tablet Take 2 Tablets by mouth 2 times daily with meals. Active aspirin (ECOTRIN EC) 81 mg Tablet, Delayed Release (E.C.) Take 81 mg by mouth daily. Active acetaminophen (TYLENOL) 325 mg tablet Take 2 Tablets (650 mg) by mouth every 6 hours as needed for Other (See Comment) (See admin instructions). 1 Active docusate sodium (COLACE) 100 mg capsule Take 1 Capsule (100 mg) by mouth 2 times daily. 1 Active lidocaine-pril ocaine (EMLA) 2.5-2.5 % CreamIndicatio ns:Non-small cell cancer of left lung (CMS/HCC) Apply to affected area see administration instructions. APPLY TO PORT SITE 30 MINUTES PRIOR TO ACCESS 30 Gram 3 1 Active ondansetron (Zofran) 8 mg TabletIndicati ons:Non-small cell cancer of left lung (CMS/HCC) Take 1 Tablet (8 mg) by mouth every 8 hours as needed for Nausea/Emesis. 90 Tablet 3 1 Active dexAMETHasone (DECADRON) 4 mg tabletIndicati ons:Non-small cell cancer of left lung (CMS/HCC) Take 1 Tablet (4 mg) by mouth 2 times daily. TAKE TWICE A DAY THE DAY BEFORE TREATMENT, DAY OF, AND DAY AFTER TREATMENT 36 Tablet 3 1 Active metoprolol succinate (TOPROL XL) 25 mg Extended Release 24 hour tablet 50 mg. Two 25 mg once a day 1 Active ferrous sulfate 325 mg (65 mg iron) tablet Take 325 mg by mouth daily. Active L. acidophilus/L. rhamnosus (PROBIOTIC ORAL) Take by mouth. Activ e penicillin V potassium (VEETID) 500 mg tablet TAKE 1 TABLET BY MOUTH EVERY 6 HOURS FOR 10 DAYS 2 Active Active Problems Patient Care Coordination No te Formatting of this note migh t be different from the original. CT Surgery- [place] [address], [facility] Problem Noted Date Diagnosed Date Severe protein-calorie malnutrition 09/14/2020 Non-small cell cancer of left lung 06/14/2020 HTN (hypertension) Pneumothorax Encounters Date Type Department Care Team Description 08/27/2024 External Device Data STL ABSTRACTION Provider, Abstract 08/21/2024 External Device Data STL ABSTRACTION Provider, Abstract 08/20/2024 Orders Only [facility] Oncology and Hematology - [place] [address] [place] [address] Bismark Vines MD 08/19/2024 10:00 AM CORRECTION OFFICER Office Visit [facility] Oncology and Hematology - [place] [address] [place] [address] Bismark Vines MD Non-small cell cancer of left lung (CMS/HCC) (Primary Dx) 08/08/2024 Orders Only [facility] Oncology and Hematology - [place] [address] [place] [address] Bismark Vines MD 08/06/2024 Orders Only [facility] Oncology and Hematology - [place] [address] [place] [address] Bismark Vines MD 06/10/2024 External Device Data STL ABSTRACTION Provider, Abstract from Last 3 Months Immunizations Immunization Administration Dates Next Due (PFIZER)(12 YR UP) COVID-19 VACCINE - EMERGENCY USE AUTHORIZATION, MRNA, [id number](PF) 30 MCG/0.3 ML IM SUSP 06/04/2021 Family History Medical History Relation Name Comments Asthma Brother 1 Stroke Brother 1 Cancer Brother 2 Healthy Brother 3 Healthy Daughter Stroke Father Cancer Mother Stroke Mother Breast Cancer Sister 1 Breast Cancer Sister 2 Healthy Son Relation Name Status Comments Brother 1 Brother 2 Alive Brother 3 Alive Daughter Alive Father Mother Sister 1 Sister 2 Alive Son Alive Social History Tobacco Use Types Packs/Day Years Used Date Smoking Tobacco: Former Cigarettes 1.5 57 0 07/30/1963 - 07/30/2020 Smokeless Tobacco: Never Tobacco Cessation:Counseling Given: Not Answered Alcohol Use Standard Drinks/Week Comments Yes 14 (1 standard drink = 0.6 oz pu re alcohol) Comments No Sex and Gender Information Value Date Recorded Sex Assigned at Not on file Legal Sex Female 11:48 PM CDT Gender Identity Not on file Sexual Orientation Not on file Last Filed Vital Signs Vital Sign Reading Time Taken Comments Blood Pressure 146/69 08/19/2024 10:10 AM CORRECTION OFFICER Pulse 59 08/19/2024 10:10 AM CORRECTION OFFICER Temperature 36.7 ??C (98.1 ??F) 08/19/2024 10:[address] Respiratory Rate 16 08/19/2024 10:10 AM CORRECTION OFFICER Oxygen Saturation 91% 08/19/2024 10:10 AM CORRECTION OFFICER Inhaled Oxygen Concentration - - Weight 60.3 kg (133 lb) 08/19/2024 10:10 AM CORRECTION OFFICER Height 167.6 cm (5' 6 ) 02/06/2022 12:07 PM CDT Body Mass Index 21.47 02/06/2022 12:07 PM CDT Plan of Treatment Upcoming Encounters Date Type Department Care Team (Late st Contact Info) Description 09/10/2024 4:30 PM CORRECTION OFFICER Telephone Check Up [facility] Oncology and Hematology - [place] [address] [facility] [address] [place] [address] Bismark Vines MD [address] [facility] [address] [place] [address] Health Maintenance Due Date Last Done Comments DTAP/TDAP/TD VACCINES (1 - Tdap) 1966 PNEUMOCOCCAL VACCINE 65+ YEARS (1 of 1 - PCV) 06/29/19 97 ZOSTER VACCINE (1 of 2) 1997 OSTEOPOROSIS SCREENING 2012 RSV VACCINE (60+ or ) (1 - 1-dose 75+ series) 2022 INFLUENZA VACCINE (#1) 2024 COVID-19 Vaccine (2 - season) 03/30/202412/2020 Medicare Advantage (MD) Prev entative Visit/Annual Wellness Visit 07/30/2024 Medical Devices Implanted Type Area Silicator Device Identifier Shelf Expiration Date Model / Serial / Lot Clip Hemolok [id number] [id number] - Csc - [id number] Implanted:Qty: 1 on 09/13/2020 by Dimitri Simon MD at [facility] Clip Left: Lung TELEFLEX- WECK CLOSURE SYS 03/29/2025 [id number] / / [id number] Sealant Progel Pleural 4ml [id number] - [id number] Implanted:Qty: 1 on 09/13/2020 by Dimitri Simon MD at [facility] Tissue Left: Lung CR BARD- [employer] 03/30/2021 [id number] / / [id number] Procedures Procedure Name Priority Date/Time Associated Diagnosis Comments COMPREHENSIVE METABOLIC PANEL Routine 08/19/2024 3:24 PM CORRECTION OFFICER CBC WITH DIFFERENTIAL Routine 08/19/2024 2:28 PM CORRECTION OFFICER BASIC METABOLIC PANEL Routine 08/19/2024 2:[address] CHEST W WO CONTRAST Routine 12:16 PM CORRECTION OFFICER CREATININE Routine 07/31/2024 4:56 PM CORRECTION OFFICER from Last 3 Months Results * COMPREHENSIVE METABOLIC PANEL (08/19/2024 3:24 PM CORRECTION OFFICER) Blood us Bismark Vines MD CHEMISTRY ORDERABLES Final Resu lt * CBC WITH DIFFERENTIAL (08/19/2024 2:28 PM CORRECTION OFFICER) Blood us Bismark Vines MD HEMATOLOGY ORDERABLES Final Res ult * BASIC METABOLIC PANEL (08/19/2024 2:27 PM CORRECTION OFFICER) Blood us Bismark Vines MD CHEMISTRY ORDERABLES Final Resu lt * CT CHEST W WO CONTRAST (08/01/2024 12:16 PM CORRECTION OFFICER) Anatomical Region Laterality Modality Chest Other Bismark Vines MD CT ORDERABLES Final Result * CREATININE (07/31/2024 4:56 PM CORRECTION OFFICER) Blood us Bismark Vines MD CHEMISTRY ORDERABLES Final Resu lt from Last 3 Months Insurance [facility] Address: [place] [address] RX MEDIMPACT Member Subscriber Plan / Payer (Ef fective 2016-Present) Name:Sharmila Azevedo Relation to Subscriber:Self Name:Sharmila Azevedo Payer ID:Not on file Group ID:[id number] Type:RX Medicare Part D Address: [facility] Address: [place] [address] Advance Directives For more information, please contact: [phone] Documents on File Type Date Recorded Patient Esthetics Instructor Expl anation Advance Directive POA 09/07/2020 7:29 AM Ad taylor Directive POA * Full Code (Latest Code Status on File) Date Activated Date Inactivated Comments 09/14/2020 12:10 AM 09/21/2020 7:58 PM * Full Code Date Activated Date Inactivated Comments 09/13/2020 9:54 AM 09/14/2020 12:10 AM Care Teams Acid Bleacher Relationship Specialty Start Date End Date Shilpi Christianson MD [address] [place] [phone] PCP - General Family Practice 07/15/20
--- OUTSIDE RECORDS SUMMARY | 2024-09-03 09:01 | XMS_ITS | Encounter Summary ---
Author Organization [facility] Address [address] [place] [address] Care Team Providers Care Environmental Science Instructor Name Role Phone Shilpi Christianson MD Primary Care Provider Reason for Visit * Reason Onset Date Comments A-FIB RVR 09/15/2020 CRISTINA ELIAS EX Encounter Details Date Type Department Care Team (Late Contact Info) Description 09/15/2020 Telephone [facility] Admitting [address] [place] [address] [place] [address] [address] A-FIB RVR (CRISTINA GREGORY EX) Social History Tobacco Use Types Packs/Day Years Used Date Smoking Tobacco: Every Day Cigarettes 1 57 Smokeless Tobacco: Never Alcohol Use Standard Drinks/Week Comments Yes 14 (1 standard drink = 0.6 oz pu re alcohol) Comments No Sex and Gender Information Value Date Recorded Sex Assigned at Not on file Legal Sex Female 11:48 PM CDT Gender Identity Not on file Sexual Orientation Not on file COVID-19 Exposure Response Date Recorded In the last month, have you been in contact with someone who was confirmed or suspected to have Coronavirus / COVID-19? No / Unsure 09/13/2020 10:15 AM GOVERNMENT CONTRACTS MANAGER documented as of this encounter Plan of Treatment Upcoming Encounters Date Type Department Care Team (Late st Contact Info) Description 09/10/2024 4:30 PM GOVERNMENT CONTRACTS MANAGER Telephone Check Up [facility] Oncology and Hematology - [place] [address] [place] [address] Bismark Vines MD [address] [facility] [address] [place] [address] documented as of this encounter Visit Diagnoses Not on filedocumented in this encounter Care Teams Environmental Science Instructor Relationship Specialty Start Date End Date Shilpi Christianson MD [address] [place] [address] PCP - General Family Practice 07/15/20 documented as of this encounter
[2024-09-03 10:07] LABS: INR 0.9; Prothrombin Time 12.4 Seconds (11.1-14.7)
--- NOTE | 2024-09-03 13:40 | SUR.PHASEII ---
8682 - dr. foster called and okayed for patient to move onto back and for n/c to be discontinued
--- NOTE | 2024-09-03 14:56 | SUR.PHASEII ---
1450 - dr. foster called and stated that patient is ok to be discharged
== END 2024-09-03 15:12 | disposition home or self-care (01) ==
PROVIDERS: PCP Family Medicine; Referring Provider Internal Medicine Hematology & Oncology; Visit Provider Radiology Diagnostic Radiology
PROC: BB24ZZZ Computerized Tomography (CT Scan) of Bilateral Lungs (ICD-10-PCS; CPT 32408; principal; 2024-09-03 11:00)
DX: C34.92 Malignant neoplasm of unspecified part of left bronchus or lung (principal); R91.8 Other nonspecific abnormal finding of lung field
CPT/HCPCS: 32408; 36415; 71045; 85610; 88305

== ENCOUNTER 2024-09-24 09:10 | Outpatient (CLI) | payer OTHER, SELFPAY ==
--- OUTSIDE RECORDS SUMMARY | 2024-09-24 09:52 | XMS_ITS | Clinical Summary ---
Author Organization [facility] Pablo Knowles Address [address] [place] [address] Care Team Providers Care Undercover Agent Name Role Phone Shilpi Christianson MD Primary [...] original. CT Surgery[place] [address] [facility] [address] [facility], [address] Problem Noted Date Diagnosed Date Severe protein-calorie malnutrition 09/14/2020 Non-small cell cancer of left lung 06/14/2020 HTN (hypertension) Pneumothorax Encounters Date Type Department Care Team Description 09/22/2024 Orders Only [facility] Oncology and Hematology - [place] [address] [place] [address] Bismark Vines MD 09/18/2024 Abstract [facility] Cardiovas and Thor Surg at [place] [address] [facility] [address] [place] [address] Dimitri Simon MD 09/17/2024 External Device Data STL ABSTRACTION Provider, Abstract 09/15/2024 Telephone [facility] Cardiovas and Thor Surg at [place] [address] [facility] [address] [place] [address] Dimitri Simon MD Information 09/12/2024 4:30 PM RURAL MAIL CARRIER Telephone Check Up [facility] Oncology and Hematology [facility] [address] [place] [address] Bismark Vines MD Non-small cell cancer of left lung (CMS/HCC) (Primary Dx) 08/27/2024 External Device Data STL ABSTRACTION Provider, Abstract 08/21/2024 External Device Data STL ABSTRACTION Provider, Abstract 08/20/2024 Orders Only [facility] Oncology and Hematology [facility] [address] [place] [address] Bismark Vines MD 08/19/2024 10:00 AM RURAL MAIL CARRIER Office Visit [facility] Oncology and Hematology [facility] [address] [place] [address] Bismark Vines MD Non-small cell cancer of left lung (CMS/HCC) (Primary Dx) 08/08/2024 Orders Only [facility] Oncology and Hematology [facility] [address] [place] [address] Bismark Vines MD 08/06/2024 Orders Only [facility] Oncology and Hematology [facility] [address] [place] [address] Bismark Vines MD from Last 3 Months Immunizations Immunization Administration Dates Next Due ([employer])(12 YR UP) COVID-19 VACCINE - EMERGENCY USE AUTHORIZATION, MRNA, [id number](PF) 30 MCG/0.3 ML IM SUSP 06/04/2021 Family [...] Comments Blood Pressure 146/69 08/19/2024 10:10 AM RURAL MAIL CARRIER Pulse 59 08/19/2024 10:10 AM RURAL MAIL CARRIER Temperature 36.7 C (98.1 F) 08/19/2024 10:10 AM RURAL MAIL CARRIER Respiratory Rate 16 08/19/2024 10:10 AM RURAL MAIL CARRIER Oxygen Saturation 91% 08/19/2024 10:10 AM RURAL MAIL CARRIER Inhaled Oxygen Concentration - - Weight 60.3 kg (133 lb) 08/19/2024 10:10 AM RURAL MAIL CARRIER Height 167.6 cm (5' 6 ) 02/06/2022 12:07 PM CDT Body Mass Index 21.47 02/06/2022 12:07 PM CDT Plan of Treatment Upcoming Encounters Date Type Department Care Team (Late st Contact Info) Description 10/07/2024 4:30 PM CDT Telephone Check Up [facility] Oncology and Hematology - [place] [address] [facility] [address] [place] [address] Bismark Vines MD [address] [facility] [address] [place] [address] 10/08/2024 11:00 AM CDT Office Visit [facility] Cardiovas and Thor Surg at [facility] [address] [facility] [address] [place] [address] Dimitri Simon MD [address] [facility] [address] [place] [address] 10/08/2024 12:30 PM CDT Appointment [facility] [address] [place] [address] Health Maintenance Due Date Last Done Comments DTAP/TDAP/TD VACCINES (1 - Tdap) 1966 PNEUMOCOCCAL VACCINE 65+ YEARS (1 of 1 - PCV) 06/29/19 97 ZOSTER VACCINE (1 of 2) 1997 OSTEOPOROSIS SCREENING 2012 RSV VACCINE (60+ or ) (1 - 1-dose 75+ series) 2022 INFLUENZA VACCINE (#1) 2024 COVID-19 Vaccine (2 - season) 03/30/202412/2020 Medical Devices Implanted Type Area Continuity Manager Device Identifier Shelf Expiration Date Model / Serial / Lot Clip Hemolok [id number] [id number] - Csc - [id number] Implanted:Qty: 1 on 09/13/2020 by Dimitri Simon MD at [facility] Clip Left: Lung TELEFLEX- WECK CLOSURE SYS 03/29/2025 [id number] / / [id number] Sealant Progel Pleural 4ml [id number] - [id number] Implanted:Qty: 1 on 09/13/2020 by Dimitri Simon MD at [facility] Tissue Left: Lung CR BARD- [employer] INC 03/30/2021 [id number] / / [id number] Procedures Procedure Name Priority Date/Time Associated Diagnosis Comments PATHOLOGY REPORT Routine 09/03/2024 2:21 PM RURAL MAIL CARRIER COMPREHENSIVE METABOLIC PANEL Routine 08/19/2024 3:24 PM RURAL MAIL CARRIER CBC WITH DIFFERENTIAL Routine 08/19/2024 2:28 PM RURAL MAIL CARRIER BASIC METABOLIC PANEL Routine 08/19/2024 2:[address] CHEST W WO CONTRAST Routine 12:16 PM RURAL MAIL CARRIER CREATININE Routine 07/31/2024 4:56 PM RURAL MAIL CARRIER from Last 3 Months Results * PATHOLOGY REPORT (09/03/2024 2:21 PM RURAL MAIL CARRIER) us Bismark Vines MD PATHOLOGY/CYTOLOGY ORDERABLES F inal Result * COMPREHENSIVE METABOLIC PANEL (08/19/2024 3:24 PM RURAL MAIL CARRIER) Blood us Bismark Vines MD CHEMISTRY ORDERABLES Final Resu lt * CBC WITH DIFFERENTIAL (08/19/2024 2:28 PM RURAL MAIL CARRIER) Blood Bismark Vines MD HEMATOLOGY ORDERABLES Final Res ult * BASIC METABOLIC PANEL (08/19/2024 2:27 PM RURAL MAIL CARRIER) Blood Bismark Vines MD CHEMISTRY ORDERABLES Final Resu lt * CT CHEST W WO CONTRAST (08/01/2024 12:16 PM RURAL MAIL CARRIER) Anatomical Region Laterality Modality Chest Other Bismark Vines MD CT ORDERABLES Final Result * CREATININE (07/31/2024 4:56 PM RURAL MAIL CARRIER) Blood Bismark Vines MD CHEMISTRY ORDERABLES Final Resu lt from Last 3 Months Insurance [facility] RX MEDIMPACT Member Subscriber Plan / Payer (Ef fective 2016-Present) Name:Betzy Azevedo Relation to Subscriber:Self Name:Betzy Azevedo Payer ID:Not on file Group ID:[id number] Type:RX Medicare Part D Address: [facility] M[facility] Advance Directives For more information, please contact: [phone] Documents on File Type Date Recorded Patient Industrial Controller Expl anation Advance Directive POA 09/07/2020 7:29 AM Ad taylor Directive POA * Full Code (Latest Code Status on File) Date Activated Date Inactivated Comments 09/14/2020 12:10 AM 09/21/2020 7:58 PM * Full Code Date Activated Date Inactivated Comments 09/13/2020 9:54 AM 09/14/2020 12:10 AM Care Teams Undercover Agent Relationship Specialty Start Date End Date Shilpi Christianson MD [address] [place] [phone] PCP - General Family Practice 07/15/20
--- OUTSIDE RECORDS SUMMARY | 2024-09-24 09:52 | XMS_ITS | Encounter Summary ---
Author Organization [facility] Address [address] [place] [address] Care Team Providers Care Station Worker Name Role Phone Shilpi Christianson MD Primary Care Provider Reason for Visit * Reason Onset Date Comments A-FIB RVR 09/15/2020 CRISTINA ANTONIO ON EX Encounter Details Date Type Department Care Team (Late st Contact Info) Description 09/15/2020 Telephone [facility] Admitting [address] [place] [address] [place] [address] [address] A-FIB RVR (CRISTINA GREGORY EX) [...] COVID-19? No / Unsure 09/13/2020 10:15 AM SEARCH STRATEGIST documented as of this encounter Plan of Treatment Upcoming Encounters Date Type Department Care Team (Late st Contact Info) Description 10/07/2024 4:30 PM CDT Telephone Check Up [facility] Oncology and Hematology - [place] [address] [facility] [address] [place] [address] Bismark Vines MD [address] [facility] [address] [place] [address] 10/08/2024 11:00 AM CDT Office Visit [facility] Cardiovas and Thor Surg at [facility] [address] [facility] [address] [place] [address] Dimitri Simon MD [address] [facility] [address] [place] [address] 10/08/2024 12:30 PM CDT Appointment [facility] [address] [place] [address] documented as of this encounter Visit Diagnoses Not on filedocumented in this encounter Care Teams Station Worker Relationship Specialty Start Date End Date Shilpi [place] MD [address] [place] [address] PCP - General Family Practice 07/15/20 documented as of this encounter
--- OUTSIDE RECORDS SUMMARY | 2024-09-24 09:52 | XMS_ITS | Encounter Summary ---
Author Organization [facility] ManagerComplete [facility] Address [address] [place] [address] Care Team Providers Care Manager House Name Role Phone Shilpi Christianson MD Primary Care Provider Encounter Details Date Type Department Care Team (Late Contact Info) Description 09/22/2024 Orders Only [facility] Oncology and Hematology - Deonte [address] [place] [address] Bismark Vines MD [facility] [place] [address] Social History Tobacco Use Types Packs/Day Years Used Date Smoking Tobacco: Former Cigarettes 1.5 57 0 07/30/1963 - 07/30/2020 Smokeless Tobacco: Never Alcohol Use Standard Drinks/Week Comments Yes 14 (1 standard drink = 0.6 oz pu re alcohol) Comments No Sex and Gender Information Value Date Recorded Sex Assigned at Not on file Legal Sex Female 11:48 PM CDT Gender Identity Not on file Sexual Orientation Not on file documented as of this encounter Plan of Treatment Upcoming Encounters Date Type Department Care Team (Late Contact Info) Description 10/07/2024 4:30 PM CDT Telephone Check Up [facility] Oncology and Hematology - Deonte [address] [place] [address] Bismark Vines MD [address] [place] [address] 10/08/2024 11:00 AM CDT Office Visit [facility] Cardiovas and Thor Surg at [facility] [address] [address] [place] [address] Dimitri Simon MD [address] [facility] [address] [place] [address] 10/08/2024 12:30 PM CDT Appointment [facility] [address] [place] [address] documented as of this encounter Procedures Procedure Name Priority Date/Time Associated Diagnosis Comments PATHOLOGY REPORT Routine 09/03/2024 2:21 PM FITNESS CENTER ATTENDANT documented in this encounter Results * PATHOLOGY REPORT (09/03/2024 2:21 PM FITNESS CENTER ATTENDANT) Bismark Vines MD PATHOLOGY/CYTOLOGY ORDERABLES F inal Result documented in this encounter Visit Diagnoses Not on filedocumented in this encounter Care Teams Manager House Relationship Specialty Start Date End Date Shilpi Christianson MD [address] [place] [address] PCP - General Family Practice 07/15/20 documented as of this encounter
--- NOTE | 2024-09-25 10:38 | WPDPFTINT ---
PFT Procedure Performed PFT Procedure Performed Spirometry with Pre/Post Bronchodilator Plethysmography (Lung Vol) Diffusing Cap (DLCO) Flow Vol Loop PFT Interpretation Lung volumes were measured with the body plethysmography method. Lung volumes are unremarkable. Spirometry showed diminished expiratory flow rates and a diminished FEV1 to FVC ratio of 59%, consistent with obstructive airway disease. Following administration of a bronchodilator there was no significant increase in the expiratory flow rates when calculated on the basis of 2019 ATS/ERS guidelines. Lung diffusion capacity is moderately reduced at 50% predicted. This diminished lung diffusion capacity coupled with a low alveolar volume and a normal DLCO/VA ratio suggests loss of alveolar capillary structure with loss of lung volume as seen in emphysema or interstitial lung disease. Impression: Moderate obstructive airway disease with no response to bronchodilators on this testing. Moderately reduced lung diffusion capacity.
== END 2024-09-24 09:11 | disposition home or self-care (01) ==
PROVIDERS: PCP Family Medicine; Visit Provider Family Medicine
DX: R06.02 Shortness of breath (principal); C34.32 Malignant neoplasm of lower lobe, left bronchus or lung; R94.2 Abnormal results of pulmonary function studies
CPT/HCPCS: 94060; 94726; 94729

== ENCOUNTER 2024-09-30 10:47 | Outpatient (CLI) | payer OTHER, SELFPAY ==
[2024-09-30 11:11] LABS: Glucose Point of Care 84 mg/dl (65-105)
== END 2024-09-30 10:48 | disposition home or self-care (01) ==
PROVIDERS: PCP Family Medicine; Visit Provider Internal Medicine Hematology & Oncology
DX: C34.12 Malignant neoplasm of upper lobe, left bronchus or lung (principal)
CPT/HCPCS: 78815; A9552

== ENCOUNTER 2024-11-10 08:36 | Outpatient (CLI) | payer OTHER, SELFPAY ==
--- NOTE | ~2024-11-10 | NM_ITS ---
EXAMINATION: NM marcy stress w perfusion DATE: 11/10/2024 13:23 CDT INDICATION: Preprocedural cardiac examination TECHNIQUE: Rest images were obtained following intravenous administration of 11.3 mCi Tc99m tetrofosm in (Myoview). The patient was infused intravenously with Lexiscan (regadenoson). Then, 34.6 mCi Tc99m tetrofosmin (Myoview) was administered intravenously, and stress images were obtained. Data was eric nstructed into short axis and horizontal and vertical long axis SPECT images. Gated SPECT images were also obtained. COMPARISON: None. FINDINGS: There is no definite reversible or fixed perfusion abnormality to suggest ischemia or infar ction. There is no segmental wall motion abnormality. Left ventricular ejection fraction measures 7 0%. IMPRESSION: 1. No definite ischemia or infarct. 2. Normal left ventricular ejection fraction measuring 70%. Reviewed, dictated and finalized at location B.
--- NOTE | 2024-11-10 08:43 | EST_ITS ---
Patient Info Name: Sharmila Azevedo Age: 79 years : 1945 Gender: Female Ht: 66 in Wt: 136 lbs BSA: 1.70 m2 HR: 56 bpm BP: 120 / 80 mmHg Exam Date: 11/10/2024 10:06 AM Exam Location: Echo Lab Patient Status: Outpatient Admit Date: 11/10/2024 Staff Ordering Physician: Abdoulaye Amaro DO Attending Provider: Abdoulaye Amaro DO Exercise Technologist: belinda de santiago Exercise Physician: Abdoulaye Amaro DO Exam Type: CA stress marcy w NM Study Info Indications Z01.810 - Encounter for preprocedural cardiovascular examination A regadenoson stress test was performed. Summary 1. 1. Negative lexiscan stress test for ischemic ST changes by ECG criteria. 2. 2. Stable hemodynamics throughout the test. 3. 3. Nuclear scan to follow and will be reported separately. Please correlate with it. 4. 4. Patient informed of the above results. Protocol: Lexiscan Stress ECG Details Stage: REST Duration (min): 0 min : 26 sec HR (bpm): 55 SBP (mmHg): --- DBP (mmHg): --- Stage: REST Duration (min): 1 min : 38 sec HR (bpm): 56 SBP (mmHg): 120 DBP (mmHg): 80 Stage: REST Duration (min): 7 min : 55 sec HR (bpm): 60 SBP (mmHg): 120 DBP (mmHg): 80 Stage: STAGE 1 Duration (min): 1 min : 0 sec HR (bpm): 72 SBP (mmHg): 115 DBP (mmHg): 81 Stage: RECOVERY Duration (min): 1 min : 0 sec HR (bpm): 80 SBP (mmHg): 115 DBP (mmHg): 81 Stage: RECOVERY Duration (min): 2 min : 0 sec HR (bpm): 76 SBP (mmHg): 115 DBP (mmHg): 81 Stage: RECOVERY Duration (min): 2 min : 2 sec HR (bpm): 75 SBP (mmHg): 115 DBP (mmHg): 81 Rest HR: 60 bpm Peak HR: 80 bpm Rest Sys BP: 120 mmHg Peak Sys BP: 115 mmHg Max Pred HR: 143 bpm % Max Pred HR: 56 % Target HR: 122 bpm Max RPP: 9,200 bpm*mmHg Termination Reason: Completed protocol Cardiac Symptoms: Shortness of breath Total Time: 1 min : 0 sec Rest Welch BP: 80 mmHg Peak Welch BP: 81 mmHg Total Dose: 0.4 mg Resting ECG Sinus rhythm. Stress ECG No ST changes. Arrhythmias None. Report Signatures
--- OUTSIDE RECORDS SUMMARY | 2024-11-10 08:55 | XMS_ITS | Encounter Summary ---
Author Organization [facility] Address [address] [place] [address] Care Team Providers Care Brush Maker Machine Name Role Phone Shilpi Christianson MD Primary Care Provider Reason for Visit * Reason Onset Date Comments A-FIB RVR 09/15/2020 CRISTINA ANTONIO ON EX Encounter Details Date Type Department Care Team (Late st Contact Info) Description 09/15/2020 Telephone [facility] Admitting [address] [place] [address] [place] [address] [address] A-FIB RVR (CRISTINA GREGORY EX) [...] COVID-19? No / Unsure 09/13/2020 10:15 AM [employer] documented as of this encounter Plan of Treatment Upcoming Encounters Date Type Department Care Team (Late st Contact Info) Description 11/27/2024 9:45 AM CDT Office Visit [facility] Oncology and Hematology - [place]onte [address] [facility] [address] [place] [address] Bismark Vines MD [address] [facility] [address] [place] [address] documented as of this encounter Visit Diagnoses Not on filedocumented in this encounter Care Teams Brush Maker Machine Relationship Specialty Start Date End Date Shilpi Christianson MD [address] [place] [address] PCP - General Family Practice 07/15/20 documented as of this encounter
--- OUTSIDE RECORDS SUMMARY | 2024-11-10 08:55 | XMS_ITS | Clinical Summary ---
Author Organization [facility] Pablo Knowles Address [address] [place] [address] Care Team Providers Care Senior Product Development Engineer Name Role Phone Shilpi Christianson MD Primary Care Provider Allergies No known active allergies Medications perindopril erbumine (ACEON) 8 mg Tablet Take 8 mg by mouth daily. Taking 2 timeS daily 10/25/2020 Active B-complex + vitamin C (SUPER B-C) Tablet Take 1 Tablet by mouth daily at bedtime. Active cholecalciferol , Vitamin D3, (D3 DOTS) 50 mcg (2,000 unit) Tablet Take 2,000 Units by mouth daily. Active calcium carbonate + vitamin D (CALTRATE+D) 600 mg(1,500mg) -400 unit Tablet Take 2 Tablets by mouth 2 times daily with meals. Active aspirin (ECOTRIN EC) 81 mg Tablet, Delayed Release (E.C.) Take 81 mg by mouth daily. Active metoprolol succinate (TOPROL XL) 25 mg Extended Release 24 hour tablet 50 mg. Two 25 mg once a day 11/12/2020 Active ferrous sulfate 325 mg (65 mg iron) tablet Take 325 mg by mouth daily. Active L. acidophilus/L. rhamnosus (PROBIOTIC ORAL) Take by mouth. Active Active Problems Patient Care Coordination No te Formatting of this note migh t be different from the original. CT Surgery- [place] [address], [address] Problem Noted Date Diagnosed Date Severe protein-calorie malnutrition 09/14/2020 Non-small cell cancer of left lung 06/14/2020 HTN (hypertension) Pneumothorax Encounters Date Type Department Care Team Description 11/07/2024 Telephone [facility] Oncology and Hematology [facility] [address] [place] [address] Bismark Vines MD Rad Consult 10/27/2024 Orders Only [facility] Oncology and Hematology [facility] [address] [place] [address] Bismark Vines MD Non-small cell cancer of left lung (CMS/HCC) (Primary Dx) 10/16/2024 9:49 AM CDT - 10/16/2024 11:59 PM CDT Hospital Encounter [address] [phone] Dimitri Simon MD Discharge Disposition: Home or Self Care 10/15/2024 External Device Data STL ABSTRACTION Provider, Abstract 10/15/2024 External Device Data STL ABSTRACTION Provider, Abstract 10/08/2024 11:00 AM CDT Office Visit [facility] Cardiovas and Thor Surg at [facility] [address] [place] [address] Dimitri Simon MD Non-small cell cancer of left lung (CMS/HCC) (Primary Dx) 10/07/2024 4:30 PM CDT Telephone Check Up [facility] Oncology and Hematology [facility] [address] [place] [address] Bismark Vines MD 10/04/2024 External Device Data STL ABSTRACTION Provider, Abstract 10/04/2024 External Device Data STL ABSTRACTION Provider, Abstract 09/30/2024 Orders Only [facility] Oncology and Hematology [facility] [address] [place] [address] Bismark Vines MD 09/22/2024 Orders Only [facility] Oncology and Hematology [facility] [address] [place] [address] Bismark Vines MD 09/18/2024 Abstract [facility] Cardiovas and Thor Surg at [address] [address] Dimitri Simon MD 09/17/2024 External Device Data STL ABSTRACTION Provider, Abstract 09/15/2024 Telephone [facility] Cardiovas and Thor Surg at [address] [place] [phone] Dimitri Simon MD Information 09/12/2024 4:30 PM SOURCE WATER PROTECTION SPECIALIST Telephone Check Up [facility] Oncology and Hematology - [place] [address] [place] [address] Bismark Vines MD Non-small cell cancer of left lung (CMS/HCC) (Primary Dx) 08/27/2024 External Device Data STL ABSTRACTION Provider, Abstract 08/21/2024 External Device Data STL ABSTRACTION Provider, Abstract 08/20/2024 Orders Only [facility] Oncology and Hematology [place] [address] [place] [address] Bismark Vines MD 08/19/2024 10:00 AM SOURCE WATER PROTECTION SPECIALIST Office Visit [facility] Oncology and Hematology - [address] [place] [address] Bismark Vines MD Non-small cell cancer of left lung (CMS/HCC) (Primary Dx) from Last 3 Months Immunizations Immunization Administration Dates Next Due ([employer])(12 YR UP) COVID-19 VACCINE - EMERGENCY USE AUTHORIZATION, MRNA, [id number]) 30 MCG/0.3 ML IM SUSP 06/04/2021 Family [...] Sign Reading Time Taken Comments Blood Pressure 140/68 10/08/2024 11:08 AM CDT Pulse 65 10/08/2024 11:08 AM CDT Temperature 36.7 C (98.1 F) 08/19/2024 10:10 AM SOURCE WATER PROTECTION SPECIALIST Respiratory Rate 16 08/19/2024 10:10 AM SOURCE WATER PROTECTION SPECIALIST Oxygen Saturation 96% 10/08/2024 11:08 AM CDT Inhaled Oxygen Concentration - - Weight 60.8 kg (134 lb) 10/08/2024 11:08 AM CDT Height 167.6 cm (5' 6 ) 10/08/2024 11:08 AM CDT Body Mass Index 21.63 10/08/2024 11:08 AM CDT Plan of Treatment Upcoming Encounters Date Type Department Care Team (Late st Contact Info) Description 11/27/2024 9:45 AM CDT Office Visit [facility] Oncology and Hematology - [place] [address] [facility] [address] [place] [address] Bismark Vines MD [address] [facility] [address] [place] [address] Health Maintenance Due Date Last Done Comments DTAP/TDAP/TD VACCINES (1 - Tdap) 1966 PNEUMOCOCCAL VACCINE 50+ YEARS (1 of 1 - PCV) 06/29/19 97 ZOSTER VACCINE (1 of 2) 1997 OSTEOPOROSIS SCREENING 2012 RSV VACCINE (60+ or ) (1 - 1-dose 75+ series) 2022 INFLUENZA VACCINE (#1) 2024 COVID-19 Vaccine (2 - 2024) 03/30/202412/2020 Medicare Advantage ([place]) Prev entative Visit/Annual Wellness Visit 07/30/2024 Medical Devices Implanted Type Area Table Maker Device Identifier Shelf Expiration Date Model / Serial / Lot Clip Hemolok [id number] [id number] - Csc - [id number] Implanted:Qty: 1 on 09/13/2020 by Dimitri Simon MD at [facility] Left: Lung TELEFLEX- WECK CL[employer]URE SYS 03/29/2025 [id number] / / [id number] Sealant Progel Pleural 4ml [id number] - [id number] Implanted:Qty: 1 on 09/13/2020 by Dimitri Simon MD at [facility] Left: Lung CR [employer]ARD[employer] 03/30/2021 [id number] / / [id number] Procedures Procedure Name Priority Date/Time Associated Diagnosis Comments NM LUNG DAVION DIFF FUNC VENT PERF Routine 10/16/2024 11:08 AM CDT Non-small cell cancer of left lung (CMS/HCC) PET BONE IMG W CT SKL BSE MID THG Routine 09/30/2024 4:01 PM SOURCE WATER PROTECTION SPECIALIST PATHOLOGY REPORT Routine 09/03/2024 2:21 PM SOURCE WATER PROTECTION SPECIALIST COMPREHENSIVE METABOLIC PANEL Routine 08/19/2024 3:24 PM SOURCE WATER PROTECTION SPECIALIST CBC WITH DIFFERENTIAL Routine 08/19/2024 2:28 PM SOURCE WATER PROTECTION SPECIALIST BASIC METABOLIC PANEL Routine 08/19/2024 2:27 PM SOURCE WATER PROTECTION SPECIALIST from Last 3 Months Results * NM LUNG DAVION DIFF FUNC VENT PERF (10/16/2024 11:08 AM CDT) Anatomical Region Laterality Modality Chest Nuclear Medicine 10/16/2024 11:1 0 AM CDT Impressions 10/16/2024 12:07 PM CDT IMPRESSION: 1. No evidence of acute pulmonary embolism. 2. Areas of air-trapping bilaterally, likely relating to underlying emphysema/COPD. 3. Quantitative perfusion as detailed above, approximately 25% of the left lung and 75% to the right lung. DICTATION LOCATION: Location 1 - [facility] 10/16/2024 12:07 PM CDT NM LUNG PLANAR QUANTIFICATION IMAGING with ventilation imaging (PLANAR DIFFERENTIAL LUNG PERFUSION SCAN WITH QUANTITATION) DATE: 10/16/2024 11:08 AM HISTORY: Non-small cell left lung cancer. History of left lower lobectomy. Now with left upper lobe lung cancer, evaluate for pneumonectomy. Assess differential pulmonary perfusion. COMPARISON: Several chest x-rays, most recent 10/13/2020 PROCEDURE: : Dynamic ventilation with Xenon-133 followed by multiple static perfusion images utilizing 99m-Technetium MAA (Macro Aggregated Albumin). Planar images of the lungs acquired in multiple projections. Static lung differential quantitation was performed using the geometric mean of the counts. RADIOPHARMACEUTICALS: 16.5 mCi gaseous Xenon-133 for ventilation. 4.2 mCi 99m-Technetium MAA (Macro Aggregated Albumin) for perfusion. ROUTE OF INJECTION: Left antecubital fossa IV IMAGE QUALITY: Satisfactory. FINDINGS: Ventilation images demonstrate some early patchy defects in the right midlung and left base, which fill in readily on equilibrium images. There is some mild air trapping in these regions. Perfusion images demonstrate a much smaller left lung, compatible with prior surgical resection changes. No focal wedge-shaped perfusion defects to suggest active embolic disease.. Differential lung quantitation by planar geometric mean: Right: 75.2 % Right upper lun.5% Right mid lun.8% Right lower lun.9% Left: 24.8 % Left upper lun.6% Left mid lun.2% Left lower lun.0% Please note that the left lung perfusion percentages are impacted by the anatomic distortion of prior lobectomy. Procedure Note Mayur Perkins MD - 10/16/2024 NM LUNG PLANAR QUANTIFICATION IMAGING with ventilation imaging (PLANAR DIFFERENTIAL LUNG PERFUSION SCAN WITH QUANTITATION) DATE: 10/16/2024 11:08 AM HISTORY: Non-small cell left lung cancer. History of left lower lobectomy. Now with left upper lobe lung cancer, evaluate for pneumonectomy. Assess differential pulmonary perfusion. COMPARISON: Several chest x-rays, most recent 10/13/2020 PROCEDURE: : Dynamic ventilation with Xenon-133 followed by multiple static perfusion images utilizing 99m-Technetium MAA (Macro Aggregated Albumin). Planar images of the lungs acquired in multiple projections. Static lung differential quantitation was performed using the geometric mean of the counts. RADIOPHARMACEUTICALS: 16.5 mCi gaseous Xenon-133 for ventilation. 4.2 mCi 99m-Technetium MAA (Macro Aggregated Albumin) for perfusion. ROUTE OF INJECTION: Left antecubital fossa IV IMAGE QUALITY: Satisfactory. FINDINGS: Ventilation images demonstrate some early patchy defects in the right midlung and left base, which fill in readily on equilibrium images. There is some mild air trapping in these regions. Perfusion images demonstrate a much smaller left lung, compatible with prior surgical resection changes. No focal wedge-shaped perfusion defects to suggest active embolic disease.. Differential lung quantitation by planar geometric mean: Right: 75.2 % Right upper lun.5% Right mid lun.8% Right lower lun.9% Left: 24.8 % Left upper lun.6% Left mid lun.2% Left lower lun.0% Please note that the left lung perfusion percentages are impacted by the anatomic distortion of prior lobectomy. IMPRESSION: 1. No evidence of acute pulmonary embolism. 2. Areas of air-trapping bilaterally, likely relating to underlying emphysema/COPD. 3. Quantitative perfusion as detailed above, approximately 25% of the left lung and 75% to the right lung. DICTATION LOCATION: Location 1 - [facility] Dimitri Simon MD NM ORDERABLES Final Result * PET BONE IMG W CT SKB MD (09/30/2024 4:01 PM SOURCE WATER PROTECTION SPECIALIST) Anatomical Region Laterality Modality Positron Emissio n Tomography (PET) Bismark Vines MD PE ORDERABLES Final Result * PATHOLOGY REPORT (09/03/2024 2:21 PM SOURCE WATER PROTECTION SPECIALIST) Bismark Vines MD PATHOLOGY/CYTOLOGY ORDERABLES F inal Result * COMPREHENSIVE METABOLIC PANEL (08/19/2024 3:24 PM SOURCE WATER PROTECTION SPECIALIST) Blood Bismark Vines MD CHEMISTRY ORDERABLES Final Resu lt * CBC WITH DIFFERENTIAL (08/19/2024 2:28 PM SOURCE WATER PROTECTION SPECIALIST) Blood Bismark Vines MD HEMATOLOGY ORDERABLES Final Res ult * BASIC METABOLIC PANEL (08/19/2024 2:27 PM SOURCE WATER PROTECTION SPECIALIST) Blood Bismark Vines MD CHEMISTRY ORDERABLES Final Resu lt from Last 3 Months Insurance Member Subscriber Plan / Payer (Ef fective 2016-Present) Name:Sharmila Azevedo Relation to Subscriber:Self Name:Sharmila Azevedo Payer ID:Not on file Group ID:[id number] Type:RX Medicare Part D Address: [address] Advance Directives For more information, please contact: [phone] Documents on File Type Date Recorded Patient Rope Twisting Machine Operator Expl anation Advance Directive POA 09/07/2020 7:29 AM Ad taylor Directive POA * Full Code (Latest Code Status on File) Date Activated Date Inactivated Comments 09/14/2020 12:10 AM 09/21/2020 7:58 PM * Full Code Date Activated Date Inactivated Comments 09/13/2020 9:54 AM 09/14/2020 12:10 AM Care Teams Senior Product Development Engineer Relationship Specialty Start Date End Date Shilpi Christianson MD [address] [place] [address] PCP - General Family Practice 07/15/20
== END 2024-11-10 08:37 | disposition home or self-care (01) ==
PROVIDERS: PCP Family Medicine; Visit Provider Internal Medicine Cardiovascular Disease
DX: Z01.810 Encounter for preprocedural cardiovascular examination (principal)
CPT/HCPCS: 78452; 93017; A9502; J2785

== ENCOUNTER 2025-03-02 08:48 | Outpatient (CLI) | payer OTHER, SELFPAY ==
--- NOTE | ~2025-03-02 | CT_ITS ---
Clinical Indication: Lung cancer CT Scan of the Chest with Contrast: Technique: Contiguous sections were acquired throughout the chest after intravenous administration of 75 cc of Omnipaque 350. Dose reduction technique was used on this scan by utilizing automated exposu re control and iterative reconstruction technique. The dose-length product (DLP) was 142.91 mGy-cm. COMPARISON: 09/30/2024 Findings: There is no evidence of any significant mediastinal, hilar or axillary lymphadenopathy. There is no f illing defect in the pulmonary arterial tree to suggest pulmonary embolus. There is no evidence of ao rtic dissection or aneurysm. No pericardial effusion. Status post left lower lobectomy with left basilar consolidation, which could reflect scarring/postop erative change and/or post reduction change. Minimal left pleural effusion present. Right lung clear. There are mild emphysematous changes in the upper lobes. Images through the upper abdomen reveal no abnormalities. Impression: No evidence for active malignancy or metastatic disease. Status post left lower lobectomy with probable postoperative scarring or atelectasis and/or postradia tion change of the posterior left midlung. Correlate clinically for pneumonia. Minimal left pleural effusion. Mild emphysema. Reviewed, dictated and finalized at [facility]. Impression: No evidence for active malignancy or metastatic disease. Status post left lower lobectomy with probable postoperative scarring or atelec tasis and/or postradiation change of the posterior left midlung. Correlate clin ically for pneumonia. Minimal left pleural effusion. Mild emphysema.
--- OUTSIDE RECORDS SUMMARY | 2025-03-02 08:56 | XMS_ITS | Encounter Summary ---
Author Organization [facility] Address [address] [place] [address] Care Team Providers Care Teacher Industrial Arts Name Role Phone Shilpi Christianson MD Primary Care Provider Reason for Visit * Reason Onset Date Comments A-FIB RVR 09/15/2020 CRISTINA ANTONIO ON EX Encounter Details Date Type Department Care Team (Late st Contact Info) Description 09/15/2020 Telephone [facility] Admitting [address] [place] [address] [place] [address] [address] A-FIB RVR (CRISTINA GREGORY EX) [...] COVID-19? No / Unsure 09/13/2020 10:15 AM KEY ACCOUNT EXECUTIVE documented as of this encounter Plan of Treatment Upcoming Encounters Date Type Department Care Team (Late st Contact Info) Description 03/09/2025 9:45 AM CDT Office Visit [facility] Oncology and Hematology - [place] [address] [facility] [address] [place] [address] Bismark Vines MD [address] [facility] [address] [place] [address] documented as of this encounter Visit Diagnoses Not on filedocumented in this encounter Care Teams Teacher Industrial Arts Relationship Specialty Start Date End Date Shilpi Christianson MD [address] [place] [address] PCP - General Family Practice 07/15/20 documented as of this encounter
--- OUTSIDE RECORDS SUMMARY | 2025-03-02 08:56 | XMS_ITS | Clinical Summary ---
Author Organization [facility] Address [address] [place] [address] Care Team Providers Care Professor Of Early Childhood Education Name Role Phone Shilpi Christianson MD Primary [...] original. CT Surgery[place] [id number], [address] Problem Noted Date Diagnosed Date Severe protein-calorie malnutrition 09/14/2020 Non-small cell cancer of left lung 06/14/2020 HTN (hypertension) Pneumothorax Encounters Date Type Department Care Team Description 02/11/2025 External Device Data [facility] ABSTRACTION Provider, Abstract 02/11/2025 External Device Data [facility] ABSTRACTION Provider, Abstract 01/20/2025 External Device Data [facility] ABSTRACTION Provider, Abstract 12/30/2024 8:45 AM CDT Office Visit [facility] [place] [address] [place] [address] Bismark Vines MD Non-small cell cancer of left lung (CMS/HCC) (Primary Dx) 12/30/2024 External Device Data ST[facility] ABSTRACTION Provider, Abstract 12/23/2024 External Device Data [facility] ABSTRACTION Provider, Abstract 12/23/2024 External Device Data [facility] ABSTRACTION Provider, Abstract 12/17/2024 External Device Data [facility] ABSTRACTION Provider, Abstract 12/16/2024 External Device Data [facility] ABSTRACTION Provider, Abstract from Last 3 Months Immunizations Immunization Administration Dates Next Due (Zyga)(12 YR UP) COVID-19 VACCINE - EMERGENCY USE AUTHORIZATION, MRNA, [id number](PF) 30 MCG/0.3 ML IM SUSP 06/04/2021 Family [...] Sign Reading Time Taken Comments Blood Pressure 134/80 12/30/2024 8:48 AM CDT Pulse 64 12/30/2024 8:48 AM CDT Temperature 36 C (96.8 F) 12/30/2024 8:48 AM CDT Respiratory Rate 15 12/30/2024 8:48 AM CDT Oxygen Saturation 93% 12/30/2024 8:48 AM CDT Inhaled Oxygen Concentration - - Weight 62.3 kg (137 lb 6.4 oz) 12/30/2024 8:48 A M CDT Height 167.6 cm (5' 6) 10/08/2024 11:08 AM CDT Body Mass Index 22.18 10/08/2024 11:08 AM CDT Plan of Treatment Upcoming Encounters Date Type Department Care Team (Late st Contact Info) Description 03/09/2025 9:45 AM CDT Office Visit [facility] [place] [address] [facility] [address] [place] [address] Bismark Vines MD [address] [facility] [address] [place] [address] Health Maintenance Due Date Last Done Comments DTAP/TDAP/TD VACCINES (1 - Tdap) 1966 PNEUMOCOCCAL VACCINE 50+ YEARS (1 of 1 - PCV) 06/29/19 97 ZOSTER VACCINE (1 of 2) 1997 OSTEOPOROSIS SCREENING 2012 RSV VACCINE (60+ or ) (1 - 1-dose 75+ series) 2022 COVID-19 Vaccine (2 - season) 03/30/202412/2020 INFLUENZA VACCINE (#1) 2025 Medical Devices Implanted Type Area Pathology Tech Device Identifier Shelf Expiration Date Model / Serial / Lot Clip Hemolok Lrg [id number] - Csc - [id number] Implanted:Qty: 1 on 09/13/2020 by Dimitri Simon MD at [facility] Left: Lung TELEFLEX- WECK CLOSURE SYS 03/29/2025 [id number] / / [id number] Sealant Progel Pleural 4ml [id number] - [id number] Implanted:Qty: 1 on 09/13/2020 by Dimitri Simon MD at [facility] Tissue Left: Lung [employer] 03/30/2021 [id number] / / [id number] Insurance RX MEDIMPACT Member Subscriber Plan / Payer (Ef fective 2016-Present) Name:Betzy Azevedo Relation to Subscriber:Self Name:Betzy Azevedo Payer ID:Not on file Group ID:[id number] Type:RX Medicare Part D Address: [address] Advance Directives For more information, please contact: [phone] Documents on File Type Date Recorded Patient Director Of Rooms Expl anation Advance Directive POA 09/07/2020 7:29 AM Ad taylor Directive POA * Full Code (Latest Code Status on File) Date Activated Date Inactivated Comments 09/14/2020 12:10 AM 09/21/2020 7:58 PM * Full Code Date Activated Date Inactivated Comments 09/13/2020 9:54 AM 09/14/2020 12:10 AM Care Teams Professor Of Early Childhood Education Relationship Specialty Start Date End Date Shilpi Christianson MD [address] [place] [address] PCP - General Family Practice 07/15/20
[2025-03-02 09:19] LABS: Estimated Glomerular Filt Rate 48
== END 2025-03-02 08:49 | disposition home or self-care (01) ==
PROVIDERS: PCP Family Medicine; Visit Provider Internal Medicine Hematology & Oncology
DX: C34.92 Malignant neoplasm of unspecified part of left bronchus or lung (principal); J43.9 Emphysema, unspecified
CPT/HCPCS: 71260; Q9967

== ENCOUNTER 2025-06-16 08:43 | Outpatient (CLI) | payer OTHER, SELFPAY ==
--- NOTE | ~2025-06-16 | CT_ITS ---
EXAMINATION:CT diagnostic chest w con DATE: 06/16/2025 09:09 INDICATION: Lung cancer TECHNIQUE: Computed tomography (CT) of the chest was performed with intravenous contrast. The dose-length product (DLP) was 144.90 mGy-cm. COMPARISON: March 02, 2025 FINDINGS: The left parahilar/left lower lobe region, 3.6 x 2.0 x 1.6 cm wedge-shaped soft tissue mass noted is slightly more consolidative in appearance compared to October 31 exam but not grossly changed given variation in measurement. No new nodules or masses. No consolidation effusion or pneumothorax. Pleural thickening also noted in the same area similar to the previous exam. Heart and great vessels appear stable with no thoracic aortic aneurysm or dissection. No central or large pulmonary emboli. No significant pericardial effusion or bulky lymphadenopathy. No acute process seen in the visualized upper abdomen, bony thorax or extra thoracic soft tissues. IMPRESSION:A 3.6 x 2.0 x 1.6 cm fibrosing appearing mass in the posterior surgical site grossly stable to the March 02 exam. No new lesions identified. Reviewed, dictated and finalized at location A. ISTICIAN APPLIED IMPRESSION:A 3.6 x 2.0 x 1.6 cm fibrosing appearing mass in the posterior surgi isaac site grossly stable to the March 02 exam. No new lesions identified.
[2025-06-16 09:06] LABS: Estimated Glomerular Filt Rate 54
== END 2025-06-16 08:44 | disposition home or self-care (01) ==
PROVIDERS: PCP Family Medicine; Visit Provider Internal Medicine Hematology & Oncology
DX: C34.92 Malignant neoplasm of unspecified part of left bronchus or lung (principal)
CPT/HCPCS: 71260; Q9967

== ENCOUNTER 2025-06-16 11:46 | Outpatient (CLI) | payer SELFPAY ==
--- NOTE | ~2025-06-16 | XR_ITS ---
XR lumbar spine min 4V Indication: Low back pain, pain x 2 years Comparison: None Findings: Levoconvex scoliosis. Grade 1 anterolisthesis of L3 on L4 and L4 on L5, no acute fracture. Severe loss of disc at L1-2, L2-3 and L5-S1. Soft tissues unremarkable Impression: No acute abnormality. Reviewed, dictated and finalized at location P. Y NUTRITION CONSULTANT Impression: No acute abnormality.
== END 2025-06-16 11:47 | disposition home or self-care (01) ==
LOC: GOSHIMG 11:46
PROVIDERS: PCP Family Medicine; Visit Provider Family Medicine
DX: M54.50 Low back pain, unspecified (principal); G89.29 Other chronic pain
CPT/HCPCS: 72110